=== PATIENT | female | born 1945 | race African-American/Black ===

== ENCOUNTER 2017-07-29 01:01 | Inpatient (IN) ==
[2017-07-29] MEDS ORDERED: SODIUM CHLORIDE 0.9% 1,000 ML IV STA (01:35)
--- NOTE | 2017-07-29 01:46 | Emergency Department Note ---
Carlos Valdez Brooke, am scribing for, and in the presence of, Erika Roach MD 01: 24. Doc Valdez Leanne, MD, personally performed the services described in this documentation, ascribed by Alma Gonzalez in my presence, and it is both accurate and complete . Arrival - Arrival Chief Complaint: Non-Specific ED Nursing Triage Note: C/O Trouble swallowing. Onset yesterday. Pt reports that everytime she eats or drinks something it feels like it gets stuck in her throat. Pt is able to swallow saliva at time of triage- no drooling or respiratory distress noted. Mode of Arrival: Stretcher Limitations: No Limitations Source: Patient, EMS, RN Notes Reviewed Time Seen by Provider: 07/29/17 01:17 - History of Present Illness HPI Narrative: Patient is a 71 year old female brought into the ED, from [facility], with c /o trouble swallowing. Patient says when she swallows it feels like something is "choking me." She says she is able to swallow but it not like she normally can. She states "it takes me a while" when swallowing. Patient says she has not eaten in three days but has been drinking broth. Patient has had her esophagus dilated in the past. She also complains of epigastric pain that radiates through to her back. She has no other complaints. Patient has PMHx of HTN, pneumonia, kidney stones, GI bleed, diverticulitis, chronic renal insufficiency , pancreatitis, GI ulces, mild esophagitis, jejunal AVMs, and back/neck problems. Date of Last Menstrual Period: PM Allergies/Adverse Reactions: Allergies Allergy/AdvReac Type Severity Reaction Status Date / Time Latex, Natural Rubber Allergy Intermediate RASH Verified 07/29/17 01:10 Zolpidem [From Ambien] Allergy Intermediate RASH Verified 07/29/17 01:10 acetaminophen Allergy ANAPHYLAXIS Verified 04/23/15 20:08 [From Darvocet-N] nalbuphine [From Nubain] Allergy ANAPHYLAXIS Verified 04/23/15 20:08 propoxyphene Allergy ANAPHYLAXIS Verified 04/23/15 20:08 [From Darvocet-N] Home Medications: Home Medications Medication Instructions Recorded Confirmed Type Amlodipine Besylate 10 mg DAILY 04/23/15 11/13/16 History Citalopram Hydrobromide 20 mg PO DAILY 04/23/15 11/13/16 History [Citalopram HBr] Donepezil [Aricept] 5 mg PO BEDTIME 04/23/15 11/13/16 History Esomeprazole Magnesium [Nexium] 40 mg DAILY 04/23/15 11/13/16 History Gabapentin 100 mg PO TID 04/23/15 11/13/16 History clonazePAM [Clonazepam] 0.5 mg PO BEDTIME 04/23/15 11/13/16 History HYDROcodone/ACETAMIN 10-325 [[place] 1 tablet PO Q4-6H PRN #20 tablet 04/25/15 Rx 10-325] Review of System - Review of System 12 point system: reviewed and no additional remarkable complaints except as stated - Review of System Constitutional: Absent: fever Head/Ears/Nose/Throat: Present: other (trouble swallowing) Respiratory: Absent: respiratory distress Gastrointestinal: Present: abdominal pain (epigastric) Musculoskeletal: Present: back pain (through from epigastric abd pain) Skin: Absent: rash Medical,Surgical,& Family Hx - Medical History Cardio: History of: Hypertension Neurology: No history of: Seizures Respiratory: History of: Pneumonia Renal: History of: Renal Problems (A chronic renal insufficiency) Genitourinary: History of: Kidney Stones Gastrointestinal: History of: Diverticulitis/ Diverticulosis, Gastrointestinal Bleed, Pancreatitis (calcific changes status post ERCP on 12/16/09 with sphincterotomy ), GI Problems (ulcers, mild esophagitis, jejunal AVMs.) Musculoskeletal: History of: Back/Neck Problems - Surgical History Cardiac Surgeries: Sugical HX of: Cardiac Catheterization (2012) Thoracic Surgeries: Surgical HX of;: Lithotripsy (2012) HEENT Surgeries: Surgical HX of: Tonsilectomy & 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) Abdominal Surgeries: Surgical HX of: Colonoscopy (2011), EGD (2011) Reproductive Surgeries: Surgical HX of;: Hysterectomy - Family History Family History: Reports;: Family Cancer (lymphoma), Family Heart Disease (mother ) Denies;: Family Anesthesia Reaction, Family Diabetes, Family Hypertension, Family Psychiatric Problems, Family Stroke - Social History Smoking Status: Never smoker Frequency of Alcohol Use: None Type of Drug Use: None Exam Vital Signs: Vital Signs Temperature 98.3 F 07/29/17 01:01 Pulse Rate 55 L 07/29/17 01:01 Respiratory Rate 18 07/29/17 01:24 Blood Pressure 187/79 07/29/17 01:01 O2 Sat by Pulse Oximetry 98 07/29/17 01:01 - General General appearance: alert, in no apparent distress - Head Head exam: Present: atraumatic, normocephalic - Eye Eye exam: Present: normal appearance, PERRL, EOMI - ENT ENT exam: Present: normal exam - Neck Neck exam: Present: normal inspection - Chest Chest inspection: Present: normal inspection, symmetric chest wall rise - Respiratory Respiratory exam: Present: normal lung sounds bilaterally - Cardiovascular Cardiovascular exam: Present: regular rate, normal rhythm, normal heart sounds - Abdominal Exam Abdominal exam: Present: soft, normal bowel sounds. Absent: distention, tenderness - Extremities Exam Extremities exam: Present: normal inspection - Back Exam Back exam: Present: normal inspection - Neurological Exam Neurological exam: Present: alert, oriented X3 - Psychiatric Psychiatric exam: Present: normal affect, normal mood - Skin Skin exam: Present: warm, dry, intact, normal color Disposition Clinical Impression: Esophageal stricture Case discussed with: patient Additional Instructions: admit to hospitalist
--- NOTE | 2017-07-29 02:22 | Hospitalist Progress Note ---
Hospitalist: Subjective Interval history: Patient has been seen interviewed and examined while still in the emergency room. The story is that this is 71-year-old female started having abdominal pain 2 days prior. Patient presented to an outlying health facility ([facility]) with his symptoms. Pain was reported there was diffuse and in the last 2 days she has been unable to eat because solids faced could just be regurgitated but later was vomiting even liquids. 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 Nonsteroidal anti-inflammatory drug overuse could be an issue here. He claims there was needed to dilate her lower esophagus at one point. Gives a history of a having lost over 100 pounds in the course of the last 2 years. Whether this is a lower esophageal strictures or achalasia is not clear to me at this point. She had mentioned to the emergency room doctor prior to my interview that swallowing all was the major problem though to me she emphasized abdominal pain. Patient will be consulted to gastroenterology. In her past there is also history of cholelithiasis and also history of chronic pancreatitis making complaints of abdominal pain worrisome. She has chronic anemia with high MCV suggesting either B12 deficiency or toxins including alcohol. Platelet count and hemoglobin are normal ruling out possibility of myelodysplasia. Exam - Constitutional Vitals: Period Temp Pulse Resp BP Sys/Argueta Pulse Ox Last 24 Hr 98.3 F-98.3 F 55-74 16-18 149-187/79-79 98-100
--- NOTE | 2017-07-29 02:26 | Hospitalist History & Physical ---
Assessment and Plan (1) Abnormal weight loss Status: Acute Current Visit: Yes (2) Pancreatitis, chronic Status: Acute Assessment and plan: Repeat lipase obtain a CMP today. Also obtain ultrasound of the abdomen Current Visit: Yes (3) Postprandial vomiting Status: Acute Assessment and plan: Get a GI consultation for evaluation. Patient does have history of esophageal strictures. She may be in need of repeat bougienage Current Visit: Yes (4) Abdominal pain Status: Acute Assessment and plan: Place patient on Protonix IV 40 mg every 12 hours Current Visit: No History of Present Illness Chief complaint: Abdominal pain/vomiting with food intake History of present illness: Patient has been seen interviewed and examined while still in the emergency room. The story is that this is 71-year-old female started having abdominal pain 2 days prior. [facility] his symptoms. Pain was reported there was diffuse and in the last 2 days she has been unable to eat because solids faced could just be regurgitated but later was vomiting even liquids. 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 Nonsteroidal anti-inflammatory drug overuse could be an issue here. He claims there was needed to dilate her lower esophagus at one point. Gives a history of a having lost over 100 pounds in the course of the last 2 years. Whether this is a lower esophageal strictures or achalasia is not clear to me at this point. She had mentioned to the emergency room doctor prior to my interview that swallowing all was the major problem though to me she emphasized abdominal pain. Patient will be consulted to gastroenterology. In her past there is also history of cholelithiasis and also history of chronic pancreatitis making complaints of abdominal pain worrisome. She has chronic anemia with high MCV suggesting either B12 deficiency or toxins including alcohol. Platelet count and hemoglobin are normal ruling out possibility of myelodysplasia. Home Medications Medication Instructions Recorded Confirmed Type Amlodipine Besylate 10 mg DAILY 04/23/15 11/13/16 History Citalopram Hydrobromide 20 mg PO DAILY 04/23/15 11/13/16 History [Citalopram HBr] Donepezil [Aricept] 5 mg PO BEDTIME 04/23/15 11/13/16 History Esomeprazole Magnesium [Nexium] 40 mg DAILY 04/23/15 11/13/16 History Gabapentin 100 mg PO TID 04/23/15 11/13/16 History clonazePAM [Clonazepam] 0.5 mg PO BEDTIME 04/23/15 11/13/16 History HYDROcodone/ACETAMIN 10-325 [[place] 1 tablet PO Q4-6H PRN #20 tablet 04/25/15 Rx 10-325] Allergies Allergy/AdvReac Type Severity Reaction Status Date / Time Latex, Natural Rubber Allergy Intermediate RASH Verified 07/29/17 01:10 Zolpidem [From Ambien] Allergy Intermediate RASH Verified 07/29/17 01:10 acetaminophen Allergy ANAPHYLAXIS Verified 04/23/15 20:08 [From Darvocet-N] nalbuphine [From Nubain] Allergy ANAPHYLAXIS Verified 04/23/15 20:08 propoxyphene Allergy ANAPHYLAXIS Verified 04/23/15 20:08 [From Darvocet-N] Medical,Surgical,& Family Hx - Medical History Cardio: History of: Hypertension Neurology: No history of: Seizures Respiratory: History of: Pneumonia Renal: History of: Renal Problems (A chronic renal insufficiency) Genitourinary: History of: Kidney Stones Gastrointestinal: History of: Diverticulitis/ Diverticulosis, Gastrointestinal Bleed, Pancreatitis (calcific changes status post ERCP on 12/16/09 with sphincterotomy ), GI Problems (ulcers, mild esophagitis, jejunal AVMs.) Musculoskeletal: History of: Back/Neck Problems - Surgical History Cardiac Surgeries: Sugical HX of: Cardiac Catheterization (2012) Thoracic Surgeries: Surgical HX of;: Lithotripsy (2012) HEENT Surgeries: Surgical HX of: Tonsilectomy & 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 Patient is complaint of abdominal pain and nausea vomiting with food intake is what stands out. Apart from the chief complaint history of presenting illness and her past medical history the 12 point system is unremarkable Exam - Constitutional Vitals: Period Temp Pulse Resp BP Sys/Argueta Pulse Ox Last 24 Hr 98.3 F-98.3 F 55-74 16-18 149-187/79-79 98-100 General appearance: over weight - Head Head exam: Present: normocephalic, atraumatic - Eye Eye exam: Present: EOMI, other (Anicteric sclera no conjunctival petechia) Pupils: Present: YESIKA - ENT ENT exam: Present: normal oropharynx, other (He tends to roll hard time question tardive dyskinesia) - Neck Neck exam: Present: normal inspection - Respiratory Respiratory exam: Present: clear to auscultation bilaterally - Cardiovascular Cardiovascular exam: Present: regular rate and rhythm - GI/Abdominal GI/Abdominal exam: Present: tenderness (Diffuse tenderness in all 4 quadrants abdomen is however soft she holds her breath in inspiration when he palpates the right upper quadrant) - Extremities Exam Extremities exam: Present: full ROM - Neurological Exam Neurological exam: Present: alert, oriented X3, CN II-XII intact - Psychiatric Psychiatric exam: Present: normal affect, normal mood - Skin Skin exam: Present: normal color, warm, dry Results - Labs Lab Results: I have reviewed the past 24 hour labs (Lab test done in the [facility] to include normal chemistry sodium 143 potassium 3.8 chloride 107 bicarb of 25 BUN of 18 creatinine 1.2 and a glucose of 101 shows a white count of 7250 hemoglobin 12.6 hematocrit 39% platelet count of 338,000 however MCVs 104 urinalysis was clean there was no liver enzymes and no lipase done. These will be done here.)
[2017-07-29 02:45] LABS: Apearance,Urine CLEAR (Clear); Bilirubin,Urine Negative (Negative); Blood, Urine Negative (Negative); Glucose,Urine (UA) Negative (Negative); Ketones,Urine Negative (Negative); Nitrite,Urine Negative (Negative); Protein,Urine Negative; RBC,Urine 2 /HPF (0-4); Squamous Epithelial Cell,Urine Occasional /HPF (0-10); Urine Color Yellow (Yellow); Urine Specific Gravity 1.012 (1.001-1.035); Urine Urobilinogen < 2.0 EU/DL (0.2-1.0); WBC,Urine 11 /HPF (0-6)
[2017-07-29 02:53] LABS: Barbiturates Screen,Urine Negative (Negative); Benzodiazepines Screen,Urine Negative (Negative); Cannabinoid Screen,Urine Negative (Negative); Opiate Screen,Urine Positive (Negative); Phencyclidine Screen,Urine Negative (Negative)
[2017-07-29] MEDS ORDERED: HYDROmorphone 2 MG/1 ML VIAL ONE (03:04)
[2017-07-29] MEDS: HYDROmorphone 2 MG/1 ML VIAL IV PRN ×4 (03:04→18:15)
[2017-07-29] MEDS: DEXTROSE 5% NACL 0.9% 1,000 ML IV SCH ×2 (04:15→14:58)
[2017-07-29] MEDS: HEPARIN 5,000 UNIT/1 ML VIAL SUBCUT SCH ×2 (04:16→14:32)
[2017-07-29 07:23] LABS: Basophils % 0.4 % (0.0-0.8); Eosinophils # 0.2 10*3/uL (0.0-0.87); Eosinophils % 3.6 % (0.00-10.9); Hematocrit 32.7 VOL% (35.7-47.0); Immature Granulocytes % 0.2 %; Immature Granulocytes Absolute 0.01 #; Lymphocytes # 2.2 10*3/uL (1.4-4.0); Lymphocytes % 41.9 % (21.3-54.2); Mean Corpuscular HGB Conc 33.6 GM/DL (32-36); Mean Corpuscular Hemoglobin 34 PG (27-34); Mean Platelet Volume 10.4 FL (9.6-12.0); Monocytes # 0.4 10*3/uL (0.11-0.8); Monocytes % 7.6 % (1.7-12.7); Neutrophils # 2.4 10*3/uL (1.4-7.4); Neutrophils % 46.3 % (38.7-73.9); Platelet Count 287 T/CUMM (130-400); Red Blood Count 3.27 MC/CUMM (3.8-5.5); Red Cell Distribution Width 13.6 % (9.3-17.3); White Blood Count 5.3 T/CUMM (4-12)
[2017-07-29 07:57] LABS: Alanine Aminotransferase 16 U/L (13-56); Albumin 3.1 G/DL (3.4-5.0); Alkaline Phosphatase 139 U/L (45-117); Aspartate Amino Transferase 17 U/L (0-37); Bilirubin,Total < 0.39 MG/DL (0.2-1.0); Blood Urea Nitrogen 20 MG/DL (7-18); Calcium 9.2 MG/DL (8.5-10.1); Glucose 100 MG/DL (74-106); Sodium 143 MMOL/L (136-145); Total Protein 6.3 G/DL (6.4-8.3)
[2017-07-29 08:08] LABS: Folate 7.1 NG/ML (5.4-24.0)
[2017-07-29] MEDS: GABAPENTIN 300 MG CAPSULE PO SCH ×3 (08:37→21:25)
[2017-07-29] MEDS: PANTOPRAZOLE 40 MG VIAL IV SCH ×2 (08:37→22:50)
[2017-07-29] MEDS: amLODIPine 10 MG TABLET PO SCH (08:37)
[2017-07-29] MEDS: clonazePAM 0.5 MG TABLET PO SCH ×2 (08:38→21:24)
--- NOTE | 2017-07-29 10:13 | Ultrasound Report ---
Exam: Ultrasound abdomen Limited, right upper quadrant Clinical History: 71-year-old female with pain, abdominal, epigastric Technique: Real-time ultrasound right upper quadrant with image documentation Comparison: No relevant comparisons Findings: Liver: Unremarkable Gallbladder: Prior cholecystectomy. Common bile duct: Nondilated Pancreas: Unremarkable as visualized Right kidney: Simple cysts Impression: 1. No sonographic abnormalities to explain patient's symptoms. PROCEDURE INTERPRETED AT [facility] DEPARTMENT OF RADIOLOGY Final Report Signed by: Phong Powell
--- NOTE | 2017-07-29 11:59 | Gastrointestinal Consult Note ---
Assessment and Plan - Time spent with patient Time spent with patient: Greater than 30 minutes Time spent discussing smoking cessation with patient: more than 10 minutes (1) Dysphagia Status: Acute Current Visit: Yes (2) GERD (gastroesophageal reflux disease) Status: Chronic Current Visit: No (3) Epigastric pain Status: Acute Current Visit: No (4) Hiatal hernia Status: Acute Assessment and plan: PLEASE NOTE -- automatic citation of patient information is unavoidable in this electronic note. I have made a reasonable effort to review the information cited , but it is not a part of my evaluation, impression, or recommendation unless specifically discussed in the dictated text that follows. As well, voice recognition software was used in the creation of this clinical note. Reasonable effort was made to identify and correct gross errors. Despite proofreading, errors in well blower may be present, including nonsense verbiage at times. If you encounter such an error, please contact me at for discussion and correction. -- Dr. Little Chief complaint/Consult Question: Dysphagia, midepigastric abdominal pain Consult requested by: Nataly Outside records from [facility] were personally reviewed. History of present illness: This is a new patient, Marshall Croft, a 71-year- old woman with history of peptic ulcer disease, esophagitis, GE junction dilation for Schatzki ring in October 2016, transferred from [facility] complaining of epigastric abdominal pain, and trouble swallowing. Patient states she was starting to have some abdominal discomfort approximately 2 weeks ago, but for the last 3-5 days was having severe midepigastric pain radiating up the anterior chest, and around to the back, associated with shortness of breath, nausea, diaphoresis. This would occur with activity. She would sit down and rest and the shortness of breath, nausea, diaphoresis would resolve after about 5 minutes. The pain would ease off after about 10-15 minutes, but would worsen as soon as she would get up and move around again. This is associated with solid and liquid food dysphagia, sensation that the food is moving slowly, sticking along the esophagus, and some episodes of regurgitation of the food. She has not had solid food in 3 days, but able to drink broth and clear liquids. Patient states she has continued to avoid NSAIDs, using [place] only for pain, has been taking Pepcid twice daily regularly, and had a PPI daily added approximately 2 weeks ago when she called for pain. Pepcid and PPI have not helped significantly. Most recent GI note from October 2016 by BABAK Fletcher, noting similar presentation. History of recurring ulcers in the past with several EGDs done by Dr. Mann, prior to that most recent was April 2015 with prepyloric ulcers seen, thought to be due to Goody's powder. 11/14/16 EGD was done with bougie dilation of the esophagus. Dr. Rust noted mild obstructive ringlike structure at the GE junction consistent with reflux etiology. Small 2 cm hiatal hernia was present. Stomach and duodenum appeared normal without ulceration. 54 [place] bougie dilator was used with mild resistance and no blood on the dilator afterwards. GI review of systems included: heartburn, regurgitation, early satiety, dysphagia, odynophagia, abdominal pain, nausea, vomiting, hematemesis, weight loss, weight gain, fever, chills, fatigue, decreased appetite, diarrhea, constipation, hematochezia, melena, bloating, malodorous flatus, anal pain, or NSAID use, and was negative except as noted above. REVIEW OF SYSTEMS: Complete other review of systems negative except as noted in the HPI left hip pain, chronic back pain, pain related to knee and need for knee replacement. Outpatient medications: Personally reviewed Pepcid 20 mg p.o. twice daily -Possible PPI daily added 2 weeks ago, patient is not sure of the name Trazodone, clonazepam, Neurontin, amlodipine, hydrocodone acetaminophen 10/325, Aricept Inpatient medications: Personally reviewed Protonix 40 mg IV twice daily Amlodipine, clonazepam, Aricept, Neurontin, Heparin prophylaxis, Dilaudid IV as needed Past Medical History: Personally reviewed Social history: No prior or current tobacco. No prior or current alcohol Family history: Mother with lymphoma age 70, maternal uncle with throat cancer in his 60s PHYSICAL EXAMINATION: CONSTITUTIONAL: Vital signs reviewed as documented above. In no acute distress. Nontoxic-appearing. EYES: Anicteric conjunctiva. Extra-ocular movements are intact and symmetric. EARS: Able to hear speech at conversational volume level, no external trauma/ masses. MOUTH: No oral/mouth lesions or ulcers. No appearance of Janet. Upper dentures. NECK: No masses or crepitus. Thyroid is of normal size and symmetric. HEART: Regular rate, regular rhythm LUNGS:. No increased work of breathing or accessory muscle use. GI/ABDOMEN: Obese abdomen, soft, tenderness to palpation in the midepigastrium, no rebound tenderness, nondistended, no rigidity. No palpable mass. No appreciable hepatosplenomegaly. SKIN: No rash on face, arms, or hands. No palpable lesions MUSCULOSKELETAL: Laying in bed and moving easily. Muscle tone appears normal without any abnormal movements. PSYCH: Normal affect. Alert and oriented to person, place, and time. Laboratory: Personally reviewed CBC: WBC 5.3, hemoglobin 11, MCV 100, platelet 287 Chemistrysodium 143, potassium 4, chloride 109, bicarb 33, BUN 20, creatinine 1 , anion gap of 5 Liver associated enzymesAST 17, ALT 16, alk phos 139, total bilirubin less than 0.39, total protein 6.3, albumin 3.1 B12 747, folate 7.1 Lipase 140 U toxpositive for opioids, which patient is prescribed at home, otherwise negative Radiology: Personally reviewed reports Right upper quadrant ultrasound done 07/29/17unremarkable liver, prior cholecystectomy, nondilated CBD, unremarkable pancreas, right kidney with simple cysts. No acute abnormalities. Assessments: #Midepigastric pain with radiation to the chestassociated with shortness of breath, nausea, diaphoresis, worse with activity, relieved with rest. This is concerning for potential cardiac etiology of symptoms. Patient's history is obvious 6 significant for prior peptic ulcer disease related to NSAIDs, without ulcers on most recent EGD October 2016, but evidence of acid reflux with distal Schatzki ring status post dilation. Other differential diagnosis includes recurrent peptic ulcer disease, GE junction stricture with pill esophagitis versus resolved food impaction, esophagitis. #Dysphagia, esophageal, to solids and liquids, recurrent, acute on chronic with significant severity of symptoms over the last 3 days. This is suggestive of possible transient food impaction, patient not tolerating liquids, but still requiring to drink slowly. Now also with liquid dysphagia. EGD done October 2016 without evidence of mass or malignancy, but Schatzki ring with appearance consistent of acid reflux induced. Has been taking Pepcid regularly twice daily and continuing to avoid NSAIDs. Reports that after her recent dilation her symptoms have been completely resolved until the last few days, which makes underlying motility disorder less likely. No lesions in the mouth to suggest candidal esophagitis at this time. #Other specified counseling -- The patient was seen for greater than 30 minutes. The patient was counseled for greater than 50% of this time regarding differential diagnosis, likely diagnosis, diagnostic and therapeutic alternatives, risks/benefits/alternatives of medications and procedures, and plan of care generally. The patient expressed understanding and wishes to proceed. Recommendations: -Defer to primary team for cardiac evaluation -Agree with IV twice daily PPI -We will add Carafate 4 times daily, this can be used scheduled or as needed, but will wash off with eating or drinking. For maximal effect should avoid eating or drinking 30 minutes after, but is sometimes needed prior to meals to cd storage and materials make up helper in swallowing by improving dysphagia symptoms. -Continue to avoid NSAIDs for life -If no acute cardiac syndrome, will likely plan for EGD tomorrow with possible dilation by Dr. Rust -Patient reports last colonoscopy approximately 45 years ago, with polyps. May need repeat outpatient colonoscopy, will defer to Dr. Rust. Perla Little MD, MPH STAFF DU[employer] TRUCK OPERATOR Current Visit: No History of Present Illness History of present illness: Ms. Croft is a 71 year old female Home Medications Medication Instructions Recorded Confirmed Type Amlodipine Besylate 10 mg DAILY 04/23/15 07/29/17 History Donepezil [Aricept] 5 mg PO BEDTIME 04/23/15 07/29/17 History clonazePAM [Clonazepam] 1 mg PO BID 04/23/15 07/29/17 History HYDROcodone/ACETAMIN 10-325 [[place] 1 tablet PO Q4-6H PRN #20 tablet 04/25/1503/11 Rx 10-325] Famotidine Tab [Pepcid Tab] 20 mg PO BID 07/29/17 07/29/17 History Gabapentin Cap/Tab [Neurontin 300 mg PO TID 07/29/17 07/29/17 History Cap/Tab] traZODone [Desyrel] 50 mg PO DAILY 07/29/17 07/29/17 History Allergies Allergy/AdvReac Type Severity Reaction Status Date / Time Latex, Natural Rubber Allergy Intermediate RASH Verified 07/29/17 01:10 Zolpidem [From Ambien] Allergy Intermediate RASH Verified 07/29/17 01:10 acetaminophen Allergy ANAPHYLAXIS Verified 04/23/15 20:08 [From Darvocet-N] nalbuphine [From Nubain] Allergy ANAPHYLAXIS Verified 04/23/15 20:08 propoxyphene Allergy ANAPHYLAXIS Verified 04/23/15 20:08 [From Darvocet-N] Medical,Surgical,& Family Hx - Medical History Cardio: History of: Hypertension Neurology: History of: Dementia No history of: Seizures Respiratory: History of: Pneumonia Renal: History of: Renal Problems (A chronic renal insufficiency) Genitourinary: History of: Kidney Stones Gastrointestinal: History of: Diverticulitis/ Diverticulosis, GERD, Gastrointestinal Bleed, Pancreatitis (calcific changes status post ERCP on with sphincterotomy ), GI Problems (ulcers, mild esophagitis, jejunal AVMs.) Musculoskeletal: History of: Back/Neck Problems - Surgical History Cardiac Surgeries: Sugical HX of: Cardiac Catheterization (2012) Thoracic Surgeries: Surgical HX of;: Lithotripsy (2012) HEENT Surgeries: Surgical HX of: Tonsilectomy & 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) Abdominal Surgeries: Surgical HX of: Cholecystectomy, Colonoscopy (2011), EGD ( 2011) Reproductive Surgeries: Surgical HX of;: Hysterectomy - Family History Family History: Reports;: Family Cancer (lymphoma), Family Heart Disease (mother ) Denies;: Family Anesthesia Reaction, Family Diabetes, Family Hypertension, Family Psychiatric Problems, Family Stroke - Social History Smoking Status: Never smoker Frequency of Alcohol Use: None Type of Drug Use: None Exam - Constitutional Vitals: Period Temp Pulse Resp BP Sys/Argueta Pulse Ox Last 24 Hr 97.4 F-98.3 F 50-74 16-20 122-187/68-79 94-100 Results - Labs CBC & BMP: 07/29/17 07:07 07/29/17 07:07
--- NOTE | 2017-07-29 13:59 | EKG Report ---
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
--- NOTE | 2017-07-29 15:17 | Cardiology Consult Note ---
<Candida Najera Raina - Last Filed: 07/29/17 15:14> Assessment and Plan - Time spent with patient Time spent with patient: Greater than 30 minutes (due to assessment, plan, and documentation) (1) Epigastric pain Status: Acute Assessment and plan: See plan of care listed below. Current Visit: No (2) Hypertension Status: Chronic Assessment and plan: See plan of care listed below. Current Visit: Yes (3) GERD (gastroesophageal reflux disease) Status: Chronic Assessment and plan: See plan of care listed below. Current Visit: No (4) History of gastric ulcer Status: Chronic Assessment and plan: See plan of care listed below. Current Visit: Yes (5) Dysphagia Status: Acute Assessment and plan: See plan of care listed below. Current Visit: Yes History of Present Illness - Data of Consult Patient: new to practice Consult date: 07/29/17 Requesting Physician: Nia Medeiros - Consult Narrative Reason for consult: epigastric pain History of present illness: Assisted Living Executive Director: seen in the remote past by Dr. Galloway Ms. Croft is a 71 year old female with a history of GERD, gastric ulcers, hypertension, chronic back pain. She is and lives at home with her grandson. She sometimes requires the use of a cane for ambulation. Risk factors are significant for: age, obesity, sedentary lifestyle , hypertension, family history of CAD. Her mother had several MIs in the past, mostly in her 70s. She has a long history of epigastric pain, many times related to NSAID use. She has undergone left heart catheterization in the past by Dr. Galloway on 11/09/14 and was found to have no significant obstructive disease and an EF of 65% with normal anterior, inferior, and apical wall motion. She was noted to have mild MR but no significant aortic stenosis. Ms. Croft was transferred to our facility from [facility] for further evaluation of abdominal pain and vomiting with food intake. Ms. Croft reports for the past 2 weeks she has had an umbilical-epigastric pain occur off and on. She describes it as being sharp in nature and lasting 15-20 minutes at a time. He has no association with rest or exertion and sometimes occurs during the day and sometimes occurs during the night. It will sometimes go away she takes antacids and sometimes go away if she sits down to rest. She reports at night she gets "hot sweats" with the pain. She reports she has been easily fatigued during the past couple weeks and has noted some dyspnea on exertion. She reports this seems to start just above her umbilicus and goes up towards her chest. She says that it feels like heartburn except worse. She reports that she has had pain similar to this in the past and Dr. Mann has kept her in the hospital for over a week with similar pain before. She was just previously in the hospital October 2016 with NSAID induced gastritis. She reports allergies to Tylenol, Nubain, and Darvocet. It is listed in the computer that her reaction is anaphylaxis but she states that this has never occurred. She reports that these only make her sick to her stomach and have abdominal pain. Upon arrival to our facility, she was noted to have an H&H of 11 and 32.7. Her potassium is 4.0, creatinine 1.0, magnesium 1.9. Abdominal ultrasound was obtained and reveals no sonographic abnormalities to explain the patient's symptoms. She has been seen in consultation by gastroenterology and is planned for EGD in the morning if she rules out for SD. ASSESSMENT/PLAN: 1. EPIGASTRIC PAIN - Patient reports symptoms atypical for cardiac etiology. We will continue to cycle cardiac biomarkers and EKGs and follow trend. If she rules out for SD, agree with proceeding with GI evaluation. In the future, she would likely benefit from risk stratification with nuclear stress testing due to her dyspnea on exertion. It's possible this could be done as an outpatient. Will further discuss with Dr. Meneses and await additional recommendations. 2. HYPERTENSION - Currently well controlled. Continue current plan of care. Will monitor and adjust accordingly. 3. HISTORY OF GERD - She has been placed on PPI IV BID. GI is following. She is for EGD in the morning if she rules out for SD. 4. HISTORY OF GASTRIC ULCERS - She has been placed on PPI IV BID. GI is following. She is for EGD in the morning if she rules out for SD. 5. DYSPHAGIA - She is for EGD with possible dilatation in the morning. She has a history of esophageal stricture. CC: Nia Medeiros MD - Home Medications and Allergies Home Medications: Home Medications Medication Instructions Recorded Confirmed Type Amlodipine Besylate 10 mg DAILY 04/23/15 07/29/17 History Donepezil [Aricept] 5 mg PO BEDTIME 04/23/15 07/29/17 History clonazePAM [Clonazepam] 1 mg PO BID 04/23/15 07/29/17 History HYDROcodone/ACETAMIN 10-325 [Pruden 1 tablet PO Q4-6H PRN #20 tablet 04/25/1503/11 Rx 10-325] Famotidine Tab [Pepcid Tab] 20 mg PO BID 07/29/17 07/29/17 History Gabapentin Cap/Tab [Neurontin 300 mg PO TID 07/29/17 07/29/17 History Cap/Tab] traZODone [Desyrel] 50 mg PO DAILY 07/29/17 07/29/17 History Allergies/Adverse Reactions: Allergies Allergy/AdvReac Type Severity Reaction Status Date / Time Latex, Natural Rubber Allergy Intermediate RASH Verified 07/29/17 01:10 Zolpidem [From Ambien] Allergy Intermediate RASH Verified 07/29/17 01:10 acetaminophen Allergy ANAPHYLAXIS Verified 04/23/15 20:08 [From Darvocet-N] nalbuphine [From Nubain] Allergy ANAPHYLAXIS Verified 04/23/15 20:08 propoxyphene Allergy ANAPHYLAXIS Verified 04/23/15 20:08 [From Darvocet-N] Review of systems: - Constitutional: Present: fatigue, As per HPI. Absent: anorexia, chills, daytime sleepiness, excessive sweating, fever(s), frequent falls, headache(s), increased appetite, lethargy, malaise, night sweats, stops breathing during sleep, weakness, weight gain, weight loss. - EENT Eyes: Present: As per HPI. Absent: blurry vision, diplopia, loss of vision Ears: Present: As per HPI. Absent: decreased hearing, ear discharge, ear pain Nose, mouth and throat: Present: dysphagia, As per HPI. Absent: epistaxis, headache(s), hoarseness, lip swelling, nasal congestion, neck mass, neck pain, sinus pressure, sore throat, throat swelling, tongue swelling, vertigo - Cardiovascular: Present: dyspnea, dyspnea on exertion, as per HPI. Absent: chest pain at rest, chest pain with activity, edema, claudication, diaphoresis, radiating jaw, neck or arm pain, lightheadedness, orthopnea, palpitations, PND - Respiratory: Present: dyspnea, dyspnea on exertion, as per HPI. Absent: cough , hemoptysis, wheezing, snoring, pain on inspiration - Gastrointestinal: Present: abdominal/epigastric pain, heartburn, nausea, vomiting, As per HPI. Absent: bloating, change in bowel habits, constipation, diarrhea, hematemesis, hematochezia, loose stools, melena, - Genitourinary: Present: As per HPI. Absent: difficulty urinating, dysuria, flank pain, hematuria, nocturia, urinary frequency, urinary incontinence - Musculoskeletal: Present: back pain, As per HPI. Absent: arthralgias, joint swelling, limited range of motion, muscle cramps, muscle weakness, myalgias - Neurological: Present: As per HPI. Absent: abnormal gait, abnormal speech, behavioral changes, confusion, convulsions, disequilibrium, dizziness, focal weakness, frequent falls, headache(s), memory loss, numbness, paresthesias, radicular pain, syncope, tremor(s) - Psychiatric: Present: As per HPI. Absent: anxiety, confusion, depression, panic attacks - Endocrine: Present: fatigue, As per HPI. Absent: cold intolerance, heat intolerance, polydipsia, polyphagia - Hematologic/Lymphatic: Present: As per HPI. Absent: easy bleeding, easy bruising, lymphadenopathy Medical,Surgical,& Family Hx - Medical History Cardio: History of: Hypertension No history of: CAD Neurology: History of: Dementia No history of: Seizures Respiratory: History of: Pneumonia Renal: History of: Renal Problems (A chronic renal insufficiency) Genitourinary: History of: Kidney Stones Gastrointestinal: History of: Diverticulitis/ Diverticulosis, GERD, Gastrointestinal Bleed, Pancreatitis (calcific changes status post ERCP on with sphincterotomy ), GI Problems (ulcers, mild esophagitis, jejunal AVMs.) Musculoskeletal: History of: Back/Neck Problems - Surgical History Cardiac Surgeries: Sugical HX of: Cardiac Catheterization (2012) Thoracic Surgeries: Surgical HX of;: Lithotripsy (2012) HEENT Surgeries: Surgical HX of: Tonsilectomy & 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) Abdominal Surgeries: Surgical HX of: Cholecystectomy, Colonoscopy (2011), EGD ( 2011) Reproductive Surgeries: Surgical HX of;: Hysterectomy - Family History Family History: Reports;: Family Cancer (lymphoma), Family Heart Disease (mother ) Denies;: Family Anesthesia Reaction, Family Diabetes, Family Hypertension, Family Psychiatric Problems, Family Stroke - Social History Smoking Status: Never smoker Frequency of Alcohol Use: None Type of Drug Use: None Marital Status: Lives With:: grandson Functional capacity: independent ambulation (occasionally uses cane) Physical Examination Vital Signs Temp Pulse Resp BP Pulse Ox 98.3 F 55 L 16 187/79 98 07/29/17 01:01 07/29/17 01:01 07/29/17 01:01 07/29/17 01:01 07/29/17 01:01 Exam: General appearance: Appears well. Pleasant and cooperative. Overweight, no acute distress. Head exam: Present: normal inspection, normocephalic, atraumatic. Absent: hematoma, laceration Eye exam: Present: EOMI. Absent: conjunctival injection, nystagmus, periorbital swelling, scleral icterus, laceration to eyelids, jaundice Pupils: Present: PERRL. Absent: constricted, dilated, fixed, irregular, unequal ENT exam: Present: normal exam, normal external ear exam, mucous membranes moist. Neck exam: Present: normal inspection, midline trachea. Absent: masses, lymphadenopathy, tenderness, thyromegaly, carotid bruit Respiratory exam: Present: clear to auscultation bilaterally. Absent: accessory muscle use, chest wall tenderness, rales, rhonchi, wheezing. Cardiovascular exam: Present: regular rate and rhythm. Absent: gallop, JVD, rubs, murmur GI/Abdominal exam: Present: normal bowel sounds, soft, tenderness upon palpation of RUQ and LUQ. Absent: distended, firm, hernia, mass. Extremities exam: Present: Normal Gait, No Clubbing, No Cyanosis, Upper Extr. Pulses 2+, Lower Extr. Pulses 2+, No edema. Capillary refill less than 3 seconds. Musculoskeletal: Present: No Fluid Collection, No Pain, Normal Range of Motion Back exam: Present: normal inspection. Absent: muscle spasm, vertebral tenderness Neurological exam: Present: awake, alert, oriented X3, Moves all extremities well without hemiparesis or paralysis. Grossly intact without resting or essential tremor Psychiatric exam: Present: normal affect, normal mood Skin exam: Present: normal color, warm, dry, intact. Absent: cyanosis, diaphoretic, rash, urticaria Result/EKG - Labs CBC & BMP: 07/29/17 07:07 07/29/17 07:07 Lab Results: I have reviewed the past 24 hour labs Labs: Laboratory Results - last 24 hr 07/29/17 07/29/17 07/29/17 02:34 02:34 07:07 WBC 5.3 RBC 3.27 L Hgb 11.0 L Hct 32.7 L MCV 100.0 MCH 34 MCHC 33.6 RDW 13.6 Plt Count 287 MPV 10.4 Neut % (Auto) 46.3 Lymph % (Auto) 41.9 [place] % (Auto) 7.6 Eos % (Auto) 3.6 Baso % (Auto) 0.4 Neut # (Auto) 2.4 Lymph # (Auto) 2.2 [place] # (Auto) 0.4 Eos # (Auto) 0.2 Baso # (Auto) 0.0 Immature Gran % 0.2 Nucleated RBC % 0.0 Immature Gran # 0.01 Nucleated RBCs # 0.00 Immature Plt Fraction 0.0 Sodium Potassium Chloride Carbon Dioxide Anion Gap BUN Creatinine GFR Calculation BUN/Creatinine Ratio Glucose Calculated Osmolality Calcium Magnesium Total Bilirubin AST ALT Alkaline Phosphatase Total Protein Albumin Globulin Albumin/Globulin Ratio Lipase Vitamin B12 Folate Urine Color Yellow Urine Appearance Clear Urine pH 6.0 Ur Specific [place] 1.012 Urine Protein Negative Urine Glucose (UA) Negative Urine Ketones Negative Urine Blood Negative Urine Nitrate Negative Urine Bilirubin Negative Urine Urobilinogen < 2.0 H Urine Leukocytes Trace Urine RBC 2 Urine WBC 11 Ur Squamous Epith Cells Occasional Ur Culture Indicated? Results to follow Urine Opiates Screen Positive H Ur Barbiturates Screen Negative Ur Phencyclidine Scrn Negative U Amphetamine/Methamph Negative U Benzodiazepines Scrn Negative U Cocaine Metab Screen Negative U Cannabinoids Screen Negative 07/29/17 07/29/17 07/29/17 07:07 07:07 07:07 WBC RBC Hgb Hct MCV MCH MCHC RDW Plt Count MPV Neut % (Auto) Lymph % (Auto) [place] % (Auto) Eos % (Auto) Baso % (Auto) Neut # (Auto) Lymph # (Auto) [place] # (Auto) Eos # (Auto) Baso # (Auto) Immature Gran % Nucleated RBC % Immature Gran # Nucleated RBCs # Immature Plt Fraction Sodium 143 Potassium 4.0 Chloride 109 H Carbon Dioxide 33 H Anion Gap 5.0 BUN 20 H Creatinine 1.00 GFR Calculation 63 BUN/Creatinine Ratio 20.00 Glucose 100 Calculated Osmolality 287.0 Calcium 9.2 Magnesium Total Bilirubin < 0.39 AST 17 ALT 16 Alkaline Phosphatase 139 H Total Protein 6.3 L Albumin 3.1 L Globulin 3.2 Albumin/Globulin Ratio 0.9 L Lipase 140.0 Vitamin B12 747 Folate 7.1 Urine Color Urine Appearance Urine pH Ur Specific [place] Urine Protein Urine Glucose (UA) Urine Ketones Urine Blood Urine Nitrate Urine Bilirubin Urine Urobilinogen Urine Leukocytes Urine RBC Urine WBC Ur Squamous Epith Cells Ur Culture Indicated? Urine Opiates Screen Ur Barbiturates Screen Ur Phencyclidine Scrn U Amphetamine/Methamph U Benzodiazepines Scrn U Cocaine Metab Screen U Cannabinoids Screen 07/29/17 07:07 WBC RBC Hgb Hct MCV MCH MCHC RDW Plt Count MPV Neut % (Auto) Lymph % (Auto) [place] % (Auto) Eos % (Auto) Baso % (Auto) Neut # (Auto) Lymph # (Auto) [place] # (Auto) Eos # (Auto) Baso # (Auto) Immature Gran % Nucleated RBC % Immature Gran # Nucleated RBCs # Immature Plt Fraction Sodium Potassium Chloride Carbon Dioxide Anion Gap BUN Creatinine GFR Calculation BUN/Creatinine Ratio Glucose Calculated Osmolality Calcium Magnesium 1.9 Total Bilirubin AST ALT Alkaline Phosphatase Total Protein Albumin Globulin Albumin/Globulin Ratio Lipase Vitamin B12 Folate Urine Color Urine Appearance Urine pH Ur Specific [place] Urine Protein Urine Glucose (UA) Urine Ketones Urine Blood Urine Nitrate Urine Bilirubin Urine Urobilinogen Urine Leukocytes Urine RBC Urine WBC Ur Squamous Epith Cells Ur Culture Indicated? Urine Opiates Screen Ur Barbiturates Screen Ur Phencyclidine Scrn U Amphetamine/Methamph U Benzodiazepines Scrn U Cocaine Metab Screen U Cannabinoids Screen - EKG EKG results: interpreted by me, sinus rhythm <Jet Meneses - Last Filed: 07/29/17 16:00> History of Present Illness - Consult Narrative History of present illness: Cardiology addendum Patient examined chart reviewed discussed with nurse Candida Najera NP. Mid epigastric pain and some trouble swallowing. EGD done November 10, 2014 showed prepyloric ulcers felt to be due to NSAID use and hiatal hernia by Dr. Mann. EGD done April 25, 2015 showed healed prepyloric gastric ulcer and hiatal hernia last EGD November 14, [address] Thaggard showed hiatal hernia and a distal esophageal stricture which was dilated. Patient now using Pruden for pain and avoiding NSAIDs. Chronic GE reflux. She has dinner at 4 PM and tries to avoid all bedtime snacks. She takes Pepcid 40 mg twice daily and Mylanta as needed. Lifetime non-smoker and nondrinker. She had normal coronaries and ejection fraction 65% by cardiac cath October by Dr. Galloway. The patient is and lives with her grandson in [place]. She has 3 living children. EKG shows normal sinus rhythm with preserved airways and ST-T wave changes. Chest x-ray shows a normal heart size with no infiltrate or effusion. No history of exertional angina or heart failure. Troponin negative 2. Normal cardiac exam. No carotid bruit. Clear lungs. Impression Recurrent GE reflux /stricture Noncardiac chest pain. Widely patent coronaries ejection fraction 65% by cath November 09, 2014 Plan EGD in a.m. CC: Nia Medeiros MD Physical Examination Vital Signs Temp Pulse Resp BP Pulse Ox 98.3 F 55 L 16 187/79 98 07/29/17 01:01 07/29/17 01:01 07/29/17 01:01 07/29/17 01:01 07/29/17 01:01 Result/EKG - Labs CBC & BMP: 07/29/17 07:07 07/29/17 07:07 Labs: Laboratory Results - last 24 hr 07/29/17 07/29/17 07/29/17 02:34 02:34 07:07 WBC 5.3 RBC 3.27 L Hgb 11.0 L Hct 32.7 L MCV 100.0 MCH 34 MCHC 33.6 RDW 13.6 Plt Count 287 MPV 10.4 Neut % (Auto) 46.3 Lymph % (Auto) 41.9 [place] % (Auto) 7.6 Eos % (Auto) 3.6 Baso % (Auto) 0.4 Neut # (Auto) 2.4 Lymph # (Auto) 2.2 [place] # (Auto) 0.4 Eos # (Auto) 0.2 Baso # (Auto) 0.0 Immature Gran % 0.2 Nucleated RBC % 0.0 Immature Gran # 0.01 Nucleated RBCs # 0.00 Immature Plt Fraction 0.0 Sodium Potassium Chloride Carbon Dioxide Anion Gap BUN Creatinine GFR Calculation BUN/Creatinine Ratio Glucose Calculated Osmolality Calcium Magnesium Total Bilirubin AST ALT Alkaline Phosphatase Total Creatine Kinase CK-MB (CK-2) Troponin I Total Protein Albumin Globulin Albumin/Globulin Ratio Lipase Vitamin B12 Folate Urine Color Yellow Urine Appearance Clear Urine pH 6.0 Ur Specific [place] 1.012 Urine Protein Negative Urine Glucose (UA) Negative Urine Ketones Negative Urine Blood Negative Urine Nitrate Negative Urine Bilirubin Negative Urine Urobilinogen < 2.0 H Urine Leukocytes Trace Urine RBC 2 Urine WBC 11 Ur Squamous Epith Cells Occasional Ur Culture Indicated? Results to follow Urine Opiates Screen Positive H Ur Barbiturates Screen Negative Ur Phencyclidine Scrn Negative U Amphetamine/Methamph Negative U Benzodiazepines Scrn Negative U Cocaine Metab Screen Negative U Cannabinoids Screen Negative 07/29/17 07/29/17 07/29/17 07:07 07:07 07:07 WBC RBC Hgb Hct MCV MCH MCHC RDW Plt Count MPV Neut % (Auto) Lymph % (Auto) [place] % (Auto) Eos % (Auto) Baso % (Auto) Neut # (Auto) Lymph # (Auto) [place] # (Auto) Eos # (Auto) Baso # (Auto) Immature Gran % Nucleated RBC % Immature Gran # Nucleated RBCs # Immature Plt Fraction Sodium 143 Potassium 4.0 Chloride 109 H Carbon Dioxide 33 H Anion Gap 5.0 BUN 20 H Creatinine 1.00 GFR Calculation 63 BUN/Creatinine Ratio 20.00 Glucose 100 Calculated Osmolality 287.0 Calcium 9.2 Magnesium Total Bilirubin < 0.39 AST 17 ALT 16 Alkaline Phosphatase 139 H Total Creatine Kinase CK-MB (CK-2) Troponin I Total Protein 6.3 L Albumin 3.1 L Globulin 3.2 Albumin/Globulin Ratio 0.9 L Lipase 140.0 Vitamin B12 747 Folate 7.1 Urine Color Urine Appearance Urine pH Ur Specific [place] Urine Protein Urine Glucose (UA) Urine Ketones Urine Blood Urine Nitrate Urine Bilirubin Urine Urobilinogen Urine Leukocytes Urine RBC Urine WBC Ur Squamous Epith Cells Ur Culture Indicated? Urine Opiates Screen Ur Barbiturates Screen Ur Phencyclidine Scrn U Amphetamine/Methamph U Benzodiazepines Scrn U Cocaine Metab Screen U Cannabinoids Screen 07/29/17 07/29/17 07:07 14:43 WBC RBC Hgb Hct MCV MCH MCHC RDW Plt Count MPV Neut % (Auto) Lymph % (Auto) [place] % (Auto) Eos % (Auto) Baso % (Auto) Neut # (Auto) Lymph # (Auto) [place] # (Auto) Eos # (Auto) Baso # (Auto) Immature Gran % Nucleated RBC % Immature Gran # Nucleated RBCs # Immature Plt Fraction Sodium Potassium Chloride Carbon Dioxide Anion Gap BUN Creatinine GFR Calculation BUN/Creatinine Ratio Glucose Calculated Osmolality Calcium Magnesium 1.9 Total Bilirubin AST ALT Alkaline Phosphatase Total Creatine Kinase 52 CK-MB (CK-2) < 1.0 Troponin I 0.046 H Total Protein Albumin Globulin Albumin/Globulin Ratio Lipase Vitamin B12 Folate Urine Color Urine Appearance Urine pH Ur Specific [place] Urine Protein Urine Glucose (UA) Urine Ketones Urine Blood Urine Nitrate Urine Bilirubin Urine Urobilinogen Urine Leukocytes Urine RBC Urine WBC Ur Squamous Epith Cells Ur Culture Indicated? Urine Opiates Screen Ur Barbiturates Screen Ur Phencyclidine Scrn U Amphetamine/Methamph U Benzodiazepines Scrn U Cocaine Metab Screen U Cannabinoids Screen
[2017-07-29 15:46] LABS: Troponin I Only 0.046 NG/ML (0.00-0.045)
--- NOTE | 2017-07-29 15:58 | ECHO Report ---
Marshall Croft Exam Date: 07/29/2017 13:59 Referring Physician: Technologist: Caitlin Espinosa Age: 71 Ht (in): 60 Wt (lb): 154 Gender: F Exam Location: [facility] Echo Indications: abd. pain, vomiting, dysphia, GERD, epigastric pain, hiatal hernia, Hx. HTN BP: 109 / 69 HR: 47 Rhythm: Bradycardia Technical Quality: IMPRESSIONS Left ventricular ejection fraction is estimated at 50-55%. Mild concentric left ventricular hypertrophy with mild diastolic dysfunction. The left atrium is mildly enlarged. Mildly thickened mitral valve with mild mitral regurgitation. Mild aortic valve sclerosis with trace to mild aortic valve regurgitation. Mild tricuspid valve regurgitation. MEASUREMENTS (Male / Female) Normal Values 2D ECHO LV Diastolic Diameter PLAX 4.5 cm 4.2 - 5.9 / 3.9 - 5.3 cm LV Systolic Diameter PLAX 2.3 cm LV Fractional Shortening PLAX 49.3 % IVS Diastolic Thickness 1.3 cm 0.6 - 1.0 / 0.6 - 0.9 cm LVPW Diastolic Thickness 1.3 cm 0.6 - 1.0 / 0.6 - 0.9 cm Aortic Root Diameter 2.7 cm LA Systolic Diameter LX 4.1 cm 3.0 - 4.0 / 2.7 - 3.8 cm DOPPLER TR Peak Velocity 257.0 cm/s TR Peak Gradient 26.4 mmHg FINDINGS Left Ventricle Normal left ventricular cavity size. Mild concentric left ventricular hypertrophy with mild diastolic dysfunction. Left ventricular ejection fraction is estimated at 50-55%. Right Ventricle Normal right ventricular size. Right Atrium Normal right atrial size. Left Atrium The left atrium is mildly enlarged. Mitral Valve Mildly thickened mitral valve with mild mitral regurgitation. Aortic Valve Mild aortic valve sclerosis with trace to mild aortic valve regurgitation. Tricuspid Valve Morphologically normal tricuspid valve. Mild tricuspid valve regurgitation. Tricuspid regurgitation velocities suggest a PAP of 26.4 mmHg + RAP. Pulmonic Valve Morphologically normal pulmonic valve. Trace pulmonary valve regurgitation. Pericardium No pericardial effusion. Aorta Normal size aortic root and proximal ascending aorta. Monty Tovar (Electronically Signed) Final Date: 29 July 2017 15:57
[2017-07-29] MEDS: oxyCODONE IR 5 MG TABLET PO PRN ×2 (16:06→22:55)
[2017-07-29 18:35] LABS: Troponin I Only 0.043 NG/ML (0.00-0.045)
[2017-07-29] MEDS: DONEPEZIL 5 MG TABLET PO SCH (21:24)
[2017-07-29 21:56] LABS: Troponin I Only 0.038 NG/ML (0.00-0.045)
[2017-07-30] MEDS: HEPARIN 5,000 UNIT/1 ML VIAL SUBCUT SCH ×2 (02:25→16:09)
[2017-07-30] MEDS: HYDROmorphone 2 MG/1 ML VIAL IV PRN ×4 (03:24→23:40)
[2017-07-30] MEDS: ONDANSETRON 4 MG/2 ML VIAL IV PRN (03:25)
--- NOTE | 2017-07-30 06:31 | EKG Report ---
Stationary ECG Study [facility] Test Date: 07/29/2017 9:41:03 PM Pat Name: SANJEEV EAGLE Department: Room: 520 Gender: F Optometry Assistant: RT : 1945 Requested by: Lobo Najera Order Number: [id number] Reading MD: MARKOS PARRY Intervals [place] Rate: 46 P: 52 [place]: 143 QRS: 20 QRSD: 105 T: 68 QT: 381 QTc: 342 Interpretive Statements SINUS BRADYCARDIA NONSPECIFIC T-WAVE ABNORMALITY Electronically Signed On 07-30-17 16:16:40 CDT by MARKOS PARRY [email or web address]
[2017-07-30] MEDS: DEXTROSE 5% NACL 0.9% 1,000 ML IV SCH ×3 (08:05→21:01)
[2017-07-30] MEDS: PANTOPRAZOLE 40 MG VIAL IV SCH ×2 (08:43→21:02)
--- NOTE | 2017-07-30 12:41 | Gastrointestinal Progress Note ---
Assessment and Plan (1) Dysphagia Status: Acute Assessment and plan: 07/30-continued complaints of dysphagia with schedule EGD today, at this time being postponed tomorrow due to no IV access. Following IV access, may begin full liquid diet continue to monitor. Plan an addendum to follow Dr. Rust. Current Visit: Yes Gastroenterology - PN: Subj Interval history: CC: Dysphagia Patient is seen, awake and alert with family at bedside. She is scheduled for an EGD today however at this time she is not have IV access and difficulty with nursing staff obtaining this on the floor. She is scheduled for central line placement with IR however this is currently pending therefore at this time it appears the EGD watch for postponed to tomorrow. Patient and daughter are aware of this. At this time, we will plan to proceed with EGD on tomorrow due to no IV access. Following IV access, may start full liquid diet. Patient states she is having continued dysphagia at this time. Abdomen soft, nontender. ROS: Denies shortness breath or chest pain Exam (Progress Note) - Constitutional Vitals: Period Temp Pulse Resp BP Sys/Argueta Pulse Ox Last 24 Hr 97.3 F-98.6 F 46-156 16-20 98-123/53-64 92-95 General appearance: normal weight, no acute distress - Head Head exam: Present: normal inspection, normocephalic - Eye Eye exam: Present: other (Lids and conjunctivae are). Absent: scleral icterus - ENT ENT exam: Present: normal exam, normal oropharynx - Neck Neck exam: Present: normal inspection - Respiratory Respiratory exam: Present: clear to auscultation bilaterally. Absent: rales, rhonchi, wheezes - Cardiovascular Cardiovascular exam: Present: regular rate and rhythm. Absent: diastolic murmur , JVD, systolic murmur - GI/Abdominal GI/Abdominal exam: Present: normal bowel sounds, soft. Absent: ascites, distended, mass, organomegaly, tenderness - Extremities Exam Extremities exam: Present: normal inspection, full ROM - Back Exam Back exam: Present: normal inspection - Neurological Exam Neurological exam: Present: alert, oriented X3 - Psychiatric Psychiatric exam: Present: normal affect, normal mood - Skin Skin exam: Present: normal color, warm, dry Results - Labs CBC & BMP: 07/29/17 07:07 07/29/17 07:07 Lab Results: I have reviewed the past 24 hour labs
--- NOTE | 2017-07-30 13:39 | Event Note ---
I stopped by to see Ms. Crotf today; however, she was not in her room. There was a family member present who informed me that she was just taken to have a central line placed and was then going for her EGD. We will follow up with Ms. Croft tomorrow. She has ruled out for OR with unremarkable cardiac biomarkers and EKGs. Echocardiogram revealed EF 50-55%, mild LVH with mild diastolic dysfuntion, mildly enlarged LA, mild MR, trace to mild AI, and mild TR.
[2017-07-30] MEDS: clonazePAM 0.5 MG TABLET PO SCH ×2 (13:44→21:03)
[2017-07-30] MEDS: GABAPENTIN 300 MG CAPSULE PO SCH ×3 (13:45→21:02)
[2017-07-30] MEDS: oxyCODONE IR 5 MG TABLET PO PRN ×2 (13:45→21:02)
[2017-07-30] MEDS: amLODIPine 10 MG TABLET PO SCH (13:45)
--- NOTE | 2017-07-30 14:54 | Post Interventional Procedure ---
Pre-op diagnosis: IV access needed for medication. Abdominal pain Post-op diagnosis: same Procedure: Ultrasound-guided placement of right IJ central line Radiologist: Bryanna Rust Anesthesia: local Specimens: none sent Estimated blood loss: none Complications: none Condition: stable Description/Findings: Informed consent was obtained. A formal timeout was performed. Sonographic evaluation of the right upper extremity demonstrates patent and compressible right internal jugular vein. The right side of neck was prepped and draped in sterile fashion. Maximum sterile barrier technique was utilized. 3 cc 1% lidocaine was administered subcutaneously. Under sonographic guidance, an angiocatheter needle was advanced into the vein. A captured sonographic image documents the position of the needle. A guidewire was advanced into the superior vena cava, with subsequent removal of the angiocatheter. A 7 Luxembourgish by 20 cm arrow triple lumen central venous line was advanced over the wire until the tip was at the RA-SVC junction. The position of the catheter was confirmed with fluoroscopic guidance and an image stored in PACS. The wire and sheath were removed. All ports of the PICC were aspirated and flushed with heparinized saline. The device was secured with a StatLock. Fluoroscopy: 0.4 minutes. Fluoroscopic images stored: 1 Impression: Right IJ central line line ready for immediate use. Routine catheter care. Assessment and Plan - Time spent with patient Time spent with patient: Less than 30 minutes
--- NOTE | 2017-07-30 14:57 | Interventional Radiology Rpt ---
History: IV access needed for medication. Abdominal pain Date: 07/30/2017 Study: Ultrasound-guided placement of right IJ central line Comparison exam: Not applicable Description: Informed consent was obtained. A formal timeout was performed. Sonographic evaluation of the right upper extremity demonstrates patent and compressible right internal jugular vein. The right side of neck was prepped and draped in sterile fashion. Maximum sterile barrier technique was utilized. 3 cc 1% lidocaine was administered subcutaneously. Under sonographic guidance, an angiocatheter needle was advanced into the vein. A captured sonographic image documents the position of the needle. A guidewire was advanced into the superior vena cava, with subsequent removal of the angiocatheter. A 7 Luxembourger by 20 cm arrow triple lumen central venous line was advanced over the wire until the tip was at the RA-SVC junction. The position of the catheter was confirmed with fluoroscopic guidance and an image stored in PACS. The wire and sheath were removed. All ports of the PICC were aspirated and flushed with heparinized saline. The device was secured with a StatLock. Fluoroscopy: 0.4 minutes. Fluoroscopic images stored: 1 Impression: Right IJ central line line ready for immediate use. Routine catheter care. PROCEDURE INTERPRETED AT [facility] DEPARTMENT OF RADIOLOGY Final Report Signed by: Dr. Braynna Rust
--- NOTE | 2017-07-30 16:41 | Hospitalist Progress Note ---
Hospitalist: Subjective Interval history: 71-year-old female admitted with dysphagia and abdominal pain. She still has no symptoms. She was scheduled for an EGD today but then lost her IV, and nursing staff was unable to put another one, so cardiology was consulted and although she has a right IJ line. She is on liquid diet. Exam - Constitutional Vitals: Period Temp Pulse Resp BP Sys/Argueta Pulse Ox Last 24 Hr 97.3 F-98.5 F 48-156 16-20 98-127/53-63 92-97 Exam: General: [No Acute Distress] HEENT: [Normocephalic, atraumatic, Extra ocular movements intact] Neck: [Supple, No JVD] Chest: [Clear to auscultation B/L] CV: [S1 + S2 audible without murmur, gallop or rub] Abd: [soft, mid epigastric tenderness, Non-distended, BS +] Ext: [No edema] Skin: [No purpura, bruising or rash] Rheumatologic: [No Joint deformities] Neurologic: [Strength 5/5 all extremities, no gross sensory deficits] Results - Labs CBC & BMP: 07/29/17 07:07 07/29/17 07:07 - Impressions Assessment and Plan: Esophageal dysphagia Status: Acute Current Visit: Yes Patient has history of GERD, esophageal strictures and peptic ulcer disease, she is scheduled for an EGD. Continue IV Protonix and Carafate. Patient has been evaluated by cardiology who feel like patient mostly have GI symptoms Pancreatitis, chronic Status: Acute Assessment and plan: She still has abdominal pain, continue as needed pain meds Current Visit: Yes Essential hypertension Status: Chronic Assessment and plan: Controlled Current Visit: Yes
[2017-07-30] MEDS: DONEPEZIL 5 MG TABLET PO SCH (21:02)
[2017-07-31] MEDS: oxyCODONE IR 5 MG TABLET PO PRN ×2 (00:51→23:07)
[2017-07-31] MEDS: HEPARIN 5,000 UNIT/1 ML VIAL SUBCUT SCH ×2 (03:58→14:48)
[2017-07-31] MEDS: HYDROmorphone 2 MG/1 ML VIAL IV PRN ×3 (06:56→20:01)
[2017-07-31] MEDS: DEXTROSE 5% NACL 0.9% 1,000 ML IV SCH ×2 (07:01→20:05)
--- NOTE | 2017-07-31 07:23 | EKG Report ---
Stationary ECG Study [facility] Test Date: 07/31/2017 7:22:05 AM Pat Name: SANJEEV EAGLE Department: Room: 520 Gender: F Press Catcher: ESE : [id number] Requested by: Lobo Najera Order Number: [id number] Reading MD: MARKOS PARRY Intervals [place] Rate: 53 P: 51 MN: 113 QRS: 48 QRSD: 92 T: -14 QT: 367 QTc: 351 Interpretive Statements SINUS BRADYCARDIA WITH SHORT MN INTERVAL NONSPECIFIC T-WAVE ABNORMALITY Electronically Signed On 07-31-17 14:05:22 CDT by MARKOS PARRY [email or web address]
[2017-07-31] MEDS: clonazePAM 0.5 MG TABLET PO SCH ×2 (09:23→20:07)
[2017-07-31] MEDS: GABAPENTIN 300 MG CAPSULE PO SCH ×3 (09:23→20:07)
[2017-07-31] MEDS: amLODIPine 10 MG TABLET PO SCH (09:24)
--- NOTE | 2017-07-31 09:42 | Cardiology Progress Note ---
<Candida Najera E - Last Filed: 07/31/17 11:15> Assessment and Plan - Time spent with patient Time spent with patient: Less than 30 minutes (1) Epigastric pain Status: Acute Assessment and plan: See plan of care listed below. Current Visit: No (2) Hypertension Status: Chronic Assessment and plan: See plan of care listed below. Current Visit: Yes (3) GERD (gastroesophageal reflux disease) Status: Chronic Assessment and plan: See plan of care listed below. Current Visit: No (4) History of gastric ulcer Status: Chronic Assessment and plan: See plan of care listed below. Current Visit: Yes (5) Dysphagia Status: Acute Assessment and plan: See plan of care listed below. Current Visit: Yes Cardiology - PN: Subj Interval history: [employer] Supervisor: seen in the remote past by Dr. Galloway SUMMARY: Ms. Croft is a 71 y/o BF who was transferred to our facility from [facility] for further evaluation of the abdominal pain, dysphagia, and vomiting. She has a history of GERD, gastric ulcers, hypertension, chronic back pain. We are consulted to see her due to chest pain/epigastric pain. She ruled out for VT with unremarkable cardiac biomarkers and EKGs. Echocardiogram revealed EF 50-55%, mild LVH with mild diastolic dysfuntion, mildly enlarged LA , mild MR, trace to mild AI, and mild TR. She is planned for EGD. Her pain that she has described sounds noncardiac in nature but she does mention easy fatigability and dyspnea on exertion of the past couple weeks. 2016: She was planned for EGD yesterday but did not have IV access until late yesterday afternoon. She had a right IJ central line placed by IR yesterday afternoon. She continues to have complaints of abdominal pain and nausea and reports she did not rest very well last night. Her vital signs have been stable. Dr. Galloway to follow with further plan and addendum. ASSESSMENT/PLAN: 1. EPIGASTRIC PAIN - Patient's pain is noncardiac in nature. She ruled out for VT and is planned for EGD. In the future, she would likely benefit from risk stratification with nuclear stress testing due to her dyspnea on exertion. It's possible this could be done as an outpatient. Will further discuss with Dr. Galloway and await additional recommendations. 2. HYPERTENSION - Currently well controlled. Continue current plan of care. Will monitor and adjust accordingly. 3. HISTORY OF GERD - She has been placed on PPI IV BID. GI is following. 4. HISTORY OF GASTRIC ULCERS - She has been placed on PPI IV BID. GI is following. 5. DYSPHAGIA - She is for EGD with possible dilatation. She has a history of esophageal stricture. Exam (Progress Note) - Constitutional Vitals: Period Temp Pulse Resp BP Sys/Argueta Pulse Ox Last 24 Hr 97.6 F-98.9 F 48-89 16-19 104-140/50-74 92-99 Exam: General appearance: Appears well. Pleasant and cooperative. Overweight, no acute distress. Head exam: Present: normal inspection, normocephalic, atraumatic. Absent: hematoma, laceration Eye exam: Present: EOMI. Absent: conjunctival injection, nystagmus, periorbital swelling, scleral icterus, laceration to eyelids, jaundice Pupils: Present: PERRL. Absent: constricted, dilated, fixed, irregular, unequal ENT exam: Present: normal exam, normal external ear exam, mucous membranes moist. Neck exam: Present: normal inspection, midline trachea. Absent: masses, lymphadenopathy, tenderness, thyromegaly, carotid bruit Respiratory exam: Present: clear to auscultation bilaterally. Absent: accessory muscle use, chest wall tenderness, rales, rhonchi, wheezing. Cardiovascular exam: Present: regular rate and rhythm. Absent: gallop, JVD, rubs, murmur GI/Abdominal exam: Present: normal bowel sounds, soft, tenderness upon palpation of RUQ and LUQ. Absent: distended, firm, hernia, mass. Extremities exam: Present: Normal Gait, No Clubbing, No Cyanosis, Upper Extr. Pulses 2+, Lower Extr. Pulses 2+, No edema. Capillary refill less than 3 seconds. Musculoskeletal: Present: No Fluid Collection, No Pain, Normal Range of Motion Back exam: Present: normal inspection. Absent: muscle spasm, vertebral tenderness Neurological exam: Present: awake, alert, oriented X3, Moves all extremities well without hemiparesis or paralysis. Grossly intact without resting or essential tremor Psychiatric exam: Present: normal affect, normal mood Skin exam: Present: normal color, warm, dry, intact. Absent: cyanosis, diaphoretic, rash, urticaria Result/EKG - Labs CBC & BMP: 07/29/17 07:07 07/29/17 07:07 Lab Results: I have reviewed the past 24 hour labs - EKG EKG results: interpreted by me, sinus rhythm <NileshPippa - Last Filed: 07/31/17 18:33> Cardiology - PN: Subj Interval history: I have personally interviewed and evaluated the patient, reviewed the chart and discussed medical decision-making with practitioner Reinaldo. I have read this note and agree with her documentation here in. Clinically she seems to have GI associated chest discomfort. She also complains to me of right flank pain, and she does have some CVA tenderness upon percussion. She does have a history of nephrolithiasis. I will order a KUB and renal ultrasound. Exam (Progress Note) - Constitutional Vitals: Period Temp Pulse Resp BP Sys/Argueta Pulse Ox Last 24 Hr 97.2 F-98.5 F 53-89 14-20 104-140/50-99 92-100 Result/EKG - Labs CBC & BMP: 07/29/17 07:07 07/29/17 07:07
[2017-07-31] MEDS: PANTOPRAZOLE 40 MG VIAL IV SCH ×2 (10:42→20:08)
[2017-07-31] MEDS ORDERED: PROPOFOL 200 MG/20 ML VIAL IV ONE (13:17)
[2017-07-31] MEDS ORDERED: LIDOCAINE 1% 5 ML VIAL ONE (13:17)
--- NOTE | 2017-07-31 13:19 | History and Physical Update ---
History and Physical Update - History and Physical H&P was reviewed, the patient examined and there: are no changes in the patients condition since last H&P was completed. - Physical Exam Mental Status: alert and oriented Heart: regular rate and rhythm Lung: clear to auscultation Abdomen: within normal limits Vitals: within normal limits
--- NOTE | 2017-07-31 13:34 | Anesthesia Post-Op ---
Anesthesia Post OP - Post Ansesthetic Evaluation Patient seen in post op: Yes Resp: within normal limits CV: within normal limits Mental: within normal limits Temp: within normal limits [id number]: within normal limits Nausea and Vomiting: within normal limits Pain: within normal limits
--- NOTE | 2017-07-31 16:39 | Hospitalist Progress Note ---
Hospitalist: Subjective Interval history: 71-year-old female admitted with dysphagia and abdominal pain. She went for an EGD today Exam - Constitutional Vitals: Period Temp Pulse Resp BP Sys/Argueta Pulse Ox Last 24 Hr 97.2 F-98.5 F 53-89 14-20 104-140/50-99 92-100 Exam: General: [No Acute Distress] HEENT: [Normocephalic, atraumatic, Extra ocular movements intact] Neck: [Supple, No JVD] Chest: [Clear to auscultation B/L] CV: [S1 + S2 audible without murmur, gallop or rub] Abd: [soft, mid epigastric tenderness, Non-distended, BS +] Ext: [No edema] Skin: [No purpura, bruising or rash] Rheumatologic: [No Joint deformities] Neurologic: [Strength 5/5 all extremities, no gross sensory deficits] Results - Labs CBC & BMP: 07/29/17 07:07 07/29/17 07:07 - Impressions Assessment and Plan: Esophageal dysphagia Status: Acute Current Visit: Yes Patient has history of GERD, esophageal strictures and peptic ulcer disease, she is scheduled for an EGD. Continue IV Protonix and Carafate. Patient is being followed by cardiology who feel like patient mostly have GI symptoms Pancreatitis, chronic Status: Acute Assessment and plan: She still has abdominal pain, continue as needed pain meds Current Visit: Yes Essential hypertension Status: Chronic Assessment and plan: Controlled Current Visit: Yes
--- NOTE | 2017-07-31 17:57 | Operative Note ---
Date of procedure: 07/31/17 Pre-op diagnosis: Esophageal dysphagia Procedure: Procedure: Esophagogastroduodenoscopy with bougie dilation esophagus Brief clinical abstract: 71-year-old female has had increasing dysphagia to solids. Indication for procedure: Esophageal dysphagia Endoscopic findings:[After informed consent was obtained, the patient was placed in the left lateral decubitus position. The gastroscope was inserted in the upper esophagus under direct vision with no resistance encountered. Esophageal mucosa appeared normal down to the squamocolumnar junction. There was a mildly obstructive fibrous appearing stricture at that level consistent with reflux etiology. No erosions or ulcerations were seen. Small hiatal hernia was present just distal to this. The endoscope was advanced in the stomach which was carefully examined including retroflexed view of the cardia and fundus with no other abnormalities noted. The pyloric channel, duodenal bulb, second and third portion of the duodenum appeared normal. The endoscope was removed and Whitt dilator size 54 Romansh inserted in the upper esophagus and advanced beyond the level of the GE junction with mild resistance encountered. No blood was noted on the dilator afterwards and she no chest pain. She appeared to tolerate the procedure well. Impression: #1 distal esophageal stricture secondary to GERD-status post bougie dilation #2 small hiatal hernia Recommendations: Follow symptomatically after above. Anesthesia: MAC Surgeon / Physician: Leroy Rust Estimated blood loss: none Specimens: none sent Condition: stable Disposition: post procedure unit Results - Labs CBC & BMP: 07/29/17 07:07 07/29/17 07:07 Discharge Plan - Discharge Medications No Action clonazePAM [Clonazepam] 1 mg PO BID Donepezil [Aricept] 5 mg PO BEDTIME Amlodipine Besylate 10 mg DAILY HYDROcodone/ACETAMIN 10-325 [[place] 10-325] 1 tablet PO Q4-6H PRN #20 tablet PRN Reason: Pain Severe (8-10) Famotidine Tab [Pepcid Tab] 20 mg PO BID Gabapentin Cap/Tab [Neurontin Cap/Tab] 300 mg PO TID traZODone [Desyrel] 50 mg PO DAILY - Follow Up or Referral - Forms/Instructions
[2017-07-31] MEDS: DONEPEZIL 5 MG TABLET PO SCH (20:07)
--- NOTE | 2017-07-31 20:38 | Ultrasound Report ---
US renal Bilateral Indication: Right costovertebral pain and tenderness, history of stones. Comparison: Prior ultrasound dated 07/29/2017 CT abdomen and pelvis 11/12/2016. Technique: Multiple longitudinal and transverse real-time sonographic images of the kidneys were obtained. Findings: The right kidney measures 10 x 5 x 5.2 cm, and the left kidney measures 10.7 x 5.6 x 4.5 cm cm. No solid lesions are visualized. There are multiple bilateral hypoechoic/anechoic lesions seen, which are most compatible simple appearing cysts. These measure up to 2.6 cm at the lower pole on the right and 2.2 cm at the upper pole the right. Within the left kidney, a similar lesion is visualized and measures up to 3.6 cm at the upper pole. There is no evidence of nephrolithiasis or abnormal perinephric fluid collections. Renal cortical echogenicity and thickness are within normal limits. There is no hydronephrosis. There is no evidence of surrounding ascites. Ultrasound images were captured and stored. IMPRESSION: No hydronephrosis or renal stones are visualized. Simple appearing bilateral renal cysts. PROCEDURE INTERPRETED AT [facility] DEPARTMENT OF RADIOLOGY Final Report Signed by: Berry Craven
--- NOTE | 2017-07-31 20:49 | XRay Report ---
XR KUB Clinical Information: Abdominal Pain CVA tenderness, pain, history of multiple renal stones Comparison: Renal ultrasound dated 07/31/2017 and prior abdomen radiograph 11/14/[address] abdomen pelvis 11/12/2016 Findings: Bowel gas pattern is nonspecific and within normal limits. No abnormally dilated small bowel loops are identified to suggest obstruction. There is no free air identified. Scattered fecal material is noted throughout colon, which is otherwise nondilated. No abnormal focal soft tissue masses or calcific densities are identified in the abdomen or pelvis. Lung bases appear predominantly clear. There is no acute osseous abnormality. No suspicious osseous lesions are identified. Mild leftward scoliotic deformity of the lumbar spine and multilevel degenerative changes are noted. Degenerative changes are moderate to advanced at L4-L5. Impression: No acute radiographic abnormality in the abdomen. A mild degree of fecal stasis/constipation is suspected. PROCEDURE INTERPRETED AT [facility] DEPARTMENT OF RADIOLOGY Final Report Signed by: Berry Craven
[2017-08-01] MEDS: HYDROmorphone 2 MG/1 ML VIAL IV PRN ×4 (01:16→21:22)
[2017-08-01] MEDS: HEPARIN 5,000 UNIT/1 ML VIAL SUBCUT SCH ×2 (03:27→15:29)
[2017-08-01] MEDS: oxyCODONE IR 5 MG TABLET PO PRN ×3 (05:23→19:12)
[2017-08-01] MEDS: DEXTROSE 5% NACL 0.9% 1,000 ML IV SCH ×2 (05:50→18:48)
[2017-08-01] MEDS: amLODIPine 10 MG TABLET PO SCH (08:01)
[2017-08-01] MEDS: GABAPENTIN 300 MG CAPSULE PO SCH ×3 (08:01→20:43)
[2017-08-01] MEDS: clonazePAM 0.5 MG TABLET PO SCH ×2 (08:01→20:43)
[2017-08-01] MEDS: PANTOPRAZOLE 40 MG VIAL IV SCH ×2 (08:02→20:44)
--- NOTE | 2017-08-01 08:49 | Gastrointestinal Progress Note ---
Assessment and Plan (1) Dysphagia Status: Acute Assessment and plan: 08/01-post EGD with dilation for esophageal stricture. Some improvements in swallowing. Plan an addendum to followed by Dr. Rust. 07/30-continued complaints of dysphagia with schedule EGD today, at this time being postponed tomorrow due to no IV access. Following IV access, may begin full liquid diet continue to monitor. Plan an addendum to follow Dr. Rust. Current Visit: Yes Gastroenterology - PN: Subj Interval history: CC: Dysphagia Patient is seen, awake alert sitting up in bed. States she had an uneventful night. States she is not feeling well today however cannot be specific regarding these complaints other than just generally not feeling well. She is post EGD on yesterday with finding of distal esophageal stricture with dilation and states that she is having some improvements in her swallowing at this time. Denies any abdominal pain, nausea or vomiting. Abdomen is soft, nontender. ROS: Denies shortness of breath or chest Exam (Progress Note) - Constitutional Vitals: Period Temp Pulse Resp BP Sys/Argueta Pulse Ox Last 24 Hr 97.2 F-98.8 F 53-66 14-22 106-137/49-99 95-100 General appearance: normal weight, no acute distress - Head Head exam: Present: normal inspection, normocephalic - Eye Eye exam: Present: other (Lids and conjunctivae are unremarkable). Absent: scleral icterus - ENT ENT exam: Present: normal exam, normal oropharynx - Neck Neck exam: Present: normal inspection - Respiratory Respiratory exam: Present: clear to auscultation bilaterally. Absent: rales, rhonchi, wheezes - Cardiovascular Cardiovascular exam: Present: regular rate and rhythm. Absent: diastolic murmur , JVD, systolic murmur - GI/Abdominal GI/Abdominal exam: Present: normal bowel sounds, soft. Absent: ascites, distended, mass, organomegaly, tenderness - Extremities Exam Extremities exam: Present: normal inspection, full ROM - Back Exam Back exam: Present: normal inspection - Neurological Exam Neurological exam: Present: alert, oriented X3 - Psychiatric Psychiatric exam: Present: normal affect, normal mood - Skin Skin exam: Present: normal color, warm, dry Results - Labs CBC & BMP: 07/29/17 07:07 07/29/17 07:07 Lab Results: I have reviewed the past 24 hour labs
[2017-08-01] MEDS ORDERED: BISACODYL 5 MG TABLET PO PRN (09:47)
[2017-08-01] MEDS: POLYETHYLENE GLYCOL POWDER 17 GM PACK PO SCH (10:28)
--- NOTE | 2017-08-01 12:58 | Cardiology Progress Note ---
Assessment and Plan - Time spent with patient Time spent with patient: Less than 30 minutes (1) Epigastric pain Status: Acute Assessment and plan: See plan of care listed below. Current Visit: No (2) Hypertension Status: Chronic Assessment and plan: See plan of care listed below. Current Visit: Yes (3) GERD (gastroesophageal reflux disease) Status: Chronic Assessment and plan: See plan of care listed below. Current Visit: No (4) History of gastric ulcer Status: Chronic Assessment and plan: See plan of care listed below. Current Visit: Yes (5) Dysphagia Status: Acute Assessment and plan: See plan of care listed below. Current Visit: Yes Cardiology - PN: Subj Interval history: Ingot Stripper: seen in the remote past by Dr. Galloway SUMMARY: Ms. Croft is a 71 y/o BF who was transferred to our facility from [facility] for further evaluation of the abdominal pain, dysphagia, and vomiting. She has a history of GERD, gastric ulcers, hypertension, chronic back pain. We are consulted to see her due to chest pain/epigastric pain. She ruled out for ND with unremarkable cardiac biomarkers and EKGs. Echocardiogram revealed EF 50-55%, mild LVH with mild diastolic dysfuntion, mildly enlarged LA , mild MR, trace to mild AI, and mild TR. Her pain that she has described sounds noncardiac in nature but she does mention easy fatigability and dyspnea on exertion of the past couple weeks. During the hospital stay, she lost IV access and required placement of a right IJ central line by IR. 2016: EGD was performed 07/31/17 which revealed distal esophageal stricture secondary to GERD, now s/p bougie dilation. She was also noted to have a small hiatal hernia. She continues to have complaints of abdominal pain but reports her nausea is improved. Her vital signs have been stable. At this time, she is stable from a cardiac standpoint and we have nothing further to add. We will sign off. Please call us if new cardiac issues arise or if we can be of further assistance. We will have her follow up in 3-[address] Galloway. ASSESSMENT/PLAN: 1. EPIGASTRIC PAIN - Patient's pain is noncardiac in nature. She ruled out for ND and is planned for EGD. In the future, she would likely benefit from risk stratification with nuclear stress testing due to her dyspnea on exertion. It's possible this could be done as an outpatient. Will further discuss with Dr. Galloway and await additional recommendations. 2. HYPERTENSION - Currently well controlled. Continue current plan of care. Will monitor and adjust accordingly. 3. HISTORY OF GERD - She has been placed on PPI IV BID. GI is following. 4. HISTORY OF GASTRIC ULCERS - She has been placed on PPI IV BID. GI is following. 5. DYSPHAGIA - Slowly improving. S/P EGD with dilation. Exam (Progress Note) - Constitutional Vitals: Period Temp Pulse Resp BP Sys/Argueta Pulse Ox Last 24 Hr 97.2 F-98.8 F 53-64 16-22 106-137/49-81 95-100 Exam: General appearance: Appears well. Pleasant and cooperative. Overweight, no acute distress. Head exam: Present: normal inspection, normocephalic, atraumatic. Absent: hematoma, laceration Eye exam: Present: EOMI. Absent: conjunctival injection, nystagmus, periorbital swelling, scleral icterus, laceration to eyelids, jaundice Pupils: Present: PERRL. Absent: constricted, dilated, fixed, irregular, unequal ENT exam: Present: normal exam, normal external ear exam, mucous membranes moist. Neck exam: Present: normal inspection, midline trachea. Absent: masses, lymphadenopathy, tenderness, thyromegaly, carotid bruit Respiratory exam: Present: clear to auscultation bilaterally. Absent: accessory muscle use, chest wall tenderness, rales, rhonchi, wheezing. Cardiovascular exam: Present: regular rate and rhythm. Absent: gallop, JVD, rubs, murmur GI/Abdominal exam: Present: normal bowel sounds, soft, tenderness upon palpation of RUQ and LUQ. Absent: distended, firm, hernia, mass. Extremities exam: Present: Normal Gait, No Clubbing, No Cyanosis, Upper Extr. Pulses 2+, Lower Extr. Pulses 2+, No edema. Capillary refill less than 3 seconds. Musculoskeletal: Present: No Fluid Collection, No Pain, Normal Range of Motion Back exam: Present: normal inspection. Absent: muscle spasm, vertebral tenderness Neurological exam: Present: awake, alert, oriented X3, Moves all extremities well without hemiparesis or paralysis. Grossly intact without resting or essential tremor Psychiatric exam: Present: normal affect, normal mood Skin exam: Present: normal color, warm, dry, intact. Absent: cyanosis, diaphoretic, rash, urticaria Result/EKG - Labs CBC & BMP: 07/29/17 07:07 07/29/17 07:07
--- NOTE | 2017-08-01 16:08 | Hospitalist Progress Note ---
Hospitalist: Subjective Interval history: 71-year-old female admitted with dysphagia and abdominal pain. He reports dysphagia is better but she still has abdominal pain generally feeling not well , though she is unable to provide any specifics. Exam - Constitutional Vitals: Period Temp Pulse Resp BP Sys/Argueta Pulse Ox Last 24 Hr 97.2 F-98.8 F 54-64 18-22 106-135/49-81 95-98 Exam: General: [No Acute Distress] HEENT: [Normocephalic, atraumatic, Extra ocular movements intact] Neck: [Supple, No JVD] Chest: [Clear to auscultation B/L] CV: [S1 + S2 audible without murmur, gallop or rub] Abd: [soft, mid epigastric tenderness, Non-distended, BS +] Ext: [No edema] Skin: [No purpura, bruising or rash] Rheumatologic: [No Joint deformities] Neurologic: [Strength 5/5 all extremities, no gross sensory deficits] Results - Labs CBC & BMP: 07/29/17 07:07 07/29/17 07:07 - Impressions Assessment and Plan: Esophageal dysphagia due to distal esophageal stricture Status: Acute Current Visit: Yes Patient status post EGD 07/31 with dilation. Diet advance to solids 08/01. Due to persistent abdominal pain will order a CT scan of the abdomen and pelvis Pancreatitis, chronic Status: Acute Assessment and plan: She still has abdominal pain, continue as needed pain meds Current Visit: Yes Essential hypertension Status: Chronic Assessment and plan: Controlled Current Visit: Yes
--- NOTE | 2017-08-01 17:29 | CT Report ---
CT abdomen pelvis w con Indication: Persistent right abdominal pain Comparison: Prior CT abdomen pelvis 11/13/2016. Technique: CT of the abdomen and pelvis was performed following administration of intravenous contrast. Coronal and sagittal reformatted images were additionally created and submitted for review. The total DLP is 999 mGy*cm. Dose reduction: This CT exam was performed using one or more of the following dose reduction techniques: Automated exposure control, automated adjustment of the mA and/or KV according to patient size, or use of iterative reconstruction technique. Findings: Very minimal posterior basilar dependent atelectatic changes are noted bilaterally. Lung bases are otherwise clear. There is no pleural or pericardial effusion. ABDOMEN: Liver/Gallbladder: No abnormal enhancing lesions. Portal vein is patent. No biliary ductal dilatation or gallstones are visualized. Spleen: No acute findings. Pancreas: No acute findings. Adrenals: Within normal limits in appearance. Kidneys: Both kidneys demonstrate cysts, which are simple in appearance with no enhancement or septations. These appear similar in size as compared to the 2016 CT images. There is no hydronephrosis. Delayed images demonstrate excretion of contrast from both kidneys, as expected. Bowel/mesentery: Small bowel is nondilated. No free fluid/air within the abdomen. Appendix is not definitely identified. There are no secondary signs of acute appendicitis. There is no mesenteric adenopathy. Multifocal diverticular lesions are noted throughout the descending and sigmoid colon. There is no CT evidence of acute diverticulitis. Retroperitoneum: No evidence of aortic aneurysm or significant retroperitoneal adenopathy. PELVIS: No free fluid in the pelvis. Bladder is mildly distended but otherwise grossly unremarkable. There has been a prior hysterectomy . There is no adenopathy. BONES: No acute or suspicious osseous abnormalities are identified. Multilevel degenerative changes noted within the lower lumbar spine. Degenerative changes are moderate to advanced at L4-5 with disc space loss and facet arthropathy. In the bilateral flank/gluteal soft tissues, there are partially imaged soft tissue changes which are nonspecific but may be related to prior surgery/trauma. IMPRESSION: 1. No acute abnormality within the abdomen or pelvis to explain patient's symptoms. 2. Multiple bilateral simple appearing renal cysts. 3. Diverticulosis with no CT evidence of acute diverticulitis. 4. Gluteal region soft tissue changes which are partially imaged but may represent sequela of prior surgery or trauma. Correlate with history and focal tenderness. 08/01/2017 5:14 PM PROCEDURE INTERPRETED AT [facility] DEPARTMENT OF RADIOLOGY Final Report Signed by: Berry Craven
[2017-08-01] MEDS: DONEPEZIL 5 MG TABLET PO SCH (20:43)
[2017-08-01] MEDS: DOCUSATE SODIUM 100 MG CAPSULE PO SCH (20:43)
[2017-08-02] MEDS: oxyCODONE IR 5 MG TABLET PO PRN ×4 (00:28→20:41)
[2017-08-02] MEDS: DEXTROSE 5% NACL 0.9% 1,000 ML IV SCH ×2 (01:34→11:15)
[2017-08-02] MEDS: HYDROmorphone 2 MG/1 ML VIAL IV PRN ×2 (02:53→09:03)
[2017-08-02] MEDS: HEPARIN 5,000 UNIT/1 ML VIAL SUBCUT SCH ×2 (02:56→14:14)
[2017-08-02 06:47] LABS: Basophils % 0.4 % (0.0-0.8); Eosinophils # 0.5 10*3/uL (0.0-0.87); Hematocrit 29.1 VOL% (35.7-47.0); Hemoglobin 9.7 GM/DL (12.0-16.0); Immature Granulocytes % 0.2 %; Immature Granulocytes Absolute 0.01 #; Lymphocytes # 1.9 10*3/uL (1.4-4.0); Lymphocytes % 35.5 % (21.3-54.2); Mean Corpuscular HGB Conc 33.3 GM/DL (32-36); Mean Corpuscular Hemoglobin 34 PG (27-34); Mean Corpuscular Volume 102.5 FL (87-102); Mean Platelet Volume 11.6 FL (9.6-12.0); Monocytes # 0.6 10*3/uL (0.11-0.8); Monocytes % 10.5 % (1.7-12.7); Neutrophils # 2.4 10*3/uL (1.4-7.4); Neutrophils % 44.4 % (38.7-73.9); Platelet Count 253 T/CUMM (130-400); Red Blood Count 2.84 MC/CUMM (3.8-5.5); Red Cell Distribution Width 13.8 % (9.3-17.3); White Blood Count 5.3 T/CUMM (4-12)
[2017-08-02 07:21] LABS: Calcium 8.7 MG/DL (8.5-10.1); Osmolality,Calculated 282.1 MOS/KG (273-304); Potassium 3.8 MMOL/L (3.5-5.1)
[2017-08-02] MEDS: PANTOPRAZOLE 40 MG VIAL IV SCH ×2 (09:02→20:43)
[2017-08-02] MEDS: DOCUSATE SODIUM 100 MG CAPSULE PO SCH ×2 (09:02→20:40)
[2017-08-02] MEDS: clonazePAM 0.5 MG TABLET PO SCH ×2 (09:03→20:40)
[2017-08-02] MEDS: POLYETHYLENE GLYCOL POWDER 17 GM PACK PO SCH (09:03)
[2017-08-02] MEDS: GABAPENTIN 300 MG CAPSULE PO SCH ×3 (09:03→20:39)
[2017-08-02] MEDS: amLODIPine 10 MG TABLET PO SCH (09:03)
[2017-08-02] MEDS: ONDANSETRON 4 MG/2 ML VIAL IV PRN ×2 (10:05→14:15)
[2017-08-02] MEDS ORDERED: DEXTROSE 5% NACL 0.9% 1,000 ML IV SCH (16:00)
--- NOTE | 2017-08-02 16:10 | Hospitalist Progress Note ---
Hospitalist: Subjective Interval history: 71-year-old female admitted with dysphagia and abdominal pain. He reports dysphagia is better but she still has abdominal pain generally feeling not well , though she is unable to provide any specifics. Exam - Constitutional Vitals: Period Temp Pulse Resp BP Sys/Argueta Pulse Ox Last 24 Hr 98.8 F-99.4 F 52-66 16-20 99-145/53-63 93-100 Exam: General: [No Acute Distress] HEENT: [Normocephalic, atraumatic, Extra ocular movements intact] Neck: [Supple, No JVD] Chest: [Clear to auscultation B/L] CV: [S1 + S2 audible without murmur, gallop or rub] Abd: [soft, mid epigastric tenderness, Non-distended, BS +] Ext: [No edema] Skin: [No purpura, bruising or rash] Rheumatologic: [No Joint deformities] Neurologic: [Strength 5/5 all extremities, no gross sensory deficits] Results - Labs CBC & BMP: 08/02/17 05:42 08/02/17 05:42 - Impressions Assessment and Plan: Esophageal dysphagia due to distal esophageal stricture Status: Acute Current Visit: Yes Patient status post EGD 07/31 with dilation. Diet advance to solids 08/01. CT scan of the abdomen pelvis was grossly unremarkable. Abdominal pain is better but she still has nausea, will put her on low-dose scheduled Phenergan p.o. Pancreatitis, chronic Status: Acute Assessment and plan: She still has abdominal pain, continue as needed pain meds Current Visit: Yes Essential hypertension Status: Chronic Assessment and plan: Controlled Current Visit:
[2017-08-02] MEDS: PROMETHAZINE 25 MG TABLET PO SCH ×2 (16:34→23:15)
--- NOTE | 2017-08-02 18:23 | Discharge Summary ---
Hospital Course - Hospital Course Hospital Course: 71-year-old female admitted by the hospitalist service on 07/29/2017 with chronic pancreatitis and postprandial vomiting. GI was consulted and Dr. Rust took her for EGD on 07/31/2017 where he performed a distal esophageal stricture dilation. Patient is now tolerating a diet without any nausea or vomiting. Cardiology was consulted as well and they rolled her noncardiac chest pain and signed off. Patient still has some minor abdominal pain so CT of the abdomen and pelvis was done on 08/01/2017 that showed no acute process and renal ultrasound was negative. Patient is reached maximal hospital benefit and is ready for discharge. She still has some intermittent nausea so she will be discharged home with some Protonix and p.o. Phenergan. Complete discharge instructions were given. Care coordination, chart review, and completed discharge paperwork took approximately 32 minutes. - Time spent with patient Time with patient DS: Greater than 30 minutes Diagnosis - Discharge Diagnosis (1) GERD (gastroesophageal reflux disease) Status: Chronic (2) Odynophagia Status: Resolved (3) Abdominal pain Status: Resolved (4) Esophageal stricture Status: Resolved Specialty Discharge - Follow Up or Referrals Follow up with: your, PCP [Other] - 1 Week Discharge Plan - Discharge Data Disposition: Disch To Home/Self Care Condition at Discharge: Stable Discharge Diet: advance to your usual diet Activity: resume usual activities as tolerated Contact your physician if you experience:: Nausea/Vomiting - Discharge Medications New Pantoprazole Tab [Protonix Tab] 40 mg PO BID #60 tablet Promethazine Tab [Phenergan Tab] 12.5 mg PO Q6H #30 tablet Continue clonazePAM [Clonazepam] 1 mg PO BID Donepezil [Aricept] 5 mg PO BEDTIME Amlodipine Besylate 10 mg DAILY HYDROcodone/ACETAMIN 10-325 [[place] 10-325] 1 tablet PO Q4-6H PRN #20 tablet PRN Reason: Pain Severe (8-10) Gabapentin Cap/Tab [Neurontin Cap/Tab] 300 mg PO TID traZODone [Desyrel] 50 mg PO DAILY Discontinued Famotidine Tab [Pepcid Tab] 20 mg PO BID - Follow Up or Referral Follow Up: your, PCP [Other] - 1 Week - Forms/Instructions Exam - Constitutional Vitals: Period Temp Pulse Resp BP Sys/Argueta Pulse Ox Last 24 Hr 98.4 F-99.4 F 52-66 16-20 99-145/49-63 93-100 Discharge Results Labs on day of discharge: Labs from last 24 hours 08/02/17 08/02/17 05:42 05:42 WBC 5.3 RBC 2.84 L Hgb 9.7 L Hct 29.1 L MCV 102.5 H MCH 34 MCHC 33.3 RDW 13.8 Plt Count 253 MPV 11.6 Neut % (Auto) 44.4 Lymph % (Auto) 35.5 [place] % (Auto) 10.5 Eos % (Auto) 9.0 Baso % (Auto) 0.4 Neut # (Auto) 2.4 Lymph # (Auto) 1.9 [place] # (Auto) 0.6 Eos # (Auto) 0.5 Baso # (Auto) 0.0 Immature Gran % 0.2 Nucleated RBC % 0.0 Immature Gran # 0.01 Nucleated RBCs # 0.00 Immature Plt Fraction 0.0 Sodium 142 Potassium 3.8 Chloride 106 Carbon Dioxide 29 Anion Gap 10.8 BUN 6 L Creatinine 0.90 GFR Calculation 72 BUN/Creatinine Ratio 6.00 Glucose 129 H Calculated Osmolality 282.1 Calcium 8.7 DS: Provider Date of admission: 07/29/17 02:39 Primary care physician: Gustavo Lancaster Attending physician on admission: Jamel Ingram MD Consults: 07/29/17 02:39 Consult to Physician [CONS] Routine Comment: epigastric pain Consulting Provider: Leroy Rust Person Notified: Dr. Little Date Notified: 07/29/17 Time Notified: 10:00 07/29/17 04:10 Consult to Dietitian [CONS] Routine Reason for Dietitian: Other Consult Comment: recent weight loss over past year without trying Consult to Pastoral Services [CONS] Routine Comment: Pastoral Screen: Request Associate Professor Of Psychology Visit Pastoral Screen Source of Request: Patient 07/29/17 13:22 Consult to Physician [CONS] Routine Comment: Evaluation for chest pain Consulting Provider: Jet Meneses Person Notified: Dr. Meneses Date Notified: 07/29/17 Time Notified: 14:14 Discharging clinician: CRISTINE Dwyer Expected date of discharge: 08/02/17
[2017-08-02] MEDS: DONEPEZIL 5 MG TABLET PO SCH (20:40)
[2017-08-03] MEDS: oxyCODONE IR 5 MG TABLET PO PRN ×2 (01:28→07:16)
[2017-08-03] MEDS: HEPARIN 5,000 UNIT/1 ML VIAL SUBCUT SCH (04:04)
[2017-08-03] MEDS: PROMETHAZINE 25 MG TABLET PO SCH ×2 (04:07→09:52)
[2017-08-03] MEDS: PANTOPRAZOLE 40 MG VIAL IV SCH (08:53)
[2017-08-03] MEDS: DOCUSATE SODIUM 100 MG CAPSULE PO SCH (09:51)
[2017-08-03] MEDS: clonazePAM 0.5 MG TABLET PO SCH (09:51)
[2017-08-03] MEDS: amLODIPine 10 MG TABLET PO SCH (09:52)
[2017-08-03] MEDS: GABAPENTIN 300 MG CAPSULE PO SCH (09:52)
[2017-08-03] MEDS: POLYETHYLENE GLYCOL POWDER 17 GM PACK PO SCH (09:52)
[2017-08-03 10:47] VITALS: BP 124/50
== END 2017-08-03 13:54 | disposition home or self-care (01) | DRG 392 ==
LOC: EDBD → EDUNIT# → N.ED 01:01 → SUATTDRO 02:39 → N.EDINP 02:39 → N.5E 03:06
PROVIDERS: ADMIT Internal Medicine Infectious Disease; ATTEND Hospitalist

== ENCOUNTER 2017-08-19 23:34 | Inpatient (IN) ==
[2017-08-20] MEDS ORDERED: ONDANSETRON 4 MG/2 ML VIAL IV STA (00:09)
[2017-08-20] MEDS ORDERED: ALUM/MAG/SIMETH/LIDO VISC 1:1 30 ML BOTTLE PO STA (00:09)
[2017-08-20] MEDS ORDERED: PANTOPRAZOLE 40 MG VIAL IV STA (00:09)
[2017-08-20] MEDS ORDERED: SODIUM CHLORIDE 0.9% 500 ML IV STA (00:09)
--- NOTE | 2017-08-20 00:32 | Emergency Department Note ---
Harris Valdez Gwan, am scribing for, and in the presence of, Gómez Escobedo MD 00 :22. Gregg Valdez Charles R, MD, personally performed the services described in this documentation, ascribed by Rebecca Iglesias in my presence, and it is both accurate and complete . Arrival - Arrival ED Nursing Triage Note: pt brought in via ems with c/o abd pain. burning up into throat. pt states that pain has been going on for approx 3 weeks. pt had scope, esophagus stretched 3 weeks ago. pt was seen at [facility] last night and was told to come to [facility]. pt has hx anxiety, gerd, htn Mode of Arrival: Stretcher Limitations: No Limitations Source: Patient, Old Records Reviewed, RN Notes Reviewed - History of Present Illness Onset (ago): week(s) Consistency: constant Severity: moderate Date of Last Menstrual Period: hysterectomy <Gómez Escobedo - Last Filed: 08/20/17 01:44> <Dandre Hamlin - Last Filed: 08/20/17 02:38> - Arrival Chief Complaint: Abdominal / Flank Pain Time Seen by Provider: 08/20/17 00:03 - History of Present Illness HPI Narrative: Patient is a 71 y/o female, with a hx of anxiety and GERD, who presents to the ED with a c/o lower abd pain with an onset 3 weeks ago. Patient was last seen in ED 07/29/2017 for similar reason. She was then seen 08/01/2017 by GI physician and was hospitalized. At that time pt had scope and esophageal stretch performed with negative results. During exam, pt stated that her abd pain radiates to her back and for the past 3 days her sxs have worsened to include the inability to keep food down and the burning sensation s/p vomiting. Patient denies any constipation but confirmed that she has a PMHx of acid reflux. Nurses noted that pt was seen at [facility] ED last night and was prompted to report to [place] ED if problems persist. While in ED, pt did not appear to be in any distress but express discomfort with direct palpation to lower abd. No other problems/complaints reported in ED. (Rebecca Iglesias) Patient is a 71 y/o female, with a hx of anxiety and GERD, who presents to the ED with a c/o lower abd pain with an onset 3 weeks ago. Patient was last seen in ED 07/29/2017 for similar reason. She was then seen 08/01/2017 by GI physician and was hospitalized. At that time pt had scope and esophageal stretch performed with negative results. During exam, pt stated that her abd pain radiates to her back and for the past 3 days her sxs have worsened to include the inability to keep food down and the burning sensation s/p vomiting. Patient denies any constipation but confirmed that she has a PMHx of acid reflux. Nurses noted that pt was seen at [place] ED last night and was prompted to report to [place] ED if problems persist. While in ED, pt did not appear to be in any distress but express discomfort with direct palpation to lower abd. No other problems/complaints reported in ED. (Gómez Escobedo) Allergies/Adverse Reactions: Allergies Allergy/AdvReac Type Severity Reaction Status Date / Time Latex, Natural Rubber Allergy Intermediate RASH Verified 07/29/17 01:10 Zolpidem [From Ambien] Allergy Intermediate RASH Verified 07/29/17 01:10 acetaminophen Allergy ANAPHYLAXIS Verified 04/23/15 20:08 [From Darvocet-N] nalbuphine [From Nubain] Allergy ANAPHYLAXIS Verified 04/23/15 20:08 propoxyphene Allergy ANAPHYLAXIS Verified 04/23/15 20:08 [From Darvocet-N] Home Medications: Home Medications Medication Instructions Recorded Confirmed Type Amlodipine Besylate 10 mg DAILY 04/23/15 07/29/17 History Donepezil [Aricept] 5 mg PO BEDTIME 04/23/15 07/29/17 History clonazePAM [Clonazepam] 1 mg PO BID 04/23/15 07/29/17 History HYDROcodone/ACETAMIN 10-325 [[place] 1 tablet PO Q4-6H PRN #20 tablet 04/25/1503/11 Rx 10-325] Gabapentin Cap/Tab [Neurontin 300 mg PO TID 07/29/17 07/29/17 History Cap/Tab] traZODone [Desyrel] 50 mg PO DAILY 07/29/17 07/29/17 History Pantoprazole Tab [Protonix Tab] 40 mg PO BID #60 tablet 08/02/17 Rx Promethazine Tab [Phenergan Tab] 12.5 mg PO Q6H #30 tablet 08/02/17 Rx Review of System - Review of System 12 point system: reviewed and no additional remarkable complaints except as stated - Review of System Gastrointestinal: Present: as per HPI, abdominal pain (lower abd ), vomiting Musculoskeletal: Present: as per HPI, back pain (abd pain radiates to back ) <Gómez Escobedo R - Last Filed: 08/20/17 01:44> Medical,Surgical,& Family Hx - Medical History Cardio: No history of: CAD Neurology: History of: Dementia No history of: Seizures Respiratory: History of: Pneumonia Renal: History of: Renal Problems (A chronic renal insufficiency) Genitourinary: History of: Kidney Stones Gastrointestinal: History of: Diverticulitis/ Diverticulosis, GERD, Gastrointestinal Bleed, Pancreatitis (calcific changes status post ERCP on with sphincterotomy ), GI Problems (ulcers, mild esophagitis, jejunal AVMs.) Musculoskeletal: History of: Back/Neck Problems - Surgical History Cardiac Surgeries: Sugical HX of: Cardiac Catheterization (2012) Thoracic Surgeries: Surgical HX of;: Lithotripsy (2012) HEENT Surgeries: Surgical HX of: Tonsilectomy & 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) Abdominal Surgeries: Surgical HX of: Cholecystectomy, Colonoscopy (2011), EGD ( 2011) Reproductive Surgeries: Surgical HX of;: Hysterectomy - Family History Family History: Reports;: Family Cancer (lymphoma), Family Heart Disease (mother ) Denies;: Family Anesthesia Reaction, Family Diabetes, Family Hypertension, Family Psychiatric Problems, Family Stroke - Social History Smoking Status: Never smoker Frequency of Alcohol Use: None Type of Drug Use: None <Gómez Escobedo R - Last Filed: 08/20/17 01:44> Exam - General General appearance: alert, in no apparent distress, other (Patient has a fecal smell to breathe.) - Head Head exam: Present: atraumatic, normocephalic - Eye Eye exam: Present: normal appearance, PERRL, EOMI - ENT ENT exam: Present: normal oropharynx, mucous membranes moist, TM's normal bilaterally, normal external ear exam - Neck Neck exam: Present: full ROM, trachea midline. Absent: tenderness - Chest Chest inspection: Present: symmetric chest wall rise. Absent: tenderness - Respiratory Respiratory exam: Present: normal lung sounds bilaterally. Absent: respiratory distress - Cardiovascular Cardiovascular exam: Present: regular rate, normal rhythm, normal heart sounds. Absent: murmur - Abdominal Exam Abdominal exam: Present: soft, tenderness (Epigastric tenderness), other ( decreased bowel sounds ). Absent: distention - Extremities Exam Extremities exam: Present: full ROM. Absent: tenderness - Back Exam Back exam: Present: full ROM. Absent: tenderness - Neurological Exam Neurological exam: Present: alert, oriented X3, CN II-XII intact. Absent: motor sensory deficit - Psychiatric Psychiatric exam: Present: normal affect, normal mood - Skin Skin exam: Present: warm, dry, intact, normal color <Gómez Escobedo - Last Filed: 08/20/17 01:44> Vital Signs: Vital Signs Temperature 98 F 08/19/17 23:34 Pulse Rate 68 08/19/17 23:34 Respiratory Rate 18 08/19/17 23:34 Blood Pressure 127/82 08/19/17 23:34 O2 Sat by Pulse Oximetry 100 08/19/17 23:34 Course - Consultations Time: 01:21 Time: 01:44 <Gómez Escobedo - Last Filed: 08/20/17 01:44> <Dandre Hamlin - Last Filed: 08/20/17 02:38> - Consultations Consultation #1: Signed out to Dr. Hamlin ER doctor assuming care of this patient labs are pending (Gómez Escobedo) Consultation #2: Patient has epigastric pain abdominal pain. She also has a slightly elevated troponin 0.075 looking her past troponins never been elevated before. Spoke to hospitalist who will be admit this patient for further workup. Dr. Hamlin has assumed care of this patient he will place a central line. (Gómez Escobedo) Procedures - Central Line Placement Right IJ Consent Obtained: verbal consent Time Out Performed: Yes Patient Placed on Monitor/Pulse Ox: Yes MD Prep: mask, gown, gloves Central Line Prep: Chlorhexidine scrub Local Anesthetic: lidocaine 1% Amount of anesthesia used (mL): 10 Ultrasound Used for Placement: Yes Central Line Lumen Inserted: triple Post Procedure: sutured in place, good blood return, all ports aspirated, flushed, capped, sterile dressing applied Post Procedure X-Ray: other (Pending) Patient Tolerated Procedure: well Complications: none <Dandre Hamlin - Last Filed: 08/20/17 02:38> Results - Labs CBC & BMP: 08/20/17 00:52 08/20/17 01:00 <Gómez Escobedo - Last Filed: 08/20/17 01:44> - Labs CBC & BMP: 08/20/17 00:52 08/20/17 01:00 <Dandre Hamlin - Last Filed: 08/20/17 02:38> Disposition Case discussed with: patient Time of Disposition: 01:45 <Gómez Escobedo - Last Filed: 08/20/17 01:44> <Dandre Hamlin - Last Filed: 08/20/17 02:38> Clinical Impression: GERD (gastroesophageal reflux disease), Epigastric pain, Gastritis, Elevated troponin, Atypical chest pain, NSAID induced gastritis, Postprandial vomiting Disposition: Still a Patient
--- NOTE | 2017-08-20 00:45 | EKG Report ---
Stationary ECG Study [facility] ER Test Date: 08/20/2017 12:44:15 AM Pat Name: SANJEEV EAGLE Department: Room: Gender: F [employer]: : 1945 Requested by: Gómez Husain Order Number: [id number] Reading MD: LIZETTE TARANGO Intervals [place] Rate: 61 P: 68 PA: 149 QRS: 52 QRSD: 90 T: -50 QT: 312 QTc: 315 Interpretive Statements SINUS RHYTHM MODERATE T-WAVE ABNORMALITY Electronically Signed On 08-23-17 06:54:03 CDT by LIZETTE TARANGO [email or web address]
[2017-08-20] MEDS ORDERED: ALUM/MAG/SIMETH/LIDO VISC 1:1 30 ML BOTTLE PO ONE (01:04)
[2017-08-20 01:29] LABS: Albumin 3.8 G/DL (3.4-5.0); Bilirubin,Total 0.7 MG/DL (0.2-1.0); Magnesium 1.8 MG/DL (1.8-2.4); Osmolality,Calculated 281.1 MOS/KG (273-304); Potassium 4.2 MMOL/L (3.5-5.1); Total Protein 7.6 G/DL (6.4-8.3)
[2017-08-20 01:31] LABS: Troponin I Only 0.075 NG/ML (0.00-0.045)
[2017-08-20 01:32] LABS: Basophils % 0.3 % (0.0-0.8); Eosinophils # 0.1 10*3/uL (0.0-0.87); Eosinophils % 1.2 % (0.00-10.9); Hematocrit 35.3 VOL% (35.7-47.0); Hemoglobin 12.3 GM/DL (12.0-16.0); Immature Granulocytes % 0.3 %; Immature Granulocytes Absolute 0.02 #; Lymphocytes # 2.5 10*3/uL (1.4-4.0); Lymphocytes % 37.5 % (21.3-54.2); Mean Corpuscular HGB Conc 34.8 GM/DL (32-36); Mean Corpuscular Hemoglobin 34 PG (27-34); Mean Corpuscular Volume 97.2 FL (87-102); Mean Platelet Volume 10.3 FL (9.6-12.0); Monocytes # 0.5 10*3/uL (0.11-0.8); Monocytes % 7.6 % (1.7-12.7); Neutrophils # 3.5 10*3/uL (1.4-7.4); Neutrophils % 53.1 % (38.7-73.9); Platelet Count 355 T/CUMM (130-400); Red Blood Count 3.63 MC/CUMM (3.8-5.5); Red Cell Distribution Width 13.7 % (9.3-17.3); White Blood Count 6.6 T/CUMM (4-12)
[2017-08-20 01:35] LABS: Apearance,Urine Slightly Hazy (Clear); Bilirubin,Urine Negative (Negative); Blood, Urine Negative (Negative); Calcium Oxalate Crystals,Urine Occasional /HPF (Few); Glucose,Urine (UA) Negative (Negative); Hyaline Casts,Urine 3 /LPF (0-3); Ketones,Urine Negative (Negative); Mucus,Urine Moderate /LPF (Occasional); Nitrite,Urine Negative (Negative); Protein,Urine Negative; RBC,Urine 3 /HPF (0-4); Squamous Epithelial Cell,Urine Occasional /HPF (0-10); Urine Color Yellow (Yellow); Urine Specific Gravity 1.016 (1.001-1.035); Urine Urobilinogen < 2.0 EU/DL (0.2-1.0); WBC,Urine 10 /HPF (0-6)
[2017-08-20] MEDS ORDERED: ENOXAPARIN 100 MG/ML SYRINGE SUBCUT STA (01:45)
[2017-08-20 01:49] LABS: Lactic Acid 0.9 MMOL/L (0.4-2.0)
--- NOTE | 2017-08-20 02:06 | EKG Report ---
Stationary ECG Study [facility] ER Test Date: 08/20/2017 1:48:14 AM Pat Name: SANJEEV EAGLE Department: Room: Gender: F It Consulting Director: : 1945 Requested by: Dandre Hamlin Order Number: [id number] Reading MD: LIZETTE TARANGO Intervals [place] Rate: 61 P: 69 VT: 143 QRS: 36 QRSD: 97 T: 34 QT: 372 QTc: 374 Interpretive Statements SINUS RHYTHM INFERIOR ST-T ABNORMALITY Electronically Signed On 08-23-17 06:56:39 CDT by LIZETTE TARANGO [email or web address]
[2017-08-20] MEDS ORDERED: ONDANSETRON 4 MG/2 ML VIAL ONE (02:44)
[2017-08-20] MEDS ORDERED: PANTOPRAZOLE 40 MG VIAL IV ONE (02:44)
[2017-08-20] MEDS ORDERED: ENOXAPARIN 80 MG/0.8 ML SYRINGE SUBCUT ONE (02:44)
--- NOTE | 2017-08-20 02:45 | Hospitalist History & Physical ---
Assessment and Plan - Time spent with patient Time spent with patient: Less than 30 minutes (1) Epigastric pain Status: Acute Assessment and plan: We will keep n.p.o. for now Pending H pylori We will recheck lipase and bilirubin in the morning Consult GI We will continue PPIs Current Visit: Yes (2) Elevated troponin Status: Acute Assessment and plan: We will trend Current Visit: Yes (3) Urinary tract infection Status: Acute Assessment and plan: We will start Macrobid Current Visit: Yes History of Present Illness Chief complaint: epigastric pain History of present illness: Called to the ER for Ms. Croft who is a 71 year old female that presented to the ER tonight complaining of epigastric pain that started earlier this month. She was admitted here and was found to have esophageal strictures. She was dilated and discharged home. She states she felt good for three days and then the pain returned and has continued to get worse. She went to [facility] last night and they told her that it was her GERD but if it returned to come back to [facility]. She received a GI cocktail, Protonix, and Zofran in the ER but her symptoms did not improve. Blood work was negative except for troponin 0.075. She was slightly elevated on her admission earlier this month, but trended down. She states she has had vomiting right after she eats for the last three days and has not been able to keep anything down. She has a history of dementia, diverticulitis, GERD, pancreatitis, gastric ulcers, mild esophagitis, jejunal AVMs, kidney stones, neuropathy, anxiety, cholecystectomy, lithotripsy, tonsillectomy, left knee replacement, HTN, appendectomy, and gallstones. Home Medications Medication Instructions Recorded Confirmed Type Amlodipine Besylate 10 mg DAILY 04/23/15 07/29/17 History Donepezil [Aricept] 5 mg PO BEDTIME 04/23/15 07/29/17 History clonazePAM [Clonazepam] 1 mg PO BID 04/23/15 07/29/17 History HYDROcodone/ACETAMIN 10-325 [[place] 1 tablet PO Q4-6H PRN #20 tablet 04/25/1503/11 Rx 10-325] Gabapentin Cap/Tab [Neurontin 300 mg PO TID 07/29/17 07/29/17 History Cap/Tab] traZODone [Desyrel] 50 mg PO DAILY 07/29/17 07/29/17 History Pantoprazole Tab [Protonix Tab] 40 mg PO BID #60 tablet 08/02/17 Rx Promethazine Tab [Phenergan Tab] 12.5 mg PO Q6H #30 tablet 08/02/17 Rx Allergies Allergy/AdvReac Type Severity Reaction Status Date / Time Latex, Natural Rubber Allergy Intermediate RASH Verified 07/29/17 01:10 Zolpidem [From Ambien] Allergy Intermediate RASH Verified 07/29/17 01:10 acetaminophen Allergy ANAPHYLAXIS Verified 04/23/15 20:08 [From Darvocet-N] nalbuphine [From Nubain] Allergy ANAPHYLAXIS Verified 04/23/15 20:08 propoxyphene Allergy ANAPHYLAXIS Verified 04/23/15 20:08 [From Darvocet-N] Medical,Surgical,& Family Hx - Medical History Cardio: History of: Hypertension No history of: CAD, [place], Pacemaker Neurology: History of: Dementia No history of: Cerebrovascular Accident, Seizures Endocrine: No history of: Diabetes Mellitus (IDDM), Diabetes Mellitus (NIDDM), Dyslipidemia, Thyroid Disorder Respiratory: History of: Pneumonia No history of: Asthma, COPD Renal: History of: Renal Problems (A chronic renal insufficiency) Genitourinary: History of: Kidney Stones Gastrointestinal: History of: Diverticulitis/ Diverticulosis, GERD, Gastrointestinal Bleed, Pancreatitis (calcific changes status post ERCP on with sphincterotomy ), GI Problems (ulcers, mild esophagitis, jejunal AVMs.) No history of: Hepatitis Musculoskeletal: History of: Back/Neck Problems Hematology: No history of: Anemia - Surgical History Cardiac Surgeries: Sugical HX of: Cardiac Catheterization (2012) Thoracic Surgeries: Surgical HX of;: Lithotripsy (2012) HEENT Surgeries: Surgical HX of: Tonsilectomy & 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) Abdominal Surgeries: Surgical HX of: Cholecystectomy, Colonoscopy (2011), EGD ( 2011) Reproductive Surgeries: Surgical HX of;: Hysterectomy - Family History Family History: Reports;: Family Cancer (lymphoma), Family Heart Disease (mother ) Denies;: Family Anesthesia Reaction, Family Diabetes, Family Hypertension, Family Psychiatric Problems, Family Stroke - Social History Smoking Status: Never smoker Have you smoked in the last 12 months: No Frequency of Alcohol Use: None Type of Drug Use: None Marital Status: Single Lives With:: Children Functional capacity: independent ambulation - Constitutional Constitutional: Present: fever(s). Absent: anorexia, chills, night sweats - EENT Nose, mouth and throat: Absent: dysphagia, throat swelling - Cardiovascular Cardiovascular: Absent: chest pain at rest, chest pain with activity, dyspnea, dyspnea on exertion, edema, orthopnea, palpitations - Respiratory Respiratory: Absent: cough - Gastrointestinal Gastrointestinal: Present: abdominal pain, diarrhea, dyspepsia, nausea, vomiting. Absent: change in bowel habits, constipation, dysphagia Exam - Constitutional Vitals: Period Temp Pulse Resp BP Sys/Argueta Pulse Ox Last 24 Hr 98 F-98 F 68-68 18-18 127-127/82-82 100 General appearance: normal weight, no acute distress - Head Head exam: Present: normal inspection, normocephalic - Eye Eye exam: Present: EOMI Pupils: Present: YESIKA - ENT ENT exam: Present: normal exam - Neck Neck exam: Present: normal inspection - Respiratory Respiratory exam: Present: clear to auscultation bilaterally. Absent: accessory muscle use (Respirations even and unlabored. Symmetrical rise and fall.) - Cardiovascular Cardiovascular exam: Present: regular rate and rhythm. Absent: diastolic murmur , systolic murmur - GI/Abdominal GI/Abdominal exam: Present: normal bowel sounds, guarding, tenderness (to all quadrants but very tender over epigastric area.), soft. Absent: firm - Extremities Exam Extremities exam: Present: normal inspection, normal capillary refill, full ROM - Back Exam Back exam: Present: normal inspection - Neurological Exam Neurological exam: Present: alert, oriented X3 (Makes good eye contact. Answers all questions appropriately.) - Psychiatric Psychiatric exam: Present: normal affect, normal mood - Skin Skin exam: Present: normal color, warm, dry, intact Results - Labs CBC & BMP: 08/20/17 00:52 08/20/17 01:00 Lab Results: I have reviewed the past 24 hour labs
[2017-08-20] MEDS ORDERED: ZALEPLON 5 MG CAPSULE PO PRN (03:47)
[2017-08-20] MEDS ORDERED: PROMETHAZINE 25 MG TABLET PO PRN (03:47)
[2017-08-20] MEDS ORDERED: ACETAMINOPHEN 325 MG TABLET PO PRN (03:47)
[2017-08-20] MEDS: NITROFURANTOIN MACRO/MONO 100 MG CAPSULE PO SCH ×2 (04:23→17:00)
--- NOTE | 2017-08-20 07:14 | XRay Report ---
History: Abdominal pain Date: 08/20/2017 Study: Flat and erect abdomen Comparison exam: July 31, 2017 There is no evidence of pneumoperitoneum. There are some nonspecific fluid levels in large and small bowel on the upright view. There is no dawna bowel obstruction or gross mass lesion. No gross radiopaque calculi are seen. There is moderate lumbar levoscoliosis. There is moderate to prominent degenerative disease throughout the lumbar spine. Impression: Nonspecific bowel gas pattern with occasional nonspecific air-fluid level. No dawna obstruction, gross mass lesion, or acute process otherwise compared to the previous study PROCEDURE INTERPRETED AT [facility] DEPARTMENT OF RADIOLOGY Final Report Signed by: Dr. Bryanna Rust
--- NOTE | 2017-08-20 07:17 | XRay Report ---
History: Abdominal pain Date: 08/20/2017 at 1:02 AM Study: Chest x-ray AP portable Comparison exam: November 14, 2016 There is stable cardiomegaly. The mediastinal contour is unchanged. The pulmonary vasculature is not engorged. There is no gross pleural effusion. There is some mild platelike subsegmental atelectasis or scar in the lung bases. There is no dawna pneumonia. The lungs are unchanged from the previous study. There is moderate thoracolumbar scoliosis and spondylosis. Impression: No acute process compared to the previous study. Stable cardiomegaly. Scarring in the lung bases PROCEDURE INTERPRETED AT [facility] DEPARTMENT OF RADIOLOGY Final Report Signed by: Dr. Bryanna Rust
--- NOTE | 2017-08-20 07:48 | XRay Report ---
History: Central line placement Date: 08/20/2017 at 2:39 AM Study: Chest x-ray AP portable Comparison exam: 08/20/2017 at 1:02 AM The right IJ central line is well-positioned with its tip over the atriocaval junction. There is no pneumothorax. There is stable cardiomegaly. The mediastinal contours are unchanged. The lungs remain generally clear. There is no pleural effusion. Osseous structures are similar. Impression: The central line is well-positioned. There is no pneumothorax. Otherwise unchanged PROCEDURE INTERPRETED AT [facility] DEPARTMENT OF RADIOLOGY Final Report Signed by: Dr. Bryanna Rust
[2017-08-20 07:50] LABS: Bilirubin,Total 0.6 MG/DL (0.2-1.0)
--- NOTE | 2017-08-20 08:56 | Gastrointestinal Consult Note ---
Assessment and Plan (1) Epigastric pain Status: Acute Assessment and plan: 08/20-admitted with history of dysphagia and esophageal stricture in the past with recent dilation 3 weeks ago now with continued dysphagia, inability to keep anything down with nausea vomiting. History of multiple dilations in the past. No coffee-ground or hematemesis reports. We will continue to monitor at this time and consider repeat EGD. Plan an addendum to followed by Dr. Rust. Current Visit: Yes History of Present Illness Chief complaint: Epigastric pain, dysphagia History of present illness: Ms. Croft is a 71 year old female who was admitted to the hospital last night with complaints of epigastric pain. Patient has a prior history of peptic ulcer disease, hypertension, dementia, GERD. Patient was discharged from our facility approximately 3 weeks ago after inpatient stay for complaints of dysphagia and epigastric abdominal pain. During that inpatient stay, she underwent EGD with findings of distal esophageal stricture with dilation as well as hiatal hernia. Patient has had multiple dilations in the past and she states has helped however she states approximately 1 week after discharge this time, epigastric pain and dysphagia returned. Patient states that when she eats , at times the food will not go down at other times she will have onset of pain in the epigastric region. She states that she has difficulty with her pills as well but denies trouble with liquids. Patient denies any pain with swallowing however does report early satiety. She also has an increasing GERD as well as dyspepsia recently. Patient denies any melena or hematochezia or changes in her bowel habit. She does state that she has at times episodes of nausea and vomiting after she eats as well as she has to regurgitate her food. She did state that prior to admission here she went to [facility] in which she was given a GI cocktail and sent home. She states that this did not help her pain. She was also noted to have a mildly elevated troponin level which is trending down at this time. She states at this point in time she is unable to keep anything down and has not eaten in several days due to this. She denies any fever, chills or recent weight loss associated with this. She denies any NSAID use. Home Medications Medication Instructions Recorded Confirmed Type Amlodipine Besylate 10 mg DAILY 04/23/15 07/29/17 History Donepezil [Aricept] 5 mg PO BEDTIME 04/23/15 07/29/17 History clonazePAM [Clonazepam] 1 mg PO BID 04/23/15 07/29/17 History HYDROcodone/ACETAMIN 10-325 [[place] 1 tablet PO Q4-6H PRN #20 tablet 04/25/1503/11 Rx 10-325] Gabapentin Cap/Tab [Neurontin 300 mg PO TID 07/29/17 07/29/17 History Cap/Tab] traZODone [Desyrel] 50 mg PO DAILY 07/29/17 07/29/17 History Pantoprazole Tab [Protonix Tab] 40 mg PO BID #60 tablet 08/02/17 Rx Promethazine Tab [Phenergan Tab] 12.5 mg PO Q6H #30 tablet 08/02/17 Rx Allergies Allergy/AdvReac Type Severity Reaction Status Date / Time Latex, Natural Rubber Allergy Intermediate RASH Verified 07/29/17 01:10 Zolpidem [From Ambien] Allergy Intermediate RASH Verified 07/29/17 01:10 acetaminophen Allergy ANAPHYLAXIS Verified 04/23/15 20:08 [From Darvocet-N] nalbuphine [From Nubain] Allergy ANAPHYLAXIS Verified 04/23/15 20:08 propoxyphene Allergy ANAPHYLAXIS Verified 04/23/15 20:08 [From Darvocet-N] Medical,Surgical,& Family Hx - Medical History Cardio: History of: Hypertension No history of: CAD, [place], Pacemaker Neurology: History of: Dementia No history of: Cerebrovascular Accident, Seizures Endocrine: No history of: Diabetes Mellitus (IDDM), Diabetes Mellitus (NIDDM), Dyslipidemia, Thyroid Disorder Respiratory: History of: Pneumonia No history of: Asthma, COPD Renal: History of: Renal Problems (A chronic renal insufficiency) Genitourinary: History of: Kidney Stones Gastrointestinal: History of: Diverticulitis/ Diverticulosis, GERD, Gastrointestinal Bleed, Pancreatitis (calcific changes status post ERCP on with sphincterotomy ), GI Problems (ulcers, mild esophagitis, jejunal AVMs.) No history of: Hepatitis Musculoskeletal: History of: Back/Neck Problems Hematology: No history of: Anemia - Surgical History Cardiac Surgeries: Sugical HX of: Cardiac Catheterization (2012) Thoracic Surgeries: Surgical HX of;: Lithotripsy (2012) HEENT Surgeries: Surgical HX of: Tonsilectomy & 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) Abdominal Surgeries: Surgical HX of: Cholecystectomy, Colonoscopy (2012), EGD ( 2012) Reproductive Surgeries: Surgical HX of;: Hysterectomy - Family History Family History: Reports;: Family Cancer (lymphoma), Family Heart Disease (mother ) Denies;: Family Anesthesia Reaction, Family Diabetes, Family Hypertension, Family Psychiatric Problems, Family Stroke - Social History Smoking Status: Never smoker Frequency of Alcohol Use: None Type of Drug Use: None 12 point system: reviewed and no additional remarkable complaints except as stated - Constitutional Constitutional: Present: as per HPI - EENT Eyes: Present: as per HPI Ears: Present: as per HPI Nose, mouth and throat: Present: as per HPI, dysphagia - Cardiovascular Cardiovascular: Present: as per HPI - Respiratory Respiratory: Present: as per HPI - Gastrointestinal Gastrointestinal: Present: as per HPI, abdominal pain, dyspepsia, dysphagia, early satiety, heartburn, nausea, vomiting - Genitourinary Genitourinary: Present: as per HPI - Musculoskeletal Musculoskeletal: Present: as per HPI - Neurological Neurological: Present: as per HPI - Psychiatric Psychiatric: Present: as per HPI - Endocrine Endocrine: Present: as per HPI - Hematologic/Lymphatic Hematologic/Lymphatic: Present: as per HPI Exam - Constitutional Vitals: Period Temp Pulse Resp BP Sys/Argueta Pulse Ox Last 24 Hr 97.9 F-98.3 F 55-68 18-20 119-161/59-90 93-100 General appearance: normal weight, no acute distress - Head Head exam: Present: normal inspection, normocephalic - Eye Eye exam: Present: other (Lids and conjunctival are unremarkable). Absent: scleral icterus - ENT ENT exam: Present: normal exam, normal oropharynx - Neck Neck exam: Present: normal inspection - Respiratory Respiratory exam: Present: clear to auscultation bilaterally. Absent: rales, rhonchi, wheezes - Cardiovascular Cardiovascular exam: Present: regular rate and rhythm. Absent: diastolic murmur , JVD, systolic murmur - GI/Abdominal GI/Abdominal exam: Present: normal bowel sounds, soft. Absent: ascites, distended, mass, organomegaly, tenderness - Extremities Exam Extremities exam: Present: normal inspection, full ROM - Back Exam Back exam: Present: normal inspection - Neurological Exam Neurological exam: Present: alert, oriented X3 - Psychiatric Psychiatric exam: Present: normal affect, normal mood - Skin Skin exam: Present: normal color, warm, dry Results - Labs CBC & BMP: 08/20/17 00:52 08/20/17 01:00 Lab Results: I have reviewed the past 24 hour labs
[2017-08-20] MEDS: ENOXAPARIN 40 MG/0.4 ML SYRINGE SUBCUT SCH (08:57)
[2017-08-20] MEDS: MORPHINE 2 MG/1 ML SYRINGE IV PRN ×3 (08:57→22:37)
[2017-08-20] MEDS: PANTOPRAZOLE 40 MG TABLET PO SCH (10:36)
[2017-08-20] MEDS: ONDANSETRON 4 MG/2 ML VIAL IV PRN (13:08)
[2017-08-21] MEDS: MORPHINE 2 MG/1 ML SYRINGE IV PRN ×5 (02:45→22:19)
[2017-08-21] MEDS: NITROFURANTOIN MACRO/MONO 100 MG CAPSULE PO SCH ×3 (02:45→16:38)
[2017-08-21] MEDS: ONDANSETRON 4 MG/2 ML VIAL IV PRN ×2 (08:50→18:31)
[2017-08-21] MEDS: ENOXAPARIN 40 MG/0.4 ML SYRINGE SUBCUT SCH (08:50)
--- NOTE | 2017-08-21 09:03 | Gastrointestinal Progress Note ---
Assessment and Plan (1) Epigastric pain Status: Acute Assessment and plan: 08/21-no changes in pain at this time. Awaiting barium swallow this morning. Plan an addendum to followed by Dr. Rust. 08/20-admitted with history of dysphagia and esophageal stricture in the past with recent dilation 3 weeks ago now with continued dysphagia, inability to keep anything down with nausea vomiting. History of multiple dilations in the past. No coffee-ground or hematemesis reports. We will continue to monitor at this time and consider repeat EGD. Plan an addendum to followed by Dr. Rust. Current Visit: Yes Gastroenterology - PN: Subj Interval history: CC: Epigastric pain Patient seen awake and alert lying in bed. States she did not rest well last night due to episodes of epigastric pain. She denies any nausea or vomiting associated with this at this time. She is currently n.p.o. for a barium swallow test this morning. Nursing staff discussed with me this morning concerned over her troponin levels remain mildly elevated. Patient was seen approximately 3 weeks ago and had cardiac evaluation at that time due to this same pain and was felt to be noncardiac origin. She is denying any other associated symptoms with her chest pain at this time. Discussed case with Dr. Coleman this morning. ROS: Denies shortness of breath or chest Exam (Progress Note) - Constitutional Vitals: Period Temp Pulse Resp BP Sys/Argueta Pulse Ox Last 24 Hr 97.2 F-98.5 F 54-60 16-20 109-143/58-77 93-95 - Other Additional findings: General appearance: normal weight, no acute distress - Head Head exam: Present: normal inspection, normocephalic - Eye Eye exam: Present: other (Lids and conjunctival are unremarkable). Absent: scleral icterus - ENT ENT exam: Present: normal exam, normal oropharynx - Neck Neck exam: Present: normal inspection - Respiratory Respiratory exam: Present: clear to auscultation bilaterally. Absent: rales, rhonchi, wheezes - Cardiovascular Cardiovascular exam: Present: regular rate and rhythm. Absent: diastolic murmur , JVD, systolic murmur - GI/Abdominal GI/Abdominal exam: Present: normal bowel sounds, soft. Absent: ascites, distended, mass, organomegaly, tenderness - Extremities Exam Extremities exam: Present: normal inspection, full ROM - Back Exam Back exam: Present: normal inspection - Neurological Exam Neurological exam: Present: alert, oriented X3 - Psychiatric Psychiatric exam: Present: normal affect, normal mood - Skin Skin exam: Present: normal color, warm, dry Results - Labs CBC & BMP: 08/20/17 00:52 08/20/17 01:00 Lab Results: I have reviewed the past 24 hour labs
[2017-08-21] MEDS: PANTOPRAZOLE 40 MG TABLET PO SCH ×2 (09:26→20:43)
--- NOTE | 2017-08-21 11:48 | Hospitalist Progress Note ---
Assessment and Plan (1) Epigastric pain Status: Acute Assessment and plan: 1)epigastric pain- she has had recent EGD and dilation of stricture- barium swallow this morning as symptoms have persisted since EGD. coordinated care with Coretta Orr NP. 2)chest pain/epigastric pain- cardiology evaluation 3 weeks ago for same symptoms was that this is noncardiac pain. Her troponins are always a little above negative as they are this time- all about 0.07. BP controlled. No chest pain this morning. 3)pyuria- culture pending. She denies symptoms. 4)dispo- reconcile meds when available. home when workup complete. Current Visit: Yes (2) GERD (gastroesophageal reflux disease) Status: Chronic Current Visit: No Hospitalist: Subjective Interval history: Mrs Croft has no complaints this morning. She is going to have barium swallow this morning to eval for motility issues. She is hungry. Exam - Constitutional Vitals: Period Temp Pulse Resp BP Sys/Argueta Pulse Ox Last 24 Hr 97.2 F-98.5 F 54-60 14-20 109-143/58-78 93-95 General appearance: normal weight, no acute distress - Eye Eye exam: Present: EOMI. Absent: scleral icterus - Respiratory Respiratory exam: Present: clear to auscultation bilaterally - Cardiovascular Cardiovascular exam: Present: regular rate and rhythm - GI/Abdominal GI/Abdominal exam: Present: normal bowel sounds, soft. Absent: tenderness - Extremities Exam Extremities exam: Absent: edema Results - Labs CBC & BMP: 08/20/17 00:52 08/20/17 01:00 Lab Results: I have reviewed the past 24 hour labs
[2017-08-21 14:51] LABS: Troponin I Only 0.081 NG/ML (0.00-0.045)
--- NOTE | 2017-08-21 16:13 | Cardiology Consult Note ---
Nito Valdez April RN, am scribing for, and in the presence of, Monty Tovar MD 16:12. Assessment and Plan - Time spent with patient Time spent with patient: Greater than 30 minutes (Due to assessment, planning, documentation, medication review) (1) Elevated troponin Status: Acute Assessment and plan: The patient has a trivial abnormality in cardiac troponin. Her symptoms really do not sound cardiac at all. However, I would like to recheck an echocardiogram to make sure there is been no change in her left ventricular function. We will see what her gastrointestinal evaluation shows and continue to monitor her cardiac status. Current Visit: Yes (2) Epigastric pain Status: Acute Assessment and plan: The patient has been having ongoing problems with abdominal and epigastric pain , dysphagia, nausea, and vomiting. Gastroenterology is evaluating her. 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 Croft is a 71 year old female with a history of GERD, gastric ulcers, hypertension, chronic back pain. Risk factors are significant for: age, obesity, sedentary lifestyle, hypertension, family history of CAD. Her mother had several MIs in the past, mostly in her 70s. She has a long history of epigastric pain, many times related to NSAID use. She has undergone left heart catheterization in the past by Dr. Galloway on 11/09/14 and was found to have no significant obstructive disease. Echocardiogram done in July of this year with EF 50-55%. Ms. Croft presented to the emergency department on August 20 with complaints of epigastric pain for about 1 month. She was admitted found to have esophageal strictures, was dilated, and discharged home. Said the pain returned after about 3 days and has continued to get worse. The pain seems to radiate into her back. This pain is not affected by activity. She also reports nausea and vomiting anytime she eats. She has been short of breath for the last 2 weeks. She denies any chest pain, palpitations, or dizziness. Initial troponin was trivially elevated at 0.075, these have remained flat as subsequent troponins were 0.067 and 0.077. EKG showed sinus rhythm with heart rate of 61 and was otherwise unremarkable. Chest x-ray was without evidence of any acute process. She had a barium swallow done this morning. CC: Katelin Monae MD - Home Medications and Allergies Home Medications: Home Medications Medication Instructions Recorded Confirmed Type Amlodipine Besylate 10 mg DAILY 04/23/15 08/21/17 History Donepezil [Aricept] 5 mg PO BEDTIME 04/23/15 08/21/17 History clonazePAM [Clonazepam] 1 mg PO BID 04/23/15 08/21/17 History HYDROcodone/ACETAMIN 10-325 [Goff 1 tablet PO Q4-6H PRN #20 tablet 04/25/15 Rx 10-325] Gabapentin Cap/Tab [Neurontin 300 mg PO TID 07/29/17 08/21/17 History Cap/Tab] traZODone [Desyrel] 50 mg PO DAILY 07/29/17 08/21/17 History Pantoprazole Tab [Protonix Tab] 40 mg PO BID #60 tablet 08/02/17 08/21/17 Rx Promethazine Tab [Phenergan Tab] 12.5 mg PO Q6H #30 tablet 08/02/17 08/21/17 Rx Allergies/Adverse Reactions: Allergies Allergy/AdvReac Type Severity Reaction Status Date / Time Latex, Natural Rubber Allergy Intermediate RASH Verified 07/29/17 01:10 Zolpidem [From Ambien] Allergy Intermediate RASH Verified 07/29/17 01:10 acetaminophen Allergy ANAPHYLAXIS Verified 04/23/15 20:08 [From Darvocet-N] nalbuphine [From Nubain] Allergy ANAPHYLAXIS Verified 04/23/15 20:08 propoxyphene Allergy ANAPHYLAXIS Verified 04/23/15 20:08 [From Darvocet-N] - Constitutional Constitutional: Present: as per HPI - EENT Nose, mouth and throat: Absent: epistaxis, headache(s), neck pain - Cardiovascular Cardiovascular: Present: dyspnea, dyspnea on exertion. Absent: chest pain at rest, chest pain with activity, diaphoresis, edema, radiating jaw, neck or arm pain, lightheadedness, orthopnea, palpitations - Respiratory Respiratory: Present: cough, dyspnea, dyspnea on exertion. Absent: hemoptysis, wheezing - Gastrointestinal Gastrointestinal: Present: abdominal pain, nausea, vomiting. Absent: constipation, diarrhea, hematemesis, hematochezia - Genitourinary Genitourinary: Absent: dysuria, hematuria - Musculoskeletal Musculoskeletal: Present: limited range of motion, muscle weakness - Neurological Neurological: Absent: confusion, dizziness - Psychiatric Psychiatric: Absent: anxiety, depression Medical,Surgical,& Family Hx - Medical History Cardio: History of: Hypertension Neurology: History of: Dementia Respiratory: History of: Pneumonia Renal: History of: Renal Problems (A chronic renal insufficiency) Genitourinary: History of: Kidney Stones Gastrointestinal: History of: Diverticulitis/ Diverticulosis, GERD, Gastrointestinal Bleed, Pancreatitis (calcific changes status post ERCP on with sphincterotomy ), GI Problems (ulcers, mild esophagitis, jejunal AVMs.) Musculoskeletal: History of: Back/Neck Problems - Surgical History Cardiac Surgeries: Sugical HX of: Cardiac Catheterization (2012) Thoracic Surgeries: Surgical HX of;: Lithotripsy (2012) HEENT Surgeries: Surgical HX of: Tonsilectomy & 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) Abdominal Surgeries: Surgical HX of: Cholecystectomy, Colonoscopy (2011), EGD ( 2011) Reproductive Surgeries: Surgical HX of;: Hysterectomy Orthopedic Surgeries: Surgical HX of;: Total Knee Replacement (Left) - Family History Family History: Reports;: Family Cancer (lymphoma), Family Heart Disease (mother ) Denies;: Family Stroke - Social History Smoking Status: Never smoker Frequency of Alcohol Use: None Type of Drug Use: None Physical Examination Vital Signs Temp Pulse Resp BP Pulse Ox 98 F 68 18 127/82 100 08/19/17 23:34 08/19/17 23:34 08/19/17 23:34 08/19/17 23:34 08/19/17 23:34 General: Present: Appears Well, No Apparent Distress HEENT: Present: PERRL, Mucus Membranes Moist Neck: Present: Supple Neck, Midline Trachea, No Bruit Cardiac: Present: Reg Rate and Rhythm, No Murmur Lungs: Present: Normal Breath Sounds, No Wheeze, Rales, Rhonchi Neuro: Absent: Resting Tremor, Essential Tremor Abdomen: Present: Soft, Active Bowel Sounds, Tender Skin: Absent: Rash, Suspicious Lesions Extremities: Present: No Edema, Normal Upper Extr. Pulses, Normal Lower Extr. Pulses Result/EKG - Labs CBC & BMP: 08/20/17 00:52 08/20/17 01:00 Lab Results: I have reviewed the past 24 hour labs Labs: Laboratory Results - last 24 hr 08/20/17 14:52 Troponin I 0.077 H - Diagnostic Findings Procedure: Chest x-ray: report reviewed by me - EKG EKG results: interpreted by me EKG shows: sinus rhythm I, Monty Tovar MD, personally performed the services described in this documentation, ascribed by Lou Beauchamp RN in my presence, and it is both accurate and complete 613 .
[2017-08-21] MEDS: amLODIPine 10 MG TABLET PO SCH (16:39)
--- NOTE | 2017-08-21 16:42 | Order Completion Report ---
See report scanned to EMR
[2017-08-21] MEDS: clonazePAM 0.5 MG TABLET PO SCH (20:42)
[2017-08-21] MEDS: traZODone 50 MG TABLET PO SCH (20:43)
[2017-08-21] MEDS: DONEPEZIL 5 MG TABLET PO SCH (20:43)
[2017-08-21] MEDS: GABAPENTIN 300 MG CAPSULE PO SCH (20:43)
[2017-08-22] MEDS: NITROFURANTOIN MACRO/MONO 100 MG CAPSULE PO SCH ×3 (02:49→14:53)
[2017-08-22] MEDS: MORPHINE 2 MG/1 ML SYRINGE IV PRN ×2 (02:49→06:41)
[2017-08-22 07:14] LABS: Troponin I Only 0.072 NG/ML (0.00-0.045)
--- NOTE | 2017-08-22 08:28 | Gastrointestinal Progress Note ---
Assessment and Plan (1) Epigastric pain Status: Acute Assessment and plan: 08/22-no changes at this time. Awaiting reschedule barium swallow for today. Cardiology consult noted. Will order heating pad for neck pain/stiffness. Plan an addendum to follow Dr. Rust. 08/21-no changes in pain at this time. Awaiting barium swallow this morning. Plan an addendum to followed by Dr. Rust. 08/20-admitted with history of dysphagia and esophageal stricture in the past with recent dilation 3 weeks ago now with continued dysphagia, inability to keep anything down with nausea vomiting. History of multiple dilations in the past. No coffee-ground or hematemesis reports. We will continue to monitor at this time and consider repeat EGD. Plan an addendum to followed by Dr. Rust. Current Visit: Yes Gastroenterology - PN: Subj Interval history: CC: Dysphagia, epigastric pain Pt is seen, awake and alert. States she rested fairly well last night. She is complaining of some neck soreness and stiffness since placement of her central line. She states that she is worried it is going to be pulled out and feels like she has been protecting it by not moving her head very much. She has some trigger point tenderness to her neck and trapezius muscles but no signs of infection at central line site. She states she is having continued epigastric pain and is relieved by Morphine. Her troponin levels remain mildly elevated however cardiology has been consulted again. She is awaiting her barium swallow today. Abdomen is soft, nontender. ROS: Denies SOB or chest pain Exam (Progress Note) - Constitutional Vitals: Period Temp Pulse Resp BP Sys/Argueta Pulse Ox Last 24 Hr 97.6 F-99.3 F 59-66 14-20 112-142/58-78 93-99 - Other Additional findings: General appearance: normal weight, no acute distress - Head Head exam: Present: normal inspection, normocephalic - Eye Eye exam: Present: other (Lids and conjunctival are unremarkable). Absent: scleral icterus - ENT ENT exam: Present: normal exam, normal oropharynx - Neck Neck exam: Present: normal inspection - Respiratory Respiratory exam: Present: clear to auscultation bilaterally. Absent: rales, rhonchi, wheezes - Cardiovascular Cardiovascular exam: Present: regular rate and rhythm. Absent: diastolic murmur , JVD, systolic murmur - GI/Abdominal GI/Abdominal exam: Present: normal bowel sounds, soft. Absent: ascites, distended, mass, organomegaly, tenderness - Extremities Exam Extremities exam: Present: normal inspection, full ROM - Back Exam Back exam: Present: normal inspection - Neurological Exam Neurological exam: Present: alert, oriented X3 - Psychiatric Psychiatric exam: Present: normal affect, normal mood - Skin Skin exam: Present: normal color, warm, dry Results - Labs CBC & BMP: 08/20/17 00:52 08/20/17 01:00 Lab Results: I have reviewed the past 24 hour labs
[2017-08-22] MEDS: ENOXAPARIN 40 MG/0.4 ML SYRINGE SUBCUT SCH (08:48)
[2017-08-22] MEDS ORDERED: BISACODYL 5 MG TABLET PO ONE (10:35)
[2017-08-22] MEDS: amLODIPine 10 MG TABLET PO SCH (10:43)
[2017-08-22] MEDS: GABAPENTIN 300 MG CAPSULE PO SCH ×3 (10:43→21:14)
[2017-08-22] MEDS: PANTOPRAZOLE 40 MG TABLET PO SCH ×2 (10:43→21:14)
[2017-08-22] MEDS: clonazePAM 0.5 MG TABLET PO SCH ×2 (10:43→21:14)
--- NOTE | 2017-08-22 11:09 | Hospitalist Progress Note ---
Assessment and Plan (1) Epigastric pain Status: Acute Assessment and plan: 1)epigastric pain- she has had recent EGD and dilation of stricture- barium swallow this morning as symptoms have persisted since EGD. She has had GI compalints for 20 years per the nurses that know her well. To me she seems resigned to her problems. 2)chest pain/epigastric pain- cardiology evaluation 3 weeks ago for same symptoms was that this is noncardiac pain. Her troponins are always a little above negative as they are this time- all about 0.07. BP controlled. No chest pain this morning. Appreciate Dr Tovar's eval- echo showed normal systolic function and mild diastolic dysfunction which is chronic. 3)pyuria- grew e coli 10,000, and strep 100,000 but no symptoms- will not give antibiotics for asymptomatic bacteruria. No LE or nitrate on UA. 4)dispo- home meds reconciled yesterday. home when workup complete. Current Visit: Yes (2) GERD (gastroesophageal reflux disease) Status: Chronic Current Visit: No Hospitalist: Subjective Interval history: Her nausea persists. She was not able to eat clears last night. She is not very worried about her situation. She reports no pain this morning. She is scheduled for barium swallow this morning. UCx grew 2 bacteria, but this is asymptomatic bacteruria and we will not treat. Exam - Constitutional Vitals: Period Temp Pulse Resp BP Sys/Argueta Pulse Ox Last 24 Hr 97.6 F-99.3 F 59-66 14-20 112-142/58-78 93-99 General appearance: normal weight, no acute distress - Eye Eye exam: Present: EOMI. Absent: scleral icterus - Respiratory Respiratory exam: Present: clear to auscultation bilaterally - Cardiovascular Cardiovascular exam: Present: regular rate and rhythm - GI/Abdominal GI/Abdominal exam: Present: normal bowel sounds, soft - Extremities Exam Extremities exam: Absent: edema - Neurological Exam Neurological exam: Present: alert, oriented X3 Results - Labs CBC & BMP: 08/20/17 00:52 08/20/17 01:00 Lab Results: I have reviewed the past 24 hour labs
--- NOTE | 2017-08-22 14:55 | Fluoroscopy Report ---
History: Dysphagia. History of benign esophageal stricture status post recent esophageal dilatation Date: 08/22/2017 Study: Barium swallow single contrast Comparison exam: No previous similar The patient ingested barium under intermittent fluoroscopic evaluation. The patient also swallowed an 11 mm barium tablet. 56 seconds total fluoroscopy time was utilized. 51 total images were captured and archived. Barium passes through the distensible esophagus without mass lesion or mucosal irregularity. There is some moderate tertiary esophageal contraction. No hiatal hernia is demonstrated. No esophageal mass or high-grade stricture is seen. No spontaneous gastroesophageal reflux occurred. An 11 mm barium tablet traverses the GE junction without difficulty. Impression: Moderate tertiary esophageal contractions. No anatomic obstruction of the esophagus visualized. There is no high-grade stricture. 11 mm barium tablet traverses the GE junction PROCEDURE INTERPRETED AT [facility] DEPARTMENT OF RADIOLOGY Final Report Signed by: Dr. Bryanna Rust
--- NOTE | 2017-08-22 16:18 | Cardiology Progress Note ---
Courtney, Lou Beauchamp RN, am scribing for, and in the presence of, Monty Tovar MD 16:11. Assessment and Plan (1) Elevated troponin Status: Acute Assessment and plan: The patient has a trivial abnormality in cardiac troponin, but there is not a rise and fall pattern and her CPK and MB are both normal as well. It appears that she just has a stagnant trivial elevation. Her symptoms do not sound cardiac at all. Echocardiogram done yesterday with ejection fraction of 55-60% . I do not think the patient has significant cardiac ischemia/disease at this time. I am going to drop off of her case at this time. If there is any clinical change or if I can be of additional assistance please call. Current Visit: Yes (2) Epigastric pain Status: Acute Assessment and plan: The patient has been having ongoing problems with abdominal and epigastric pain , dysphagia, nausea, and vomiting. Gastroenterology is evaluating her. 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 Croft is a 71 year old female with a history of GERD, gastric ulcers, hypertension, chronic back pain. Risk factors are significant for: age, obesity, sedentary lifestyle, hypertension, family history of CAD. Her mother had several MIs in the past, mostly in her 70s. She has a long history of epigastric pain, many times related to NSAID use. She has undergone left heart catheterization in the past by Dr. Galloway on and was found to have no significant obstructive disease. Echocardiogram done in July of this year with EF 50-55%. Ms. Croft presented to the emergency department on August 20 with complaints of epigastric pain for about 1 month. She was admitted found to have esophageal strictures, was dilated, and discharged home. She said the pain returned after about 3 days and has continued to get worse. The pain seems to radiate into her back. This pain is not affected by activity. She also reports nausea and vomiting anytime she eats. She has been short of breath for the last 2 weeks. She denies any chest pain, palpitations, or dizziness. Initial troponin was trivially elevated at 0.075, these have remained flat as subsequent troponins were 0.067 and 0.077. EKG showed sinus rhythm with heart rate of 61 and was otherwise unremarkable. Chest x-ray was without evidence of any acute process. August 22, 2017: Ms. Croft continues to complain of epigastric pain/ abdominal which seems worse after eating. She is also complaining of discomfort in her neck related to the IJ catether, she says she has been trying not to move her neck because of the central line. She continues to deny chest pain. Troponin this morning was 0.072 with negative CK and CK-MB. Echocardiogram done yesterday with ejection fraction 55-60%. Barium swallow was performed today. Exam (Progress Note) - Constitutional Vitals: Period Temp Pulse Resp BP Sys/Argueta Pulse Ox Last 24 Hr 97.6 F-99.3 F 59-66 14-20 112-142/58-78 93-99 General appearance: no acute distress, over weight - Head Head exam: Absent: abrasion, hematoma - Eye Eye exam: Present: EOMI Pupils: Present: YESIKA - Neck Neck exam: Present: tenderness, other (Central line to the right side of neck) - Respiratory Respiratory exam: Present: clear to auscultation bilaterally. Absent: accessory muscle use, chest wall tenderness - Cardiovascular Cardiovascular exam: Present: regular rate and rhythm. Absent: systolic murmur - GI/Abdominal GI/Abdominal exam: Present: normal bowel sounds, tenderness, soft. Absent: distended - Extremities Exam Extremities exam: Absent: calf tenderness, edema - Neurological Exam Neurological exam: Present: alert, oriented X3 - Psychiatric Psychiatric exam: Present: normal affect, normal mood - Skin Skin exam: Present: warm, dry Result/EKG - Labs CBC & BMP: 08/20/17 00:52 08/20/17 01:00 Lab Results: I have reviewed the past 24 hour labs Labs: Laboratory Results - last 24 hr 08/21/17 08/22/17 14:14 05:25 Total Creatine Kinase 40 35 CK-MB (CK-2) < 1.0 < 1.0 Troponin I 0.081 H 0.072 H - Diagnostic Findings Procedure: Chest x-ray: report reviewed by me Guy Valdez Michael, MD, personally performed the services described in this documentation, ascribed by Lou Beauchamp RN in my presence, and it is both accurate and complete .
[2017-08-22] MEDS: traZODone 50 MG TABLET PO SCH (21:14)
[2017-08-22] MEDS: DONEPEZIL 5 MG TABLET PO SCH (21:14)
[2017-08-23] MEDS ORDERED: MORPHINE 2 MG/1 ML SYRINGE IV ONE ×2 (02:00→13:49)
[2017-08-23] MEDS: NITROFURANTOIN MACRO/MONO 100 MG CAPSULE PO SCH ×2 (03:44→15:00)
--- NOTE | 2017-08-23 08:26 | Gastrointestinal Progress Note ---
Assessment and Plan (1) Epigastric pain Status: Acute Assessment and plan: 08/23-epigastric pain slightly improved. Parents follow results were noted. Gastric emptying scan underway. Continue to monitor. Plan an addendum to followed by Dr. Rust. 08/22-no changes at this time. Awaiting reschedule barium swallow for today. Cardiology consult noted. Will order heating pad for neck pain/stiffness. Plan an addendum to follow Dr. Rust. 08/21-no changes in pain at this time. Awaiting barium swallow this morning. Plan an addendum to followed by Dr. Rust. 08/20-admitted with history of dysphagia and esophageal stricture in the past with recent dilation 3 weeks ago now with continued dysphagia, inability to keep anything down with nausea vomiting. History of multiple dilations in the past. No coffee-ground or hematemesis reports. We will continue to monitor at this time and consider repeat EGD. Plan an addendum to followed by Dr. Rust. Current Visit: Yes Gastroenterology - PN: Subj Interval history: CC: Epigastric pain Patient is seen awake and alert. States she rested well last night. States her neck pain/stiffness and is improved since using the heating pad. She denies any abdominal pain, nausea or vomiting. She does state that her epigastric pain is a little bit better today. She has already been downstairs for the first part of her gastric emptying scan however she has to return in 1 hour. Overall patient states she is feeling somewhat better. ROS: Denies shortness of breath or chest pain Exam (Progress Note) - Constitutional Vitals: Period Temp Pulse Resp BP Sys/Argueta Pulse Ox Last 24 Hr 98.8 F-99.9 F 52-63 18-20 103-114/51-59 93-96 - Other Additional findings: General appearance: normal weight, no acute distress - Head Head exam: Present: normal inspection, normocephalic - Eye Eye exam: Present: other (Lids and conjunctival are unremarkable). Absent: scleral icterus - ENT ENT exam: Present: normal exam, normal oropharynx - Neck Neck exam: Present: normal inspection - Respiratory Respiratory exam: Present: clear to auscultation bilaterally. Absent: rales, rhonchi, wheezes - Cardiovascular Cardiovascular exam: Present: regular rate and rhythm. Absent: diastolic murmur , JVD, systolic murmur - GI/Abdominal GI/Abdominal exam: Present: normal bowel sounds, soft. Absent: ascites, distended, mass, organomegaly, tenderness - Extremities Exam Extremities exam: Present: normal inspection, full ROM - Back Exam Back exam: Present: normal inspection - Neurological Exam Neurological exam: Present: alert, oriented X3 - Psychiatric Psychiatric exam: Present: normal affect, normal mood - Skin Skin exam: Present: normal color, warm, dry Results - Labs CBC & BMP: 08/20/17 00:52 08/20/17 01:00 Lab Results: I have reviewed the past 24 hour labs
--- NOTE | 2017-08-23 09:56 | Hospitalist Progress Note ---
Hospitalist: Subjective Interval history: Patient states that abdominal pain is a little better. She describes the pain as crampy. Nausea continues. She states that she is able to tolerate clears a little better. She admits to having some depression. She gets sad when thinking about her mother and sister who about 5 years ago. 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 She also gets sad about the of her 21 year old son. She has problems sleeping and notes a fair appetite. Exam - Constitutional Vitals: Period Temp Pulse Resp BP Sys/Argueta Pulse Ox Last 24 Hr 97.6 F-99.9 F 52-64 18-20 97-114/51-59 92-96 General appearance: no acute distress - Head Head exam: Present: normal inspection, normocephalic - Eye Eye exam: Present: EOMI Pupils: Present: YESIKA - ENT ENT exam: Present: normal exam, normal oropharynx - Respiratory Respiratory exam: Present: clear to auscultation bilaterally. Absent: rales, rhonchi, wheezes - Cardiovascular Cardiovascular exam: Present: regular rate and rhythm - GI/Abdominal GI/Abdominal exam: Present: normal bowel sounds, tenderness, other (left upper quadrant and left lower quadrant tenderness without any rebound or guarding). Absent: distended, guarding, rebound - Extremities Exam Extremities exam: Present: normal inspection. Absent: edema - Neurological Exam Neurological exam: Present: alert, oriented X3 - Psychiatric Psychiatric exam: Present: normal affect, normal mood Results - Labs CBC & BMP: 08/20/17 00:52 08/20/17 01:00 - Impressions 1. Abdominal pain, slight improvement; being followed by GI; appreciate help; noted plan for gastric emptying study today 2. Nausea 3. Dysphagia: BS showed no esophageal obstruction; it showed teriatry esophageal contractions; so far, she is tolerating liquids 4. Suspected depression: will start remeron, which may help with nausea/appetite /sleep/mood 5. h/o stricture s/p dilatation 3 weeks ago 6. Non cardiac chest pain; cardiology signed off; echo with EF: 55-60% 7. HTN: blood pressure controlled; monitor Plan: as noted above; await results of gastric empyting study; trial of remeron ; continue anti emetic therapy
[2017-08-23] MEDS: DOCUSATE SODIUM 100 MG CAPSULE PO PRN (12:08)
[2017-08-23] MEDS: ENOXAPARIN 40 MG/0.4 ML SYRINGE SUBCUT SCH (12:08)
[2017-08-23] MEDS: clonazePAM 0.5 MG TABLET PO SCH ×2 (12:08→20:49)
[2017-08-23] MEDS: GABAPENTIN 300 MG CAPSULE PO SCH ×3 (12:08→20:50)
[2017-08-23] MEDS: amLODIPine 10 MG TABLET PO SCH (12:08)
[2017-08-23] MEDS: PANTOPRAZOLE 40 MG TABLET PO SCH ×2 (12:08→20:51)
--- NOTE | 2017-08-23 12:23 | Nuclear Medicine Report ---
Exam: NM gastric emptying study Date: 08/23/2017 4:00 AM Comparison: None Indication: Recurrent nausea with upper abdominal pain Technique:[Patient given 500 mCi technetium 99m sulfur colloid orally in scrambled eggs with toast. Gastric emptying scans were obtained.] Findings: T1/2 equals 251.97 minutes. At 59 minutes, there is 3% gastric empty. At 127 minutes, there is 18% gastric emptying. At 181 minutes, there is 29% gastric emptying. At 237 minutes, there is 50% gastric emptying. Impression: Significantly delayed gastric emptying with T1/2 equals 251.97. PROCEDURE INTERPRETED AT [facility] DEPARTMENT OF RADIOLOGY Final Report Signed by: Dr. Samina Ovalle
[2017-08-23] MEDS: ONDANSETRON 4 MG/2 ML VIAL IV PRN (13:02)
--- NOTE | 2017-08-23 15:03 | XRay Report ---
Exam: KUB Exam date: 08/23/2017 2:53 PM Indication: Abdominal pain, distention Comparison: No relevant comparison images Findings: Bowel gas pattern and visceral shadows are normal. Small amount of residual contrast throughout the colon with scattered colonic diverticula. No abnormal calcifications within the abdomen or pelvis. No acute osseous abnormalities. Rotary scoliosis of the lumbar spine with multilevel spondylosis. Visualized lung bases are unremarkable. Impression: Diverticulosis coli. Nonobstructive bowel gas pattern PROCEDURE INTERPRETED AT [facility] DEPARTMENT OF RADIOLOGY Final Report Signed by: Gissel Powell MD
[2017-08-23] MEDS: MIRTAZAPINE 15 MG TABLET PO SCH (20:49)
[2017-08-23] MEDS: DONEPEZIL 5 MG TABLET PO SCH (20:51)
[2017-08-24] MEDS: NITROFURANTOIN MACRO/MONO 100 MG CAPSULE PO SCH ×2 (04:16→16:30)
[2017-08-24 05:18] LABS: Basophils % 0.4 % (0.0-0.8); Eosinophils # 0.4 10*3/uL (0.0-0.87); Eosinophils % 6.2 % (0.00-10.9); Hematocrit 28.6 VOL% (35.7-47.0); Hemoglobin 9.5 GM/DL (12.0-16.0); Immature Granulocytes % 0.2 %; Immature Granulocytes Absolute 0.01 #; Lymphocytes # 1.9 10*3/uL (1.4-4.0); Lymphocytes % 33.5 % (21.3-54.2); Mean Corpuscular HGB Conc 33.2 GM/DL (32-36); Mean Corpuscular Hemoglobin 34 PG (27-34); Mean Corpuscular Volume 101.8 FL (87-102); Mean Platelet Volume 11.8 FL (9.6-12.0); Monocytes # 0.7 10*3/uL (0.11-0.8); Monocytes % 11.8 % (1.7-12.7); Neutrophils # 2.7 10*3/uL (1.4-7.4); Neutrophils % 47.9 % (38.7-73.9); Platelet Count 241 T/CUMM (130-400); Red Blood Count 2.81 MC/CUMM (3.8-5.5); Red Cell Distribution Width 13.8 % (9.3-17.3); White Blood Count 5.7 T/CUMM (4-12)
[2017-08-24 05:51] LABS: Calcium 8.4 MG/DL (8.5-10.1); Magnesium 1.7 MG/DL (1.8-2.4); Osmolality,Calculated 288.6 MOS/KG (273-304); Potassium 3.5 MMOL/L (3.5-5.1)
[2017-08-24] MEDS: PANTOPRAZOLE 40 MG TABLET PO SCH ×2 (08:07→20:57)
[2017-08-24] MEDS: ENOXAPARIN 40 MG/0.4 ML SYRINGE SUBCUT SCH (08:07)
[2017-08-24] MEDS: amLODIPine 10 MG TABLET PO SCH (08:08)
[2017-08-24] MEDS: GABAPENTIN 300 MG CAPSULE PO SCH ×3 (08:08→20:57)
[2017-08-24] MEDS: clonazePAM 0.5 MG TABLET PO SCH ×2 (08:08→20:57)
--- NOTE | 2017-08-24 13:12 | Hospitalist Progress Note ---
Hospitalist: Subjective Interval history: Patient underwent gastric emptying study on yesterday, and it was consistent with gastroparesis. She was given erythromycin. Low residue diet was recommended by GI upon discharge. Patient continues to have the LUQ crampy abdominal pain. Education provided. She notes some neck pain. She denies any fevers. Exam - Constitutional Vitals: Period Temp Pulse Resp BP Sys/Argueta Pulse Ox Last 24 Hr 96.9 F-99.1 F 54-86 16-20 104-126/50-59 91-94 General appearance: no acute distress, over weight - Head Head exam: Present: normal inspection, normocephalic - Eye Eye exam: Present: EOMI Pupils: Present: YESIKA - Neck Neck exam: Present: tenderness (RIJ intact without any tenderness/erythema/ discharge; neck: paraspinal and spinal tenderness, decresaed ROM), other. Absent: meningismus - Respiratory Respiratory exam: Present: clear to auscultation bilaterally. Absent: rales, rhonchi, wheezes - Cardiovascular Cardiovascular exam: Present: regular rate and rhythm - GI/Abdominal GI/Abdominal exam: Present: normal bowel sounds, tenderness (LUQ tenderness, no rebound), soft, other (LUQ tenderness). Absent: distended, guarding, rebound - Extremities Exam Extremities exam: Absent: edema - Neurological Exam Neurological exam: Present: oriented X3 - Psychiatric Psychiatric exam: Present: depressed, flat affect - Skin Skin exam: Present: normal color, warm Results - Labs CBC & BMP: 08/24/17 04:39 08/24/17 04:39 - Impressions 1. Abdominal pain: likely 2nd to gastroparesis; slight improvement; being followed by GI; appreciate help; on full liquid diet; consult nutrition for education on low residual diet/food choices 2. Gastroparesis: check tsh/b12/hba1c; avoid anti cholingeric medications as much as possible; avoid constipation 3. Nausea, controlled; continue anti emetics 3. Dysphagia: BS showed no esophageal obstruction; it showed teriatry esophageal contractions; so far, she is tolerating her diet 4. Suspected depression: on remeron, which may help with nausea/appetite/sleep/ mood 5. h/o stricture s/p dilatation 3 weeks ago 6. Non cardiac chest pain; cardiology signed off; echo with EF: 55-60% 7. HTN: blood pressure controlled; monitor 8. neck pain: musculoskeletal: continue gabapentin/prn flexeril; neck xray/PT Plan: as noted above; hopefully discharge in the next 1-2 days
--- NOTE | 2017-08-24 14:05 | XRay Report ---
Soft tissue neck Indication: Cervicalgia Findings: Vertebral bodies are normal in height. No fracture seen. Disc space heights are within normal limits. No abnormal soft tissue density identified. Impression: No evidence of abnormality seen. PROCEDURE INTERPRETED AT [facility] DEPARTMENT OF RADIOLOGY Final Report Signed by: Dr. Rogers Donovan
[2017-08-24] MEDS: DONEPEZIL 5 MG TABLET PO SCH (20:55)
[2017-08-24] MEDS: MIRTAZAPINE 15 MG TABLET PO SCH (20:56)
[2017-08-24] MEDS: CYCLOBENZAPRINE 10 MG TABLET PO SCH (20:57)
[2017-08-24] MEDS ORDERED: METOCLOPRAMIDE 10 MG/2 ML VIAL IV ONE (23:27)
[2017-08-24] MEDS ORDERED: ALUMINUM/MAGNES/SIMETH MAX STR 30 ML UDCUP PO PRN (23:28)
[2017-08-25 04:25] LABS: Free T4 (Free Thyroxine) 1.08 NG/DL (0.76-1.46); Thyroid Stimulating Hormone 2.57 uIU/ml (0.358-3.74)
[2017-08-25] MEDS: clonazePAM 0.5 MG TABLET PO SCH ×2 (10:20→21:01)
[2017-08-25] MEDS: amLODIPine 10 MG TABLET PO SCH (10:20)
[2017-08-25] MEDS: PANTOPRAZOLE 40 MG TABLET PO SCH ×2 (10:21→21:01)
[2017-08-25] MEDS: CYCLOBENZAPRINE 10 MG TABLET PO SCH ×2 (10:21→21:01)
[2017-08-25] MEDS: GABAPENTIN 300 MG CAPSULE PO SCH ×3 (10:21→21:01)
[2017-08-25] MEDS: ENOXAPARIN 40 MG/0.4 ML SYRINGE SUBCUT SCH (10:21)
[2017-08-25] MEDS: ERYTHROMYCIN BASE 250 MG TABLET PO SCH ×2 (12:05→19:03)
--- NOTE | 2017-08-25 13:53 | Hospitalist Progress Note ---
Assessment and Plan (1) Gastroparesis Status: Acute Assessment and plan: We will try patient on a short course of erythromycin 250 mg 3 times daily alongside food intake. Patient will be advanced to low residue diet today. Everything is okay sugar to be discharged in the coming 24 hours Current Visit: Yes (2) Hypernatremia Status: Acute Assessment and plan: Repeat chemistries tomorrow hopefully this will improve with the increase in free water intake as the patient is doing now. Current Visit: Yes (3) Abdominal pain Status: Resolved Assessment and plan: Continue mild analgesia. Patient is no longer vomiting at this time. Is able to eat. Current Visit: Yes Hospitalist: Subjective Interval history: Patient has been seen interviewed and examined and chart has been reviewed admitted to the hospital complaining of epigastric discomfort this patient was started on clear liquid yesterday and subsequently advanced to full liquids. She seemed to be tolerating them. She has significant gastroparesis without a strong history of diabetes in the past. She has used Phenergan in the past for nausea and vomiting for the short call she may need to be on erythromycin 250 mg 3 times daily with food Exam - Constitutional Vitals: Period Temp Pulse Resp BP Sys/Argueta Pulse Ox Last 24 Hr 98.3 F-99.6 F 59-69 16-20 103-134/54-63 93-97 General appearance: over weight - Head Head exam: Present: normocephalic, atraumatic - Eye Eye exam: Present: EOMI Pupils: Present: YESIKA - ENT ENT exam: Present: normal exam - Neck Neck exam: Present: normal inspection - Respiratory Respiratory exam: Present: clear to auscultation bilaterally - Cardiovascular Cardiovascular exam: Present: regular rate and rhythm - GI/Abdominal GI/Abdominal exam: Present: normal bowel sounds, soft, other (She does have significant epigastric discomfort to palpation) - Extremities Exam Extremities exam: Present: full ROM - Neurological Exam Neurological exam: Present: alert, oriented X3, CN II-XII intact - Psychiatric Psychiatric exam: Present: normal affect, normal mood - Skin Skin exam: Present: normal color, warm, dry Results - Labs CBC & BMP: 08/24/17 04:39 08/24/17 04:39 Lab Results: I have reviewed the past 24 hour labs (Noted mild hyponatremia 146 mmol/L)
[2017-08-25] MEDS: DONEPEZIL 5 MG TABLET PO SCH (21:00)
[2017-08-25] MEDS: MIRTAZAPINE 15 MG TABLET PO SCH (21:01)
[2017-08-26 07:55] LABS: Calcium 8.6 MG/DL (8.5-10.1); Magnesium 1.8 MG/DL (1.8-2.4); Osmolality,Calculated 287.8 MOS/KG (273-304); Potassium 3.7 MMOL/L (3.5-5.1)
[2017-08-26] MEDS: clonazePAM 0.5 MG TABLET PO SCH ×2 (08:13→20:57)
[2017-08-26] MEDS: ERYTHROMYCIN BASE 250 MG TABLET PO SCH ×3 (08:13→16:05)
[2017-08-26] MEDS: PANTOPRAZOLE 40 MG TABLET PO SCH ×2 (08:13→20:58)
[2017-08-26] MEDS: GABAPENTIN 300 MG CAPSULE PO SCH ×3 (08:13→20:58)
[2017-08-26] MEDS: CYCLOBENZAPRINE 10 MG TABLET PO SCH ×2 (08:13→20:58)
[2017-08-26] MEDS: amLODIPine 10 MG TABLET PO SCH (08:14)
[2017-08-26] MEDS: ENOXAPARIN 40 MG/0.4 ML SYRINGE SUBCUT SCH (08:14)
--- NOTE | 2017-08-26 08:38 | Gastrointestinal Progress Note ---
Assessment and Plan (1) Epigastric pain Status: Acute Assessment and plan: 08/26-Pain improved, nausea improved as well. Tolearting diet. Dulcolax prn. Plan and addendum to follow by Dr Rust. 08/23-epigastric pain slightly improved. Parents follow results were noted. Gastric emptying scan underway. Continue to monitor. Plan an addendum to followed by Dr. Rust. 08/22-no changes at this time. Awaiting reschedule barium swallow for today. Cardiology consult noted. Will order heating pad for neck pain/stiffness. Plan an addendum to follow Dr. Rust. 08/21-no changes in pain at this time. Awaiting barium swallow this morning. Plan an addendum to followed by Dr. Rust. 08/20-admitted with history of dysphagia and esophageal stricture in the past with recent dilation 3 weeks ago now with continued dysphagia, inability to keep anything down with nausea vomiting. History of multiple dilations in the past. No coffee-ground or hematemesis reports. We will continue to monitor at this time and consider repeat EGD. Plan an addendum to followed by Dr. Rust. Current Visit: Yes Gastroenterology - PN: Subj Interval history: CC: Epigastric pain Pt is seen, awake and alert, sitting up in bed. States she is feeling some better today. She states that she has had a decrease in her epigastric pain over the weekend and is tolerating her diet well at this time with decrease in her nausea. She states that she is having continued pain in her neck but it is some better. She has had OT consulted and working with her. She has a negative cervical xray. Abdomen is soft, nontender. She has not had a bowel movement in several days and is requesting Dulcolax for this works for her in the past. ROS: Denies SOB or chest pain Exam (Progress Note) - Constitutional Vitals: Period Temp Pulse Resp BP Sys/Argueta Pulse Ox Last 24 Hr 97.1 F-100 F 53-72 16-20 96-128/45-64 92-99 General appearance: normal weight, no acute distress - Head Head exam: Present: normal inspection, normocephalic - Eye Eye exam: Present: other (lids and conjunctiva unremarkable). Absent: scleral icterus - ENT ENT exam: Present: normal exam, normal oropharynx - Neck Neck exam: Present: normal inspection - Respiratory Respiratory exam: Present: clear to auscultation bilaterally. Absent: rales, rhonchi, wheezes - Cardiovascular Cardiovascular exam: Present: regular rate and rhythm. Absent: diastolic murmur , JVD, systolic murmur - GI/Abdominal GI/Abdominal exam: Present: normal bowel sounds, soft. Absent: ascites, distended, mass, organomegaly, tenderness - Extremities Exam Extremities exam: Present: normal inspection, full ROM - Back Exam Back exam: Present: normal inspection - Neurological Exam Neurological exam: Present: alert, oriented X3 - Psychiatric Psychiatric exam: Present: normal affect, normal mood - Skin Skin exam: Present: normal color, warm, dry Results - Labs CBC & BMP: 08/24/17 04:39 08/26/17 05:50 Lab Results: I have reviewed the past 24 hour labs
[2017-08-26] MEDS: ONDANSETRON 4 MG/2 ML VIAL IV PRN (09:08)
[2017-08-26] MEDS: BISACODYL 5 MG TABLET PO PRN (09:08)
[2017-08-26] MEDS: DEXTROSE 5% NACL 0.9% 1,000 ML IV SCH (11:00)
--- NOTE | 2017-08-26 11:19 | Hospitalist Progress Note ---
Assessment and Plan (1) Gastroparesis Status: Acute Assessment and plan: Unfortunately patient had another event of emesis this morning following intake of breakfast. Will try to continue the same diet and continue erythromycin. She does have Phenergan to use if he gets to be nauseated. She also has Zofran. Current Visit: Yes (2) Hypernatremia Status: Acute Assessment and plan: This is normalized on today's chemistry Current Visit: Yes (3) Abdominal pain Status: Resolved Assessment and plan: Continue mild analgesia. Patient is no longer vomiting at this time. Is able to eat. Current Visit: Yes Hospitalist: Subjective Interval history: Patient has been seen interviewed and examined and chart has been reviewed. Ms. Croft is in the hospital events of nausea and vomiting found to have significant gastroparesis and absence of diabetes. She was started on low residue diet yesterday. Differential she refused to eat supper she tried breakfast today and they threw it out. Started her on azithromycin yesterday which obviously has not had much positive effect. Exam - Constitutional Vitals: Period Temp Pulse Resp BP Sys/Argueta Pulse Ox Last 24 Hr 97.1 F-100 F 53-72 16-20 96-128/45-64 92-99 General appearance: no acute distress, over weight - Head Head exam: Present: normocephalic, atraumatic - Eye Eye exam: Present: EOMI Pupils: Present: YESIKA - ENT ENT exam: Present: normal exam - Respiratory Respiratory exam: Present: clear to auscultation bilaterally - Cardiovascular Cardiovascular exam: Present: regular rate and rhythm - GI/Abdominal GI/Abdominal exam: Present: normal bowel sounds, soft - Extremities Exam Extremities exam: Present: full ROM - Neurological Exam Neurological exam: Present: alert, oriented X3, CN II-XII intact - Psychiatric Psychiatric exam: Present: normal affect, normal mood - Skin Skin exam: Present: normal color, warm, dry Results - Labs CBC & BMP: 08/24/17 04:39 08/26/17 05:50 Lab Results: I have reviewed the past 24 hour labs
[2017-08-26] MEDS: MIRTAZAPINE 15 MG TABLET PO SCH (20:58)
[2017-08-26] MEDS: DONEPEZIL 5 MG TABLET PO SCH (20:58)
[2017-08-27] MEDS: DEXTROSE 5% NACL 0.9% 1,000 ML IV SCH ×2 (00:30→13:53)
--- NOTE | 2017-08-27 08:28 | Gastrointestinal Progress Note ---
Assessment and Plan (1) Epigastric pain Status: Acute Assessment and plan: 08/27-pain improved, tolerating diet. Continued mild nausea. Plan an addendum to followed by Dr. Rust. 08/26-Pain improved, nausea improved as well. Tolearting diet. Dulcolax prn. Plan and addendum to follow by Dr Rust. 08/23-epigastric pain slightly improved. Parents follow results were noted. Gastric emptying scan underway. Continue to monitor. Plan an addendum to followed by Dr. Rust. 08/22-no changes at this time. Awaiting reschedule barium swallow for today. Cardiology consult noted. Will order heating pad for neck pain/stiffness. Plan an addendum to follow Dr. Rust. 08/21-no changes in pain at this time. Awaiting barium swallow this morning. Plan an addendum to followed by Dr. Rust. 08/20-admitted with history of dysphagia and esophageal stricture in the past with recent dilation 3 weeks ago now with continued dysphagia, inability to keep anything down with nausea vomiting. History of multiple dilations in the past. No coffee-ground or hematemesis reports. We will continue to monitor at this time and consider repeat EGD. Plan an addendum to followed by Dr. Rust. Current Visit: Yes Gastroenterology - PN: Subj Interval history: CC: Epigastric pain/nausea Patient is seen, awake and alert lying in bed. States she is feeling much better and had an uneventful night. She is denying any epigastric pain. She was able to tolerate 2 out of 3 of her meals yesterday with only one small episode of vomiting. States she has had some off-and-on nausea but it is improved. She also states her neck pain is improved. She did not have a bowel movement yesterday however we will continue with the laxatives at this time. Abdomen is soft, nontender. ROS: Denies shortness of breath or chest pain Exam (Progress Note) - Constitutional Vitals: Period Temp Pulse Resp BP Sys/Argueta Pulse Ox Last 24 Hr 97.7 F-98.7 F 53-66 18-22 104-130/54-64 92-97 - Other Additional findings: General appearance: normal weight, no acute distress - Head Head exam: Present: normal inspection, normocephalic - Eye Eye exam: Present: other (lids and conjunctiva unremarkable). Absent: scleral icterus - ENT ENT exam: Present: normal exam, normal oropharynx - Neck Neck exam: Present: normal inspection - Respiratory Respiratory exam: Present: clear to auscultation bilaterally. Absent: rales, rhonchi, wheezes - Cardiovascular Cardiovascular exam: Present: regular rate and rhythm. Absent: diastolic murmur , JVD, systolic murmur - GI/Abdominal GI/Abdominal exam: Present: normal bowel sounds, soft. Absent: ascites, distended, mass, organomegaly, tenderness - Extremities Exam Extremities exam: Present: normal inspection, full ROM - Back Exam Back exam: Present: normal inspection - Neurological Exam Neurological exam: Present: alert, oriented X3 - Psychiatric Psychiatric exam: Present: normal affect, normal mood - Skin Skin exam: Present: normal color, warm, dry Results - Labs CBC & BMP: 08/24/17 04:39 08/26/17 05:50 Lab Results: I have reviewed the past 24 hour labs
[2017-08-27] MEDS: clonazePAM 0.5 MG TABLET PO SCH ×2 (08:47→21:08)
[2017-08-27] MEDS: ERYTHROMYCIN BASE 250 MG TABLET PO SCH ×3 (08:47→16:20)
[2017-08-27] MEDS: ENOXAPARIN 40 MG/0.4 ML SYRINGE SUBCUT SCH (08:47)
[2017-08-27] MEDS: GABAPENTIN 300 MG CAPSULE PO SCH ×3 (08:47→21:09)
[2017-08-27] MEDS: CYCLOBENZAPRINE 10 MG TABLET PO SCH ×2 (08:47→21:08)
[2017-08-27] MEDS: amLODIPine 10 MG TABLET PO SCH (08:47)
[2017-08-27] MEDS: PANTOPRAZOLE 40 MG TABLET PO SCH ×2 (08:47→21:07)
[2017-08-27] MEDS: ONDANSETRON 4 MG/2 ML VIAL IV PRN ×2 (09:14→21:01)
--- NOTE | 2017-08-27 09:32 | Hospitalist Progress Note ---
Assessment and Plan (1) Nausea & vomiting Status: Acute Assessment and plan: She continues to experience nausea. She has not experienced any vomiting today. She states that she has been able to tolerate her diet. Current Visit: Yes (2) Abdominal pain Status: Acute Assessment and plan: She denies any abdominal pain today. Current Visit: No (3) Gastroparesis Status: Acute Assessment and plan: She continues on erythromycin. She is being followed by gastroenterology. Current Visit: Yes Hospitalist: Subjective Interval history: She continues to experience nausea, but has not experienced any episodes of vomiting today. I discussed with her that we will continue her present diet and , if she tolerates it well today, she will be discharged tomorrow. Exam - Constitutional Vitals: Period Temp Pulse Resp BP Sys/Argueta Pulse Ox Last 24 Hr 97.7 F-98.7 F 53-66 18-22 104-130/54-64 92-97 General appearance: no acute distress - Head Head exam: Present: normal inspection - Neck Neck exam: Present: normal inspection - Respiratory Respiratory exam: Present: clear to auscultation bilaterally - Cardiovascular Cardiovascular exam: Present: regular rate and rhythm - GI/Abdominal GI/Abdominal exam: Present: normal bowel sounds, soft, other (Nontender with no palpable masses or hepatosplenomegaly.) - Extremities Exam Extremities exam: Present: normal inspection - Skin Skin exam: Present: normal color, warm, intact Results - Labs CBC & BMP: 08/24/17 04:39 08/26/17 05:50
[2017-08-27] MEDS: BISACODYL 5 MG TABLET PO PRN (11:04)
[2017-08-27] MEDS: DOCUSATE SODIUM 100 MG CAPSULE PO PRN (11:05)
[2017-08-27] MEDS: DONEPEZIL 5 MG TABLET PO SCH (21:07)
[2017-08-27] MEDS: MIRTAZAPINE 15 MG TABLET PO SCH (21:09)
[2017-08-28] MEDS: DEXTROSE 5% NACL 0.9% 1,000 ML IV SCH (03:15)
--- NOTE | 2017-08-28 08:39 | Discharge Summary ---
Hospital Course - Hospital Course Hospital Course: Called to the ER for Ms. Croft who is a 71 year old female that presented to the ER tonight complaining of epigastric pain that started earlier this month. She was admitted here and was found to have esophageal strictures. She was dilated and discharged home. She states she felt good for three days and then the pain returned and has continued to get worse. She went to [facility] last night and they told her that it was her GERD but if it returned to come back to [facility]. She received a GI cocktail, Protonix, and Zofran in the ER but her symptoms did not improve. Blood work was negative except for troponin 0.075. She was slightly elevated on her admission earlier this month, but trended down. She states she has had vomiting right after she eats for the last three days and has not been able to keep anything down. She has a history of dementia, diverticulitis, GERD, pancreatitis, gastric ulcers, mild esophagitis, jejunal AVMs, kidney stones, neuropathy, anxiety, cholecystectomy, lithotripsy, tonsillectomy, left knee replacement, HTN, appendectomy, and gallstones. Ms. Croft is a 71 year old female who was admitted to the hospital last night with complaints of epigastric pain. Patient has a prior history of peptic ulcer disease, hypertension, dementia, GERD. Patient was discharged from our facility approximately 3 weeks ago after inpatient stay for complaints of dysphagia and epigastric abdominal pain. During that inpatient stay, she underwent EGD with findings of distal esophageal stricture with dilation as well as hiatal hernia. Patient has had multiple dilations in the past and she states has helped however she states approximately 1 week after discharge this time, epigastric pain and dysphagia returned. Patient states that when she eats , at times the food will not go down at other times she will have onset of pain in the epigastric region. She states that she has difficulty with her pills as well but denies trouble with liquids. Patient denies any pain with swallowing however does report early satiety. She also has an increasing GERD as well as dyspepsia recently. Patient denies any melena or hematochezia or changes in her bowel habit. She does state that she has at times episodes of nausea and vomiting after she eats as well as she has to regurgitate her food. She did state that prior to admission here she went to [facility] in which she was given a GI cocktail and sent home. She states that this did not help her pain. She was also noted to have a mildly elevated troponin level which is trending down at this time. She states at this point in time she is unable to keep anything down and has not eaten in several days due to this. She denies any fever, chills or recent weight loss associated with this. She denies any NSAID use. Ms. Croft is a 71 year old female with a history of GERD, gastric ulcers, hypertension, chronic back pain. Risk factors are significant for: age, obesity, sedentary lifestyle, hypertension, family history of CAD. Her mother had several MIs in the past, mostly in her 70s. She has a long history of epigastric pain, many times related to NSAID use. She has undergone left heart catheterization in the past by Dr. Galloway on 11/09/14 and was found to have no significant obstructive disease. Echocardiogram done in July of this year with EF 50-55%. Ms. Croft presented to the emergency department on August 20 with complaints of epigastric pain for about 1 month. She was admitted found to have esophageal strictures, was dilated, and discharged home. Said the pain returned after about 3 days and has continued to get worse. The pain seems to radiate into her back. This pain is not affected by activity. She also reports nausea and vomiting anytime she eats. She has been short of breath for the last 2 weeks. She denies any chest pain, palpitations, or dizziness. Initial troponin was trivially elevated at 0.075, these have remained flat as subsequent troponins were 0.067 and 0.077. EKG showed sinus rhythm with heart rate of 61 and was otherwise unremarkable. Chest x-ray was without evidence of any acute process. Patient was seen in consultation by cardiology who felt the elevations of the serum troponins to be trivial and nondiagnostic. They recommended no further evaluation. Patient was seen in consultation by gastroenterology. A barium swallow demonstrated no evidence of recurrent stricture. Her symptoms were felt to be most compatible with gastroparesis. She was begun on erythromycin therapy, improving significantly during the remainder of her hospitalization. At the time of her discharge she was experiencing no nausea or vomiting and was eating without difficulty. Diagnosis - Discharge Diagnosis (1) Nausea & vomiting Status: Acute (2) Abdominal pain Status: Acute (3) Gastroparesis Status: Chronic (4) Chest pain Status: Acute (5) GERD (gastroesophageal reflux disease) Status: Chronic (6) History of kidney stones Status: Chronic (7) Esophageal stricture Status: Resolved (8) s/p EGD with dilation Status: Resolved Discharge Plan - Discharge Data Disposition: Disch To Home/Self Care Condition at Discharge: Stable Discharge Diet: advance to your usual diet Activity: resume usual activities as tolerated - Discharge Medications New Mirtazapine [Remeron] 7.5 mg PO BEDTIME tablet amLODIPine [Norvasc] 10 mg PO DAILY #30 tablet Erythromycin Base 250 mg PO TID W/MEALS #21 tablet Continue clonazePAM [Clonazepam] 1 mg PO BID Donepezil [Aricept] 5 mg PO BEDTIME Amlodipine Besylate 10 mg DAILY HYDROcodone/ACETAMIN 10-325 [[place] 10-325] 1 tablet PO Q4-6H PRN #20 tablet PRN Reason: Pain Severe (8-10) Pantoprazole Tab [Protonix Tab] 40 mg PO BID #60 tablet Gabapentin Cap/Tab [Neurontin Cap/Tab] 300 mg PO TID traZODone [Desyrel] 50 mg PO DAILY Promethazine Tab [Phenergan Tab] 12.5 mg PO Q6H #30 tablet - Follow Up or Referral - Forms/Instructions Exam - Constitutional Vitals: Period Temp Pulse Resp BP Sys/Argueta Pulse Ox Last 24 Hr 97.6 F-99.8 F 62-94 17-20 103-140/53-68 91-97 DS: Provider Date of admission: 08/20/17 02:17 Primary care physician: Gustavo Lancaster Attending physician on admission: Maikel Ramsey MD Consults: 08/20/17 06:30 Consult to Physician [CONS] Routine Comment: Pt. known to you, strictures Consulting Provider: Leroy Rust Consulting Provider Notified: No When should Consulting Provider be notified: In am Person Notified: URIAH GUEVARA Date Notified: 08/20/17 Time Notified: 11:25 08/24/17 13:19 Consult to Dietitian [CONS] Routine Reason for Dietitian: Other Consult Comment: education on low residual food choices Consult to Physical Therapy [CONS] Routine Reason for Physical Therapy: Other Consult Comment: neck pain; ROM exercise 08/26/17 16:22 Consult to Wound Care - [place] [CONS] Routine Reason for Wound Care: Wound Care Management Consult Comment: blister to right chest(see notes) Discharging clinician: Carrillo Hammonds
[2017-08-28] MEDS: amLODIPine 10 MG TABLET PO SCH (08:48)
[2017-08-28] MEDS: GABAPENTIN 300 MG CAPSULE PO SCH (08:49)
[2017-08-28] MEDS: ERYTHROMYCIN BASE 250 MG TABLET PO SCH (08:49)
[2017-08-28] MEDS: CYCLOBENZAPRINE 10 MG TABLET PO SCH (08:49)
[2017-08-28] MEDS: DOCUSATE SODIUM 100 MG CAPSULE PO PRN (08:49)
[2017-08-28] MEDS: clonazePAM 0.5 MG TABLET PO SCH (08:49)
[2017-08-28] MEDS: ENOXAPARIN 40 MG/0.4 ML SYRINGE SUBCUT SCH (08:49)
[2017-08-28] MEDS: PANTOPRAZOLE 40 MG TABLET PO SCH (08:49)
[2017-08-28 09:35] VITALS: BP 108/55
== END 2017-08-28 12:04 | disposition home or self-care (01) | DRG 392 ==
LOC: EDBD → EDUNIT# → N.ED 23:34 → SUATTDRO 08-20 02:17 → N.EDINP 08-20 02:17 → N.5E 08-20 02:53
PROVIDERS: ADMIT Internal Medicine

== ENCOUNTER 2017-10-13 23:34 | Inpatient (IN) ==
[2017-10-14] MEDS ORDERED: ONDANSETRON 4 MG/2 ML VIAL IV STA (00:16)
[2017-10-14] MEDS ORDERED: HYDROmorphone 2 MG/1 ML VIAL IV STA ×3 (00:16→04:55)
[2017-10-14] MEDS ORDERED: SODIUM CHLORIDE 0.9% 2,000 ML IV ONE ×2 (00:18→04:50)
[2017-10-14 02:33] LABS: Basophils % 0.4 % (0.0-0.8); Eosinophils # 0.1 10*3/uL (0.0-0.87); Eosinophils % 2.2 % (0.00-10.9); Hemoglobin 12.1 GM/DL (12.0-16.0); Immature Granulocytes % 0.2 %; Immature Granulocytes Absolute 0.01 #; Lymphocytes # 2.6 10*3/uL (1.4-4.0); Lymphocytes % 53.3 % (21.3-54.2); Mean Corpuscular HGB Conc 34.6 GM/DL (32-36); Mean Corpuscular Hemoglobin 33 PG (27-34); Mean Corpuscular Volume 96.2 FL (87-102); Mean Platelet Volume 9.9 FL (9.6-12.0); Monocytes # 0.3 10*3/uL (0.11-0.8); Monocytes % 6.9 % (1.7-12.7); Neutrophils # 1.8 10*3/uL (1.4-7.4); Platelet Count 420 T/CUMM (130-400); Red Blood Count 3.64 MC/CUMM (3.8-5.5); Red Cell Distribution Width 13.7 % (9.3-17.3); White Blood Count 4.9 T/CUMM (4-12)
[2017-10-14] MEDS ORDERED: ONDANSETRON 4 MG/2 ML VIAL ONE (02:33)
[2017-10-14] MEDS ORDERED: HYDROmorphone 2 MG/1 ML VIAL ONE ×2 (02:33→03:22)
[2017-10-14 03:02] LABS: Eosinophils 1 % (0-10); Lymphocytes 52 % (20-55); Segmented Neutrophils 41 % (50-85)
[2017-10-14 03:03] LABS: Platelet Estimate Normal
[2017-10-14 03:04] LABS: Total Cells Counted 100
[2017-10-14 03:29] LABS: Albumin 3.5 G/DL (3.4-5.0); Bilirubin,Total 0.5 MG/DL (0.2-1.0); Calcium 9.6 MG/DL (8.5-10.1); Osmolality,Calculated 281.3 MOS/KG (273-304); Potassium 2.9 MMOL/L (3.5-5.1); Total Protein 7.2 G/DL (6.4-8.3)
[2017-10-14 03:35] LABS: Troponin I Only 0.082 NG/ML (0.00-0.045)
[2017-10-14] MEDS: SODIUM CHLORIDE 0.9% 1,000 ML IV SCH (08:30)
[2017-10-14] MEDS: POTASSIUM CHLORIDE RIDER 10 MEQ in PREMIX 1 EACH IV PRN (08:44)
[2017-10-14] MEDS: HYDROmorphone 2 MG/1 ML VIAL IV PRN ×4 (08:45→20:52)
[2017-10-14] MEDS: PANTOPRAZOLE 40 MG VIAL IV SCH ×2 (08:49→21:08)
[2017-10-14] MEDS: amLODIPine 10 MG TABLET PO SCH (08:50)
[2017-10-14] MEDS: GABAPENTIN 300 MG CAPSULE PO SCH ×3 (08:51→21:21)
[2017-10-14] MEDS: clonazePAM 0.5 MG TABLET PO SCH ×2 (08:51→21:21)
[2017-10-14] MEDS: PIPERACILLIN/TAZOBACTAM 3,375 MG in SODIUM CHLORIDE 0.9% 100 ML IV SCH ×2 (09:37→16:47)
[2017-10-14] MEDS: ENOXAPARIN 40 MG/0.4 ML SYRINGE SUBCUT SCH (09:40)
[2017-10-14] MEDS: DONEPEZIL 5 MG TABLET PO SCH (21:21)
[2017-10-15] MEDS: HYDROmorphone 2 MG/1 ML VIAL IV PRN ×4 (01:35→17:47)
[2017-10-15] MEDS: PIPERACILLIN/TAZOBACTAM 3,375 MG in SODIUM CHLORIDE 0.9% 100 ML IV SCH ×3 (01:36→16:07)
[2017-10-15] MEDS: ONDANSETRON 4 MG/2 ML VIAL IV PRN ×3 (03:58→13:50)
[2017-10-15 05:59] LABS: Basophils % 0.5 % (0.0-0.8); Eosinophils # 0.3 10*3/uL (0.0-0.87); Eosinophils % 6.6 % (0.00-10.9); Lymphocytes # 2.2 10*3/uL (1.4-4.0); Lymphocytes % 53.3 % (21.3-54.2); Mean Corpuscular HGB Conc 33.7 GM/DL (32-36); Mean Corpuscular Hemoglobin 33 PG (27-34); Mean Corpuscular Volume 98.4 FL (87-102); Mean Platelet Volume 10.8 FL (9.6-12.0); Monocytes # 0.4 10*3/uL (0.11-0.8); Monocytes % 8.6 % (1.7-12.7); Neutrophils # 1.3 10*3/uL (1.4-7.4); Platelet Count 361 T/CUMM (130-400); Red Blood Count 3.05 MC/CUMM (3.8-5.5); Red Cell Distribution Width 13.9 % (9.3-17.3); White Blood Count 4.1 T/CUMM (4-12)
[2017-10-15 06:16] LABS: Hemoglobin 10.1 GM/DL (12.0-16.0)
[2017-10-15] MEDS: SODIUM CHLORIDE 0.9% 1,000 ML IV SCH ×2 (06:22→21:09)
[2017-10-15 06:25] LABS: Bilirubin,Total 1.1 MG/DL (0.2-1.0); Calcium 8.8 MG/DL (8.5-10.1); Osmolality,Calculated 278.3 MOS/KG (273-304); Potassium 3.3 MMOL/L (3.5-5.1); Total Protein 5.8 G/DL (6.4-8.3)
[2017-10-15 06:28] LABS: Atypical Lymphocytes Few; Eosinophils 8 % (0-10); Hypochromasia 1+; Lymphocytes 60 % (20-55); Segmented Neutrophils 26 % (50-85); Total Cells Counted 100
[2017-10-15 06:29] LABS: Platelet Estimate Normal
[2017-10-15] MEDS: clonazePAM 0.5 MG TABLET PO SCH ×2 (08:24→21:08)
[2017-10-15] MEDS: amLODIPine 10 MG TABLET PO SCH (08:24)
[2017-10-15] MEDS: PANTOPRAZOLE 40 MG VIAL IV SCH ×2 (08:24→21:08)
[2017-10-15] MEDS: GABAPENTIN 300 MG CAPSULE PO SCH ×3 (08:24→21:08)
[2017-10-15] MEDS: ENOXAPARIN 40 MG/0.4 ML SYRINGE SUBCUT SCH (10:40)
[2017-10-15] MEDS ORDERED: ONDANSETRON 4 MG/2 ML VIAL ONE (13:47)
[2017-10-15] MEDS ORDERED: LIDOCAINE 100 MG/5 ML SYRINGE ONE (15:26)
[2017-10-15] MEDS ORDERED: PROPOFOL 200 MG/20 ML VIAL IV ONE (15:26)
[2017-10-15] MEDS ORDERED: GLYCOPYRROLATE 0.4 MG/2 ML VIAL ONE (15:26)
[2017-10-15] MEDS: DONEPEZIL 5 MG TABLET PO SCH (21:08)
[2017-10-16] MEDS: PIPERACILLIN/TAZOBACTAM 3,375 MG in SODIUM CHLORIDE 0.9% 100 ML IV SCH ×3 (01:55→17:44)
[2017-10-16] MEDS: POTASSIUM CHLORIDE RIDER 10 MEQ in PREMIX 1 EACH IV PRN ×4 (03:02→05:55)
[2017-10-16] MEDS: ONDANSETRON 4 MG/2 ML VIAL IV PRN (03:03)
[2017-10-16] MEDS: clonazePAM 0.5 MG TABLET PO SCH ×2 (08:34→20:38)
[2017-10-16] MEDS: GABAPENTIN 300 MG CAPSULE PO SCH ×3 (08:35→20:38)
[2017-10-16] MEDS: ENOXAPARIN 40 MG/0.4 ML SYRINGE SUBCUT SCH (08:35)
[2017-10-16] MEDS: amLODIPine 10 MG TABLET PO SCH (08:36)
[2017-10-16] MEDS: PANTOPRAZOLE 40 MG VIAL IV SCH ×2 (08:36→20:38)
[2017-10-16] MEDS: DONEPEZIL 5 MG TABLET PO SCH (20:38)
[2017-10-16] MEDS: SODIUM CHLORIDE 0.9% 1,000 ML IV SCH (20:48)
[2017-10-17] MEDS: SODIUM CHLORIDE 0.9% 1,000 ML IV SCH
[2017-10-17] MEDS: PIPERACILLIN/TAZOBACTAM 3,375 MG in SODIUM CHLORIDE 0.9% 100 ML IV SCH ×3 (01:58→16:50)
[2017-10-17] MEDS: HYDROmorphone 2 MG/1 ML VIAL IV PRN ×2 (04:01→20:33)
[2017-10-17] MEDS: ONDANSETRON 4 MG/2 ML VIAL IV PRN ×4 (04:10→16:51)
[2017-10-17] MEDS: ENOXAPARIN 40 MG/0.4 ML SYRINGE SUBCUT SCH (08:07)
[2017-10-17] MEDS: clonazePAM 0.5 MG TABLET PO SCH ×2 (08:07→20:39)
[2017-10-17] MEDS: GABAPENTIN 300 MG CAPSULE PO SCH ×3 (08:08→20:40)
[2017-10-17] MEDS: PANTOPRAZOLE 40 MG VIAL IV SCH ×2 (08:08→20:37)
[2017-10-17] MEDS: amLODIPine 10 MG TABLET PO SCH (08:08)
[2017-10-17] MEDS: DONEPEZIL 5 MG TABLET PO SCH (20:40)
[2017-10-18] MEDS: PIPERACILLIN/TAZOBACTAM 3,375 MG in SODIUM CHLORIDE 0.9% 100 ML IV SCH ×2 (01:30→11:20)
[2017-10-18] MEDS: ONDANSETRON 4 MG/2 ML VIAL IV PRN ×3 (02:07→12:02)
[2017-10-18] MEDS: HYDROmorphone 2 MG/1 ML VIAL IV PRN ×3 (02:09→12:06)
[2017-10-18] MEDS: SODIUM CHLORIDE 0.9% 1,000 ML IV SCH ×2 (03:00→07:58)
[2017-10-18 05:43] LABS: Basophils % 0.4 % (0.0-0.8); Eosinophils # 0.3 10*3/uL (0.0-0.87); Eosinophils % 5.9 % (0.00-10.9); Hematocrit 28.1 VOL% (35.7-47.0); Hemoglobin 9.3 GM/DL (12.0-16.0); Immature Granulocytes % 0.2 %; Immature Granulocytes Absolute 0.01 #; Lymphocytes # 2.3 10*3/uL (1.4-4.0); Lymphocytes % 42.9 % (21.3-54.2); Mean Corpuscular HGB Conc 33.1 GM/DL (32-36); Mean Corpuscular Hemoglobin 33 PG (27-34); Mean Corpuscular Volume 99.3 FL (87-102); Monocytes # 0.4 10*3/uL (0.11-0.8); Monocytes % 6.7 % (1.7-12.7); Neutrophils # 2.3 10*3/uL (1.4-7.4); Neutrophils % 43.9 % (38.7-73.9); Platelet Count 314 T/CUMM (130-400); Red Blood Count 2.83 MC/CUMM (3.8-5.5); Red Cell Distribution Width 13.7 % (9.3-17.3); White Blood Count 5.2 T/CUMM (4-12)
[2017-10-18 06:14] LABS: Calcium 8.4 MG/DL (8.5-10.1); Osmolality,Calculated 283.8 MOS/KG (273-304); Potassium 3.5 MMOL/L (3.5-5.1)
[2017-10-18] MEDS: PANTOPRAZOLE 40 MG VIAL IV SCH (11:21)
[2017-10-18] MEDS: ENOXAPARIN 40 MG/0.4 ML SYRINGE SUBCUT SCH (11:25)
[2017-10-18] MEDS ORDERED: LOPERAMIDE 2 MG CAPSULE PO PRN (12:07)
[2017-10-18 12:18] VITALS: BP 118/56
[2017-10-18] MEDS: clonazePAM 0.5 MG TABLET PO SCH (13:22)
[2017-10-18] MEDS: amLODIPine 10 MG TABLET PO SCH (13:22)
[2017-10-18] MEDS: GABAPENTIN 300 MG CAPSULE PO SCH ×2 (13:23→14:45)
== END 2017-10-18 16:05 | disposition home or self-care (01) | DRG 392 ==
LOC: EDBD → EDUNIT# → N.ED 23:34 → N.EDINP 10-14 06:09 → N.2E 10-14 06:47
PROVIDERS: ADMIT Hospitalist; ATTEND Hospitalist

== ENCOUNTER 2018-08-10 21:10 | Inpatient (IN) ==
[2018-08-10 21:54] LABS: Calcium 10.1 MG/DL (8.5-10.1); Osmolality,Calculated 290.7 MOS/KG (273-304); Potassium 3.6 MMOL/L (3.5-5.1)
[2018-08-10] MEDS ORDERED: SODIUM CHLORIDE 0.9% 1,000 ML IV STA (22:05)
[2018-08-10] MEDS ORDERED: HALOPERIDOL 5 MG/ML AMP IV STA (22:07)
[2018-08-10] MEDS ORDERED: KETOROLAC 30 MG/1 ML VIAL IV STA (22:08)
[2018-08-10] MEDS ORDERED: LORazepam 2 MG/1 ML VIAL IV STA (22:08)
[2018-08-10 22:18] LABS: Basophils % 0.3 % (0.0-0.8); Hematocrit 36.9 VOL% (35.7-47.0); Hemoglobin 12.6 GM/DL (12.0-16.0); Immature Granulocytes % 0.4 %; Immature Granulocytes Absolute 0.03 #; Lymphocytes # 0.6 10*3/uL (1.4-4.0); Lymphocytes % 7.8 % (21.3-54.2); Mean Corpuscular HGB Conc 34.1 GM/DL (32-36); Mean Corpuscular Hemoglobin 36 PG (27-34); Mean Corpuscular Volume 105.1 FL (87-102); Mean Platelet Volume 10.2 FL (9.6-12.0); Monocytes # 0.2 10*3/uL (0.11-0.8); Monocytes % 2.9 % (1.7-12.7); Neutrophils % 88.6 % (38.7-73.9); Platelet Count 276 T/CUMM (130-400); Red Blood Count 3.51 MC/CUMM (3.8-5.5); Red Cell Distribution Width 13.7 % (9.3-17.3); White Blood Count 7.9 T/CUMM (4-12)
[2018-08-10 22:39] LABS: Alanine Aminotransferase 14 U/L (13-56); Alkaline Phosphatase 104 U/L (45-117); Aspartate Amino Transferase 17 U/L (0-37)
[2018-08-10 22:40] LABS: Albumin 3.9 G/DL (3.4-5.0); Bilirubin,Total < 0.39 MG/DL (0.2-1.0); Blood Urea Nitrogen 14 MG/DL (7-18); Glucose 138 MG/DL (74-106); Osmolality,Calculated 288.8 MOS/KG (273-304); Potassium 3.8 MMOL/L (3.5-5.1); Sodium 144 MMOL/L (136-145); Total Protein 7.8 G/DL (6.4-8.3)
[2018-08-10] MEDS ORDERED: ONDANSETRON 4 MG/2 ML VIAL ONE (23:30)
[2018-08-10] MEDS ORDERED: ONDANSETRON 4 MG/2 ML VIAL IV STA (23:31)
[2018-08-11] MEDS ORDERED: PROMETHAZINE 25 MG/1 ML VIAL IM PRN (02:30)
[2018-08-11] MEDS ORDERED: diphenhydrAMINE CAP 25 MG CAPSULE PO PRN (02:30)
[2018-08-11] MEDS ORDERED: MORPHINE 4 MG/1 ML VIAL IV STA (02:40)
[2018-08-11] MEDS: SODIUM CHLORIDE 0.9% 1,000 ML IV SCH ×3 (02:59→18:15)
[2018-08-11] MEDS: METOCLOPRAMIDE 10 MG/2 ML VIAL IV SCH ×4 (05:05→23:59)
[2018-08-11 05:34] LABS: Basophils % 0.2 % (0.0-0.8); Hematocrit 31.9 VOL% (35.7-47.0); Immature Granulocytes % 0.5 %; Immature Granulocytes Absolute 0.03 #; Lymphocytes # 0.8 10*3/uL (1.4-4.0); Lymphocytes % 11.4 % (21.3-54.2); Mean Corpuscular HGB Conc 34.5 GM/DL (32-36); Mean Corpuscular Hemoglobin 36 PG (27-34); Mean Corpuscular Volume 104.6 FL (87-102); Mean Platelet Volume 10.7 FL (9.6-12.0); Monocytes # 0.2 10*3/uL (0.11-0.8); Monocytes % 2.4 % (1.7-12.7); Neutrophils # 5.6 10*3/uL (1.4-7.4); Neutrophils % 85.5 % (38.7-73.9); Platelet Count 250 T/CUMM (130-400); Red Blood Count 3.05 MC/CUMM (3.8-5.5); Red Cell Distribution Width 13.6 % (9.3-17.3); White Blood Count 6.6 T/CUMM (4-12)
[2018-08-11 05:58] LABS: Albumin 3.4 G/DL (3.4-5.0); Bilirubin,Total 0.4 MG/DL (0.2-1.0); Calcium 9.1 MG/DL (8.5-10.1); Osmolality,Calculated 286.8 MOS/KG (273-304); Potassium 3.3 MMOL/L (3.5-5.1); Total Protein 6.9 G/DL (6.4-8.3)
[2018-08-11] MEDS ORDERED: MAGNESIUM SULF RIDER 4 GM in PREMIX 1 EACH IV PRN (07:37)
[2018-08-11] MEDS ORDERED: MAGNESIUM SULF RIDER 2 GM in PREMIX 1 EACH IV PRN (07:37)
[2018-08-11] MEDS: MORPHINE 4 MG/1 ML VIAL IV PRN ×5 (07:50→23:58)
[2018-08-11] MEDS: POTASSIUM CHLORIDE 20 MEQ TABLET PO PRN ×3 (08:41→13:15)
[2018-08-11] MEDS: PANTOPRAZOLE 40 MG VIAL IV SCH ×2 (08:42→20:16)
[2018-08-11 19:55] LABS: Apearance,Urine CLEAR (Clear); Bilirubin,Urine Negative (Negative); Blood, Urine Negative (Negative); Glucose,Urine (UA) Negative (Negative); Ketones,Urine 5 mg/dL (Negative); Nitrite,Urine Negative (Negative); Protein,Urine Negative; RBC,Urine <1 /HPF (0-4); Urine Color Yellow (Yellow); Urine Specific Gravity 1.015 (1.001-1.035); Urine Urobilinogen < 2.0 EU/DL (0.2-1.0); WBC,Urine 1 /HPF (0-6)
[2018-08-12] MEDS: SODIUM CHLORIDE 0.9% 1,000 ML IV SCH ×2 (03:00→10:16)
[2018-08-12] MEDS: MORPHINE 4 MG/1 ML VIAL IV PRN ×5 (03:52→21:02)
[2018-08-12 04:12] LABS: Basophils % 0.5 % (0.0-0.8); Eosinophils # 0.1 10*3/uL (0.0-0.87); Eosinophils % 1.5 % (0.00-10.9); Hemoglobin 9.9 GM/DL (12.0-16.0); Immature Granulocytes % 0.2 %; Immature Granulocytes Absolute 0.01 #; Lymphocytes # 2.7 10*3/uL (1.4-4.0); Lymphocytes % 46.2 % (21.3-54.2); Mean Corpuscular Hemoglobin 36 PG (27-34); Mean Corpuscular Volume 107.5 FL (87-102); Mean Platelet Volume 10.5 FL (9.6-12.0); Monocytes # 0.4 10*3/uL (0.11-0.8); Monocytes % 7.5 % (1.7-12.7); Neutrophils # 2.6 10*3/uL (1.4-7.4); Neutrophils % 44.1 % (38.7-73.9); Platelet Count 229 T/CUMM (130-400); Red Blood Count 2.79 MC/CUMM (3.8-5.5); Red Cell Distribution Width 14.1 % (9.3-17.3); White Blood Count 5.8 T/CUMM (4-12)
[2018-08-12 04:42] LABS: Calcium 8.3 MG/DL (8.5-10.1); Osmolality,Calculated 284.7 MOS/KG (273-304); Potassium 3.8 MMOL/L (3.5-5.1)
[2018-08-12] MEDS: METOCLOPRAMIDE 10 MG/2 ML VIAL IV SCH ×4 (05:34→23:37)
[2018-08-12] MEDS: PANTOPRAZOLE 40 MG VIAL IV SCH ×2 (08:18→20:32)
[2018-08-12] MEDS ORDERED: PROPOFOL 200 MG/20 ML VIAL IV ONE (11:02)
[2018-08-12] MEDS ORDERED: LIDOCAINE 1% 5 ML VIAL ONE (11:02)
[2018-08-12] MEDS ORDERED: ONDANSETRON 4 MG/2 ML VIAL ONE ×2 (12:48→14:20)
[2018-08-12] MEDS: ONDANSETRON 4 MG/2 ML VIAL IV PRN ×3 (12:52→23:37)
[2018-08-13] MEDS: SODIUM CHLORIDE 0.9% 1,000 ML IV SCH ×3 (00:15→20:23)
[2018-08-13] MEDS: MORPHINE 4 MG/1 ML VIAL IV PRN ×6 (01:03→21:50)
[2018-08-13] MEDS: METOCLOPRAMIDE 10 MG/2 ML VIAL IV SCH ×3 (05:30→17:26)
[2018-08-13] MEDS: PANTOPRAZOLE 40 MG VIAL IV SCH ×2 (09:21→20:23)
[2018-08-13] MEDS: ONDANSETRON 4 MG/2 ML VIAL IV PRN ×3 (09:22→18:32)
[2018-08-14] MEDS: METOCLOPRAMIDE 10 MG/2 ML VIAL IV SCH ×2 (00:47→06:29)
[2018-08-14] MEDS: MORPHINE 4 MG/1 ML VIAL IV PRN ×5 (02:24→20:23)
[2018-08-14] MEDS: SODIUM CHLORIDE 0.9% 1,000 ML IV SCH ×3 (04:16→20:28)
[2018-08-14] MEDS: PANTOPRAZOLE 40 MG VIAL IV SCH ×2 (09:47→20:18)
[2018-08-14] MEDS: POTASSIUM CHLORIDE 20 MEQ TABLET PO PRN (14:53)
[2018-08-14] MEDS: GABAPENTIN 300 MG CAPSULE PO SCH ×2 (14:53→20:18)
[2018-08-14] MEDS: amLODIPine 10 MG TABLET PO SCH (14:54)
[2018-08-14] MEDS: clonazePAM 0.5 MG TABLET PO SCH (20:18)
[2018-08-14] MEDS ORDERED: traZODone 50 MG TABLET PO SCH (21:00)
[2018-08-14] MEDS ORDERED: MIRTAZAPINE 15 MG TABLET PO SCH (21:00)
[2018-08-14] MEDS ORDERED: DONEPEZIL 5 MG TABLET PO SCH (21:00)
[2018-08-15] MEDS: MORPHINE 4 MG/1 ML VIAL IV PRN ×2 (02:53→08:10)
[2018-08-15] MEDS: SODIUM CHLORIDE 0.9% 1,000 ML IV SCH ×2 (04:33→12:05)
[2018-08-15] MEDS: PANTOPRAZOLE 40 MG VIAL IV SCH (08:03)
[2018-08-15] MEDS: GABAPENTIN 300 MG CAPSULE PO SCH (08:09)
[2018-08-15] MEDS: amLODIPine 10 MG TABLET PO SCH (08:09)
[2018-08-15] MEDS: clonazePAM 0.5 MG TABLET PO SCH (08:09)
[2018-08-15 11:35] VITALS: BP 139/78
== END 2018-08-15 12:20 | disposition home or self-care (01) | DRG 384 ==
LOC: EDUNIT# → EDBD → N.EDINP 21:10 → N.ED 21:10 → N.2E 08-11 03:11

== ENCOUNTER 2018-11-16 18:59 | Inpatient (IN) ==
[2018-11-16] MEDS ORDERED: ALUM/MAG/SIMETH/LIDO VISC 1:1 30 ML BOTTLE PO STA (19:25)
[2018-11-16] MEDS ORDERED: MORPHINE 4 MG/1 ML VIAL ONE (21:11)
[2018-11-16] MEDS ORDERED: ONDANSETRON 4 MG/2 ML VIAL ONE (21:11)
[2018-11-16] MEDS ORDERED: MORPHINE 4 MG/1 ML VIAL IV STA (21:21)
[2018-11-16] MEDS ORDERED: ONDANSETRON 4 MG/2 ML VIAL IV STA (21:22)
[2018-11-16 21:58] LABS: Basophils % 0.2 % (0.0-0.8); Eosinophils % 0.4 % (0.00-10.9); Hematocrit 35.3 VOL% (35.7-47.0); Hemoglobin 11.5 GM/DL (12.0-16.0); Immature Granulocytes % 0.2 %; Immature Granulocytes Absolute 0.01 #; Lymphocytes # 1.9 10*3/uL (1.4-4.0); Lymphocytes % 40.7 % (21.3-54.2); Mean Corpuscular HGB Conc 32.6 GM/DL (32-36); Mean Corpuscular Hemoglobin 34 PG (27-34); Mean Corpuscular Volume 105.4 FL (87-102); Mean Platelet Volume 10.4 FL (9.6-12.0); Monocytes # 0.4 10*3/uL (0.11-0.8); Monocytes % 7.5 % (1.7-12.7); Neutrophils # 2.4 10*3/uL (1.4-7.4); Platelet Count 309 T/CUMM (130-400); Red Blood Count 3.35 MC/CUMM (3.8-5.5); Red Cell Distribution Width 13.8 % (9.3-17.3); White Blood Count 4.7 T/CUMM (4-12)
[2018-11-16] MEDS ORDERED: LACTATED RINGERS 1,000 ML IV ONE (22:10)
[2018-11-16 22:19] LABS: Albumin 3.7 G/DL (3.4-5.0); Bilirubin,Total 0.7 MG/DL (0.2-1.0); Calcium 9.4 MG/DL (8.5-10.1); Osmolality,Calculated 288.7 MOS/KG (273-304); Potassium 3.9 MMOL/L (3.5-5.1); Total Protein 6.8 G/DL (6.4-8.3)
[2018-11-17] MEDS ORDERED: diphenhydrAMINE CAP 25 MG CAPSULE PO PRN (00:30)
[2018-11-17] MEDS ORDERED: ZALEPLON 5 MG CAPSULE PO PRN (00:30)
[2018-11-17] MEDS ORDERED: METOCLOPRAMIDE 10 MG/2 ML VIAL IV PRN (00:30)
[2018-11-17] MEDS ORDERED: SODIUM CHLORIDE 0.9% 1,000 ML IV SCH (00:30)
[2018-11-17] MEDS ORDERED: MAGNESIUM SULF RIDER 2 GM in PREMIX 1 EACH IV PRN (00:30)
[2018-11-17] MEDS ORDERED: MAGNESIUM SULF RIDER 4 GM in PREMIX 1 EACH IV PRN (00:30)
[2018-11-17] MEDS ORDERED: NICOTINE 21 MG/24 HR PATCH TRANSDERM PRN (00:30)
[2018-11-17 01:45] LABS: Basophils % 0.4 % (0.0-0.8); Eosinophils % 0.8 % (0.00-10.9); Hematocrit 33.5 VOL% (35.7-47.0); Hemoglobin 11.1 GM/DL (12.0-16.0); Immature Granulocytes % 0.2 %; Immature Granulocytes Absolute 0.01 #; Lymphocytes % 57.6 % (21.3-54.2); Mean Corpuscular HGB Conc 33.1 GM/DL (32-36); Mean Corpuscular Hemoglobin 35 PG (27-34); Mean Platelet Volume 10.1 FL (9.6-12.0); Monocytes # 0.4 10*3/uL (0.11-0.8); Monocytes % 7.8 % (1.7-12.7); Neutrophils # 1.7 10*3/uL (1.4-7.4); Neutrophils % 33.2 % (38.7-73.9); Platelet Count 285 T/CUMM (130-400); Red Blood Count 3.22 MC/CUMM (3.8-5.5); Red Cell Distribution Width 13.9 % (9.3-17.3); White Blood Count 5.2 T/CUMM (4-12)
[2018-11-17] MEDS: ONDANSETRON 4 MG/2 ML VIAL IV PRN ×2 (01:49→05:57)
[2018-11-17] MEDS: MORPHINE 4 MG/1 ML VIAL IV PRN ×4 (01:50→20:41)
[2018-11-17 02:06] LABS: Albumin 3.5 G/DL (3.4-5.0); Bilirubin,Total 0.6 MG/DL (0.2-1.0); Potassium 3.2 MMOL/L (3.5-5.1); Total Protein 6.9 G/DL (6.4-8.3)
[2018-11-17 02:12] LABS: Risk Ratio 2.87; Thyroid Stimulating Hormone 0.353 uIU/ml (0.358-3.74); VLDL CHOLESTEROL 19.2 MG/DL
[2018-11-17 02:28] LABS: Band Neutrophils 4 % (0-10); Eosinophils 2 % (0-10); Lymphocytes 48 % (20-55); Segmented Neutrophils 40 % (50-85); Total Cells Counted 100
[2018-11-17 02:30] LABS: Anisocytosis 1+; Hypochromasia Slight; Platelet Estimate Adequate
[2018-11-17] MEDS: POTASSIUM CHLORIDE 20 MEQ TABLET PO PRN ×4 (02:53→19:06)
[2018-11-17] MEDS: SODIUM CHLORIDE 0.9% 1,000 ML IV SCH (02:54)
[2018-11-17 04:12] LABS: Apearance,Urine Slightly Hazy (Clear); Bacteria,Urine Occasional /HPF (Few); Bilirubin,Urine Negative (Negative); Blood, Urine Negative (Negative); Glucose,Urine (UA) Negative (Negative); Ketones,Urine Negative (Negative); Mucus,Urine Few /LPF (Occasional); Nitrite,Urine Negative (Negative); Protein,Urine 30 MG/DL; RBC,Urine 2 /HPF (0-4); Squamous Epithelial Cell,Urine Occasional /HPF (0-10); Urine Color Amber (Yellow); Urine Urobilinogen < 2.0 EU/DL (0.2-1.0); WBC,Urine 54 /HPF (0-6)
[2018-11-17 04:51] LABS: Hematocrit 33.4 VOL% (35.7-47.0); Hemoglobin 10.7 GM/DL (12.0-16.0)
[2018-11-17] MEDS ORDERED: ENOXAPARIN 40 MG/0.4 ML SYRINGE SUBCUT SCH (09:00)
[2018-11-17] MEDS: PANTOPRAZOLE 40 MG VIAL IV SCH ×2 (09:00→20:25)
[2018-11-17] MEDS ORDERED: PANTOPRAZOLE 40 MG TABLET PO SCH (09:00)
[2018-11-17] MEDS: ASPIRIN EC 81 MG TABLET PO SCH (10:53)
[2018-11-17] MEDS: amLODIPine 10 MG TABLET PO SCH (10:53)
[2018-11-17] MEDS: GABAPENTIN 300 MG CAPSULE PO SCH ×3 (10:53→20:25)
[2018-11-17] MEDS: metroNIDAZOLE 500 MG TABLET PO SCH ×2 (16:09→21:33)
[2018-11-17] MEDS: LEVOFLOXACIN INJ 500 MG in PREMIX 1 EACH IV SCH (16:23)
[2018-11-17] MEDS: traZODone 50 MG TABLET PO SCH (20:24)
[2018-11-17] MEDS: MIRTAZAPINE 30 MG TABLET PO SCH (20:24)
[2018-11-17] MEDS ORDERED: DONEPEZIL 5 MG TABLET PO SCH (21:00)
[2018-11-18] MEDS: MORPHINE 4 MG/1 ML VIAL IV PRN ×4 (01:26→21:19)
[2018-11-18] MEDS: metroNIDAZOLE 500 MG TABLET PO SCH ×3 (05:58→21:21)
[2018-11-18] MEDS: SODIUM CHLORIDE 0.9% 1,000 ML IV SCH ×3 (06:30→22:42)
[2018-11-18] MEDS: PANTOPRAZOLE 40 MG VIAL IV SCH (09:10)
[2018-11-18] MEDS: amLODIPine 10 MG TABLET PO SCH (09:10)
[2018-11-18] MEDS: GABAPENTIN 300 MG CAPSULE PO SCH ×3 (09:10→20:49)
[2018-11-18] MEDS: ASPIRIN EC 81 MG TABLET PO SCH (09:12)
[2018-11-18] MEDS: LEVOFLOXACIN INJ 500 MG in PREMIX 1 EACH IV SCH (11:51)
[2018-11-18 14:24] LABS: Basophils % 0.5 % (0.0-0.8); Eosinophils # 0.1 10*3/uL (0.0-0.87); Eosinophils % 2.7 % (0.00-10.9); Hematocrit 31.1 VOL% (35.7-47.0); Hemoglobin 9.8 GM/DL (12.0-16.0); Immature Granulocytes % 0.2 %; Immature Granulocytes Absolute 0.01 #; Lymphocytes # 2.3 10*3/uL (1.4-4.0); Lymphocytes % 56.4 % (21.3-54.2); Mean Corpuscular HGB Conc 31.5 GM/DL (32-36); Mean Corpuscular Hemoglobin 34 PG (27-34); Mean Corpuscular Volume 109.1 FL (87-102); Mean Platelet Volume 10.7 FL (9.6-12.0); Monocytes # 0.4 10*3/uL (0.11-0.8); Monocytes % 8.7 % (1.7-12.7); Neutrophils # 1.3 10*3/uL (1.4-7.4); Neutrophils % 31.5 % (38.7-73.9); Platelet Count 222 T/CUMM (130-400); Red Blood Count 2.85 MC/CUMM (3.8-5.5)
[2018-11-18 15:16] LABS: Lymphocytes 47 % (20-55); Segmented Neutrophils 41 % (50-85); Total Cells Counted 100
[2018-11-18 15:17] LABS: Macrocytosis 1+
[2018-11-18 15:19] LABS: Platelet Estimate Decreased
[2018-11-18] MEDS: METOCLOPRAMIDE 10 MG/10 ML UDCUP PO SCH ×2 (16:48→20:49)
[2018-11-18] MEDS: PANTOPRAZOLE 40 MG TABLET PO SCH (20:49)
[2018-11-18] MEDS: traZODone 50 MG TABLET PO SCH (20:49)
[2018-11-18] MEDS: MIRTAZAPINE 30 MG TABLET PO SCH (20:49)
[2018-11-19] MEDS: MORPHINE 4 MG/1 ML VIAL IV PRN ×3 (01:38→10:41)
[2018-11-19] MEDS: SODIUM CHLORIDE 0.9% 1,000 ML IV SCH (02:11)
[2018-11-19] MEDS: metroNIDAZOLE 500 MG TABLET PO SCH (06:12)
[2018-11-19 06:44] LABS: Basophils % 0.9 % (0.0-0.8); Eosinophils # 0.2 10*3/uL (0.0-0.87); Eosinophils % 5.4 % (0.00-10.9); Hematocrit 31.1 VOL% (35.7-47.0); Hemoglobin 9.9 GM/DL (12.0-16.0); Immature Granulocytes % 0.2 %; Immature Granulocytes Absolute 0.01 #; Lymphocytes # 2.1 10*3/uL (1.4-4.0); Lymphocytes % 47.5 % (21.3-54.2); Mean Corpuscular HGB Conc 31.8 GM/DL (32-36); Mean Corpuscular Hemoglobin 35 PG (27-34); Mean Corpuscular Volume 109.5 FL (87-102); Mean Platelet Volume 10.3 FL (9.6-12.0); Monocytes # 0.4 10*3/uL (0.11-0.8); Monocytes % 8.5 % (1.7-12.7); Neutrophils # 1.7 10*3/uL (1.4-7.4); Neutrophils % 37.5 % (38.7-73.9); Platelet Count 226 T/CUMM (130-400); Red Blood Count 2.84 MC/CUMM (3.8-5.5); White Blood Count 4.5 T/CUMM (4-12)
[2018-11-19 07:58] LABS: Atypical Lymphocytes Few; Eosinophils 8 % (0-10); Lymphocytes 48 % (20-55); Segmented Neutrophils 40 % (50-85); Total Cells Counted 100
[2018-11-19 08:00] LABS: Hypochromasia 1+; Macrocytosis Slight
[2018-11-19 08:01] LABS: Platelet Estimate Normal
[2018-11-19] MEDS: ASPIRIN EC 81 MG TABLET PO SCH (08:34)
[2018-11-19] MEDS: amLODIPine 10 MG TABLET PO SCH (08:34)
[2018-11-19] MEDS: GABAPENTIN 300 MG CAPSULE PO SCH (08:34)
[2018-11-19] MEDS: PANTOPRAZOLE 40 MG TABLET PO SCH (08:35)
[2018-11-19] MEDS: METOCLOPRAMIDE 10 MG/10 ML UDCUP PO SCH ×2 (08:35→13:21)
[2018-11-19] MEDS ORDERED: CIPROFLOXACIN 500 MG TABLET PO SCH (12:00)
[2018-11-19 12:07] VITALS: BP 126/57
[2018-11-21 08:30] LABS: Methylmalonic Acid, Serum 0.16 nmol/mL (<=0.40)
[2018-12-30] MEDS ORDERED: PANTOPRAZOLE 40 MG TABLET PO SCH (09:00)
== END 2018-11-19 13:19 | disposition home or self-care (01) | DRG 392 ==
LOC: EDSEX → EDUNIT# → EDBD → N.ED 18:59 → N.EDINP 18:59 → N.4E 11-17 00:24
PROVIDERS: ADMIT Internal Medicine Infectious Disease; ATTEND Internal Medicine Infectious Disease

== ENCOUNTER 2018-12-24 13:37 | Inpatient (IN) ==
[2018-12-24 14:06] LABS: Basophils % 0.7 % (0.0-0.8); Eosinophils % 0.9 % (0.00-10.9); Hemoglobin 11.9 GM/DL (12.0-16.0); Lymphocytes # 2.3 10*3/uL (1.4-4.0); Lymphocytes % 51.3 % (21.3-54.2); Mean Corpuscular HGB Conc 33.1 GM/DL (32-36); Mean Corpuscular Hemoglobin 34 PG (27-34); Mean Corpuscular Volume 102.9 FL (87-102); Monocytes # 0.3 10*3/uL (0.11-0.8); Monocytes % 6.4 % (1.7-12.7); Neutrophils # 1.8 10*3/uL (1.4-7.4); Neutrophils % 40.7 % (38.7-73.9); Platelet Count 314 T/CUMM (130-400); Red Cell Distribution Width 12.6 % (9.3-17.3); White Blood Count 4.4 T/CUMM (4-12)
[2018-12-24] MEDS ORDERED: SODIUM CHLORIDE 0.9% 1,000 ML IV STA (14:07)
[2018-12-24] MEDS ORDERED: ONDANSETRON 4 MG/2 ML VIAL IV STA ×2 (14:07→17:20)
[2018-12-24] MEDS ORDERED: HYDROmorphone 2 MG/1 ML VIAL IV STA ×2 (14:07→17:19)
[2018-12-24 14:38] LABS: Albumin 3.9 G/DL (3.4-5.0); Bilirubin,Total 0.6 MG/DL (0.2-1.0); Calcium 9.4 MG/DL (8.5-10.1); Osmolality,Calculated 282.3 MOS/KG (273-304); Potassium 3.9 MMOL/L (3.5-5.1); Total Protein 7.6 G/DL (6.4-8.3); Troponin I 0.023 NG/ML (0.00-0.045)
[2018-12-24 15:22] LABS: Apearance,Urine CLEAR (Clear); Bilirubin,Urine Negative (Negative); Blood, Urine Negative (Negative); Glucose,Urine (UA) Negative (Negative); Ketones,Urine Negative (Negative); Mucus,Urine Occasional /LPF (Occasional); Nitrite,Urine Negative (Negative); Protein,Urine Negative; RBC,Urine 1 /HPF (0-4); Squamous Epithelial Cell,Urine Occasional /HPF (0-10); Urine Color Yellow (Yellow); Urine Specific Gravity 1.023 (1.001-1.035); Urine Urobilinogen < 2.0 EU/DL (0.2-1.0); WBC,Urine 2 /HPF (0-6)
[2018-12-24] MEDS: GABAPENTIN 300 MG CAPSULE PO SCH (20:43)
[2018-12-24] MEDS: FAMOTIDINE 20 MG TABLET PO SCH (20:43)
[2018-12-24] MEDS: DONEPEZIL 5 MG TABLET PO SCH (20:43)
[2018-12-24] MEDS: PANTOPRAZOLE 40 MG TABLET PO SCH (20:43)
[2018-12-24] MEDS: traZODone 50 MG TABLET PO SCH (20:43)
[2018-12-24] MEDS: MIRTAZAPINE 30 MG TABLET PO SCH (20:43)
[2018-12-25] MEDS: HYDROmorphone 2 MG/1 ML VIAL IV PRN ×3 (01:57→20:53)
[2018-12-25 06:21] LABS: Basophils % 0.7 % (0.0-0.8); Eosinophils # 0.2 10*3/uL (0.0-0.87); Eosinophils % 5.6 % (0.00-10.9); Hematocrit 31.7 VOL% (35.7-47.0); Hemoglobin 10.2 GM/DL (12.0-16.0); Lymphocytes # 2.8 10*3/uL (1.4-4.0); Lymphocytes % 64.3 % (21.3-54.2); Mean Corpuscular HGB Conc 32.2 GM/DL (32-36); Mean Corpuscular Hemoglobin 33 PG (27-34); Mean Corpuscular Volume 102.9 FL (87-102); Mean Platelet Volume 10.4 FL (9.6-12.0); Monocytes # 0.3 10*3/uL (0.11-0.8); Monocytes % 6.8 % (1.7-12.7); Neutrophils % 22.6 % (38.7-73.9); Platelet Count 282 T/CUMM (130-400); Red Blood Count 3.08 MC/CUMM (3.8-5.5); Red Cell Distribution Width 12.8 % (9.3-17.3); White Blood Count 4.3 T/CUMM (4-12)
[2018-12-25 06:46] LABS: Atypical Lymphocytes Few; Eosinophils 4 % (0-10); Hypochromasia 1+; Lymphocytes 56 % (20-55); Ovalocytes Slight; Platelet Estimate Adequate; Segmented Neutrophils 34 % (50-85); Total Cells Counted 100
[2018-12-25 06:50] LABS: Albumin 3.2 G/DL (3.4-5.0); Calcium 8.9 MG/DL (8.5-10.1); Osmolality,Calculated 282.1 MOS/KG (273-304); Potassium 3.8 MMOL/L (3.5-5.1); Total Protein 6.3 G/DL (6.4-8.3)
[2018-12-25] MEDS: GABAPENTIN 300 MG CAPSULE PO SCH ×3 (09:14→20:56)
[2018-12-25] MEDS: PANTOPRAZOLE 40 MG TABLET PO SCH ×2 (09:14→20:56)
[2018-12-25] MEDS: amLODIPine 10 MG TABLET PO SCH (09:14)
[2018-12-25] MEDS: FAMOTIDINE 20 MG TABLET PO SCH (20:56)
[2018-12-25] MEDS: DONEPEZIL 5 MG TABLET PO SCH (20:56)
[2018-12-25] MEDS: MIRTAZAPINE 30 MG TABLET PO SCH (20:56)
[2018-12-25] MEDS: traZODone 50 MG TABLET PO SCH (20:56)
[2018-12-26] MEDS: HYDROmorphone 2 MG/1 ML VIAL IV PRN ×4 (05:49→21:02)
[2018-12-26 06:10] LABS: Basophils % 1.1 % (0.0-0.8); Eosinophils # 0.3 10*3/uL (0.0-0.87); Eosinophils % 7.6 % (0.00-10.9); Hematocrit 32.6 VOL% (35.7-47.0); Hemoglobin 10.5 GM/DL (12.0-16.0); Lymphocytes # 2.2 10*3/uL (1.4-4.0); Lymphocytes % 58.7 % (21.3-54.2); Mean Corpuscular HGB Conc 32.2 GM/DL (32-36); Mean Corpuscular Hemoglobin 33 PG (27-34); Mean Corpuscular Volume 103.8 FL (87-102); Mean Platelet Volume 10.5 FL (9.6-12.0); Monocytes # 0.3 10*3/uL (0.11-0.8); Monocytes % 7.4 % (1.7-12.7); Neutrophils % 25.2 % (38.7-73.9); Platelet Count 283 T/CUMM (130-400); Red Blood Count 3.14 MC/CUMM (3.8-5.5); Red Cell Distribution Width 12.7 % (9.3-17.3); White Blood Count 3.8 T/CUMM (4-12)
[2018-12-26 06:29] LABS: Calcium 8.9 MG/DL (8.5-10.1); Osmolality,Calculated 280.3 MOS/KG (273-304); Potassium 3.7 MMOL/L (3.5-5.1)
[2018-12-26 06:34] LABS: Atypical Lymphocytes Few; Eosinophils 6 % (0-10); Hypochromasia 1+; Lymphocytes 60 % (20-55); Segmented Neutrophils 24 % (50-85); Total Cells Counted 100
[2018-12-26 06:35] LABS: Macrocytosis Slight; Platelet Estimate Normal
[2018-12-26] MEDS ORDERED: LIDOCAINE 2% 5 ML VIAL ONE (10:00)
[2018-12-26] MEDS ORDERED: PROPOFOL 200 MG/20 ML VIAL IV ONE (10:00)
[2018-12-26] MEDS: amLODIPine 10 MG TABLET PO SCH (10:29)
[2018-12-26] MEDS: PANTOPRAZOLE 40 MG TABLET PO SCH ×2 (10:29→20:55)
[2018-12-26] MEDS: ONDANSETRON 4 MG/2 ML VIAL IV PRN ×2 (10:34→17:10)
[2018-12-26] MEDS: GABAPENTIN 300 MG CAPSULE PO SCH (11:13)
[2018-12-26] MEDS: GABAPENTIN 100 MG CAPSULE PO SCH ×2 (16:56→20:55)
[2018-12-26] MEDS: traZODone 50 MG TABLET PO SCH (20:55)
[2018-12-26] MEDS: MIRTAZAPINE 30 MG TABLET PO SCH (20:55)
[2018-12-26] MEDS: FAMOTIDINE 20 MG TABLET PO SCH (20:55)
[2018-12-26] MEDS: DONEPEZIL 5 MG TABLET PO SCH (20:55)
[2018-12-27] MEDS: ONDANSETRON 4 MG/2 ML VIAL IV PRN ×4 (02:02→15:04)
[2018-12-27] MEDS: HYDROmorphone 2 MG/1 ML VIAL IV PRN ×6 (02:02→20:53)
[2018-12-27] MEDS: HYOSCYAMINE 0.125 MG TABLET PO SCH ×3 (09:11→20:55)
[2018-12-27] MEDS: GABAPENTIN 100 MG CAPSULE PO SCH ×3 (09:12→20:54)
[2018-12-27] MEDS: amLODIPine 10 MG TABLET PO SCH (09:13)
[2018-12-27] MEDS: PANTOPRAZOLE 40 MG TABLET PO SCH ×2 (09:13→20:54)
[2018-12-27] MEDS: SUCRALFATE 1 GM/10 ML UDCUP PO SCH ×3 (12:20→20:54)
[2018-12-27] MEDS: DONEPEZIL 5 MG TABLET PO SCH (20:54)
[2018-12-27] MEDS: FAMOTIDINE 20 MG TABLET PO SCH (20:54)
[2018-12-27] MEDS: MIRTAZAPINE 30 MG TABLET PO SCH (20:54)
[2018-12-27] MEDS: traZODone 50 MG TABLET PO SCH (20:54)
[2018-12-28] MEDS: HYDROmorphone 2 MG/1 ML VIAL IV PRN ×6 (01:21→22:48)
[2018-12-28] MEDS: amLODIPine 10 MG TABLET PO SCH (08:18)
[2018-12-28] MEDS: SUCRALFATE 1 GM/10 ML UDCUP PO SCH ×4 (08:18→21:32)
[2018-12-28] MEDS: GABAPENTIN 100 MG CAPSULE PO SCH ×3 (08:18→21:32)
[2018-12-28] MEDS: HYOSCYAMINE 0.125 MG TABLET PO SCH ×4 (08:18→21:33)
[2018-12-28] MEDS: ONDANSETRON 4 MG/2 ML VIAL IV PRN (08:23)
[2018-12-28] MEDS: PANTOPRAZOLE 40 MG TABLET PO SCH ×2 (08:34→21:33)
[2018-12-28] MEDS ORDERED: PROMETHAZINE 25 MG/1 ML VIAL IM PRN (09:11)
[2018-12-28] MEDS: METOCLOPRAMIDE 10 MG/2 ML VIAL IV SCH ×2 (11:28→17:03)
[2018-12-28] MEDS: MIRTAZAPINE 30 MG TABLET PO SCH (21:33)
[2018-12-28] MEDS: traZODone 50 MG TABLET PO SCH (21:33)
[2018-12-28] MEDS: FAMOTIDINE 20 MG TABLET PO SCH (21:33)
[2018-12-28] MEDS: DONEPEZIL 5 MG TABLET PO SCH (21:34)
[2018-12-29] MEDS: METOCLOPRAMIDE 10 MG/2 ML VIAL IV SCH ×3 (00:16→13:01)
[2018-12-29] MEDS: HYDROmorphone 2 MG/1 ML VIAL IV PRN ×3 (03:59→13:02)
[2018-12-29] MEDS: HYOSCYAMINE 0.125 MG TABLET PO SCH ×3 (03:59→14:45)
[2018-12-29] MEDS: amLODIPine 10 MG TABLET PO SCH (08:39)
[2018-12-29] MEDS: GABAPENTIN 100 MG CAPSULE PO SCH ×2 (08:39→14:45)
[2018-12-29] MEDS: SUCRALFATE 1 GM/10 ML UDCUP PO SCH ×3 (08:40→17:10)
[2018-12-29] MEDS: PANTOPRAZOLE 40 MG TABLET PO SCH (08:40)
[2018-12-29 08:59] LABS: Calcium 8.7 MG/DL (8.5-10.1); Potassium 4.1 MMOL/L (3.5-5.1)
[2018-12-29 16:40] VITALS: BP 119/66
== END 2018-12-29 18:05 | disposition home health service (06) | DRG 392 ==
LOC: EDUNIT# → N.EDINP 13:37 → N.ED 13:37 → SUATTDRO 17:21 → N.5E 18:13
PROVIDERS: ADMIT Internal Medicine; ATTEND Internal Medicine

== ENCOUNTER 2019-08-24 22:15 | Inpatient (IN) ==
[2019-08-24] MEDS ORDERED: ONDANSETRON 4 MG/2 ML VIAL IV STA (23:24)
[2019-08-24] MEDS ORDERED: PIPERACILLIN/TAZOBACTAM 3,375 MG in SODIUM CHLORIDE 0.9% 100 ML IV STA (23:24)
[2019-08-24] MEDS ORDERED: SODIUM CHLORIDE 0.9% 1,000 ML IV SCH (23:30)
[2019-08-25 00:19] LABS: Basophils % 0.3 % (0.0-0.8); Eosinophils % 0.6 % (0.00-10.9); Hematocrit 33.3 VOL% (35.7-47.0); Hemoglobin 11.4 GM/DL (12.0-16.0); Immature Granulocytes % 0.3 %; Immature Granulocytes Absolute 0.01 #; Lymphocytes % 61.9 % (21.3-54.2); Mean Corpuscular HGB Conc 34.2 GM/DL (32-36); Mean Corpuscular Volume 98.8 FL (87-102); Mean Platelet Volume 11.9 FL (9.6-12.0); Monocytes % 6.4 % (1.7-12.7); Neutrophils % 30.5 % (38.7-73.9); Platelet Count 122 T/CUMM (130-400); Red Blood Count 3.37 MC/CUMM (3.8-5.5); White Blood Count 3.3 T/CUMM (4-12)
[2019-08-25] MEDS ORDERED: ONDANSETRON 4 MG/2 ML VIAL IV PRN (00:28)
[2019-08-25] MEDS: MORPHINE 4 MG/1 ML VIAL IV PRN ×6 (02:02→21:17)
[2019-08-25 02:40] LABS: Albumin 3.1 G/DL (3.4-5.0); Bilirubin,Total 0.5 MG/DL (0.2-1.0); Calcium 8.6 MG/DL (8.5-10.1); Osmolality,Calculated 291.4 MOS/KG (273-304); Total Protein 6.3 G/DL (6.4-8.3)
[2019-08-25 02:59] LABS: Lymphocytes 68 % (20-55); Segmented Neutrophils 26 % (50-85)
[2019-08-25 03:01] LABS: Total Cells Counted 100
[2019-08-25] MEDS ORDERED: SODIUM CHLORIDE 0.9% 100 ML IV ONE (03:06)
[2019-08-25] MEDS: cefTRIAXone 1,000 MG in SYRINGE 1 EACH IV SCH (03:20)
[2019-08-25] MEDS: SODIUM CHLOR 0.9% KCL 20 MEQ 20 MEQ/1,000 ML BAG IV SCH ×2 (04:16→15:01)
[2019-08-25] MEDS: SODIUM CHLORIDE 0.9% 1,000 ML IV SCH ×2 (04:16→16:50)
[2019-08-25] MEDS: metroNIDAZOLE INJ 500 MG in PREMIX 1 EACH IV SCH ×3 (05:16→21:09)
[2019-08-25] MEDS ORDERED: INFLUENZA VIRUS VACCINE 0.5 ML SYRINGE IM ONE (07:05)
[2019-08-25 08:21] LABS: Apearance,Urine CLEAR (Clear); Bilirubin,Urine Negative (Negative); Blood, Urine Negative (Negative); Glucose,Urine (UA) Negative (Negative); Ketones,Urine Negative (Negative); Mucus,Urine Occasional /LPF (Occasional); Nitrite,Urine Negative (Negative); Protein,Urine Negative; RBC,Urine 2 /HPF (0-4); Squamous Epithelial Cell,Urine Occasional /HPF (0-10); Urine Color Yellow (Yellow); Urine Specific Gravity 1.026 (1.001-1.035); Urine Urobilinogen < 2.0 EU/DL (0.2-1.0); WBC,Urine 4 /HPF (0-6)
[2019-08-25] MEDS: GABAPENTIN 100 MG CAPSULE PO SCH ×3 (09:08→21:09)
[2019-08-25] MEDS: CITALOPRAM 20 MG TABLET PO SCH (09:08)
[2019-08-25] MEDS: ENOXAPARIN 40 MG/0.4 ML SYRINGE SUBCUT SCH (09:08)
[2019-08-25] MEDS: PANTOPRAZOLE 40 MG TABLET PO SCH (09:08)
[2019-08-25] MEDS: amLODIPine 10 MG TABLET PO SCH (09:08)
[2019-08-26] MEDS: SODIUM CHLOR 0.9% KCL 20 MEQ 20 MEQ/1,000 ML BAG IV SCH ×2 (01:36→15:30)
[2019-08-26] MEDS: cefTRIAXone 1,000 MG in SYRINGE 1 EACH IV SCH (02:33)
[2019-08-26] MEDS: MORPHINE 4 MG/1 ML VIAL IV PRN ×5 (02:43→20:37)
[2019-08-26] MEDS: metroNIDAZOLE INJ 500 MG in PREMIX 1 EACH IV SCH ×2 (05:12→15:31)
[2019-08-26] MEDS: SODIUM CHLORIDE 0.9% 1,000 ML IV SCH ×2 (05:12→20:00)
[2019-08-26 05:53] LABS: Basophils % 0.5 % (0.0-0.8); Eosinophils # 0.3 10*3/uL (0.0-0.87); Eosinophils % 6.3 % (0.00-10.9); Hematocrit 29.5 VOL% (35.7-47.0); Hemoglobin 9.6 GM/DL (12.0-16.0); Immature Granulocytes % 0.2 %; Immature Granulocytes Absolute 0.01 #; Lymphocytes # 2.3 10*3/uL (1.4-4.0); Mean Corpuscular HGB Conc 32.5 GM/DL (32-36); Mean Corpuscular Volume 103.9 FL (87-102); Mean Platelet Volume 10.3 FL (9.6-12.0); Monocytes % 7.7 % (1.7-12.7); Neutrophils % 30.3 % (38.7-73.9); Platelet Count 243 T/CUMM (130-400); Red Blood Count 2.84 MC/CUMM (3.8-5.5); Red Cell Distribution Width 13.9 % (9.3-17.3); White Blood Count 4.1 T/CUMM (4-12)
[2019-08-26 06:07] LABS: Calcium 8.3 MG/DL (8.5-10.1); Osmolality,Calculated 291.3 MOS/KG (273-304)
[2019-08-26 06:18] LABS: Eosinophils 8 % (0-10); Lymphocytes 53 % (20-55); Segmented Neutrophils 37 % (50-85); Total Cells Counted 100
[2019-08-26 06:19] LABS: Hypochromasia Slight; Macrocytosis Slight; Platelet Estimate Normal
[2019-08-26] MEDS ORDERED: PROPOFOL 200 MG/20 ML VIAL IV ONE (10:00)
[2019-08-26] MEDS ORDERED: LIDOCAINE 2% 5 ML VIAL ONE (10:00)
[2019-08-26] MEDS: GABAPENTIN 100 MG CAPSULE PO SCH ×3 (10:34→20:05)
[2019-08-26] MEDS: PANTOPRAZOLE 40 MG TABLET PO SCH (10:34)
[2019-08-26] MEDS: CITALOPRAM 20 MG TABLET PO SCH (10:34)
[2019-08-26] MEDS: amLODIPine 10 MG TABLET PO SCH (10:34)
[2019-08-26] MEDS: ENOXAPARIN 40 MG/0.4 ML SYRINGE SUBCUT SCH (10:35)
[2019-08-26] MEDS: LACTATED RINGERS 1,000 ML IV SCH (14:03)
[2019-08-27] MEDS ORDERED: cefTRIAXone 1,000 MG VIAL IM ONE (01:22)
[2019-08-27] MEDS: SODIUM CHLOR 0.9% KCL 20 MEQ 20 MEQ/1,000 ML BAG IV SCH ×2 (01:38→06:31)
[2019-08-27] MEDS: metroNIDAZOLE 500 MG TABLET PO SCH ×2 (02:07→09:53)
[2019-08-27 06:16] LABS: Basophils % 0.5 % (0.0-0.8); Eosinophils # 0.4 10*3/uL (0.0-0.87); Eosinophils % 9.9 % (0.00-10.9); Hematocrit 32.2 VOL% (35.7-47.0); Hemoglobin 10.5 GM/DL (12.0-16.0); Immature Granulocytes % 0.3 %; Immature Granulocytes Absolute 0.01 #; Lymphocytes # 1.9 10*3/uL (1.4-4.0); Lymphocytes % 49.2 % (21.3-54.2); Mean Corpuscular HGB Conc 32.6 GM/DL (32-36); Mean Corpuscular Volume 101.9 FL (87-102); Mean Platelet Volume 10.5 FL (9.6-12.0); Monocytes % 8.6 % (1.7-12.7); Neutrophils % 31.5 % (38.7-73.9); Platelet Count 275 T/CUMM (130-400); Red Blood Count 3.16 MC/CUMM (3.8-5.5); Red Cell Distribution Width 13.6 % (9.3-17.3); White Blood Count 3.8 T/CUMM (4-12)
[2019-08-27 06:37] LABS: Osmolality,Calculated 281.8 MOS/KG (273-304)
[2019-08-27 06:41] LABS: Eosinophils 18 % (0-10); Hypochromasia 1+; Lymphocytes 45 % (20-55); Ovalocytes Slight; Platelet Estimate Adequate; Segmented Neutrophils 29 % (50-85); Total Cells Counted 100
[2019-08-27 06:42] LABS: Macrocytosis Slight
[2019-08-27] MEDS: metroNIDAZOLE INJ 500 MG in PREMIX 1 EACH IV SCH (07:27)
[2019-08-27] MEDS: cefTRIAXone 1,000 MG in SYRINGE 1 EACH IV SCH (07:31)
[2019-08-27] MEDS: ENOXAPARIN 40 MG/0.4 ML SYRINGE SUBCUT SCH (08:53)
[2019-08-27] MEDS: CITALOPRAM 20 MG TABLET PO SCH (08:54)
[2019-08-27] MEDS: GABAPENTIN 100 MG CAPSULE PO SCH ×2 (08:55→14:57)
[2019-08-27] MEDS: amLODIPine 10 MG TABLET PO SCH (08:55)
[2019-08-27] MEDS: SODIUM CHLORIDE 0.9% 1,000 ML IV SCH (08:55)
[2019-08-27] MEDS: PANTOPRAZOLE 40 MG TABLET PO SCH (08:55)
[2019-08-27] MEDS ORDERED: ALUM/MAG/SIMETH/LIDO VISC 1:1 30 ML BOTTLE PO ONE (10:09)
[2019-08-27 11:13] VITALS: BP 127/49
[2019-08-27] MEDS: LACTATED RINGERS 1,000 ML IV SCH (17:19)
== END 2019-08-27 16:43 | disposition home or self-care (01) | DRG 392 ==
LOC: EDUNIT# → EDBD → N.ED 22:15 → N.EDINP 08-25 00:28 → N.3E 08-25 00:52
PROVIDERS: ADMIT Internal Medicine; ATTEND Internal Medicine

== ENCOUNTER 2020-08-23 14:05 | Observation (INO) ==
[2020-08-23] MEDS ORDERED: ALUM/MAG/SIMETH/LIDO VISC 1:1 30 ML BOTTLE PO ONE (14:42)
[2020-08-23] MEDS ORDERED: ALUM/MAG/SIMETH/LIDO VISC 1:1 30 ML BOTTLE PO STA (14:52)
[2020-08-23] MEDS ORDERED: ONDANSETRON 4 MG/2 ML VIAL IV STA (16:56)
[2020-08-23] MEDS ORDERED: SODIUM CHLORIDE 0.9% 1,000 ML IV STA (16:56)
[2020-08-23 17:20] LABS: Basophils % 0.7 % (0.0-0.8); Eosinophils # 0.1 10*3/uL (0.0-0.87); Eosinophils % 2.4 % (0.00-10.9); Hematocrit 37.4 VOL% (35.7-47.0); Hemoglobin 12.4 GM/DL (12.0-16.0); Immature Granulocytes % 0.7 %; Immature Granulocytes Absolute 0.03 #; Lymphocytes # 1.6 10*3/uL (1.4-4.0); Lymphocytes % 34.9 % (21.3-54.2); Mean Corpuscular HGB Conc 33.2 GM/DL (32-36); Mean Corpuscular Volume 100.3 FL (87-102); Mean Platelet Volume 11.6 FL (9.6-12.0); Monocytes % 8.6 % (1.7-12.7); Neutrophils % 52.7 % (38.7-73.9); Platelet Count 251 T/CUMM (130-400); Red Blood Count 3.73 MC/CUMM (3.8-5.5); Red Cell Distribution Width 14.1 % (9.3-17.3); White Blood Count 4.5 T/CUMM (4-12)
[2020-08-23 17:22] LABS: Alanine Aminotransferase 15 U/L (13-56); Albumin 3.9 G/DL (3.4-5.0); Alkaline Phosphatase 115 U/L (45-117); Aspartate Amino Transferase 20 U/L (0-37); Bilirubin,Total < 0.39 MG/DL (0.2-1.0); Blood Urea Nitrogen 15 MG/DL (7-18); Estimated Glom Filtration Rate 60 ML/MIN; Glucose 83 MG/DL (74-106); Total Protein 8.2 G/DL (6.4-8.3)
[2020-08-23 18:10] LABS: Platelet Estimate Adequate
[2020-08-23] MEDS ORDERED: GLUCAGON 1 MG VIAL IM PRN (18:14)
[2020-08-23] MEDS ORDERED: DEXTROSE 50% 25 GM/50 ML VIAL IV PRN (18:14)
[2020-08-23] MEDS ORDERED: GABAPENTIN 300 MG CAPSULE PO PRN (18:17)
[2020-08-23] MEDS ORDERED: traZODone 50 MG TABLET PO PRN (18:17)
[2020-08-23] MEDS ORDERED: HydrOXYzine PAMOATE 25 MG CAPSULE PO PRN (18:17)
[2020-08-23 19:51] LABS: Calcium 9.1 MG/DL (8.5-10.1); Osmolality,Calculated 287.7 MOS/KG (273-304)
[2020-08-23] MEDS ORDERED: ENOXAPARIN 40 MG/0.4 ML SYRINGE SUBCUT SCH (21:00)
[2020-08-23] MEDS ORDERED: DONEPEZIL 5 MG TABLET PO SCH (21:00)
[2020-08-23] MEDS ORDERED: MIRTAZAPINE 30 MG TABLET PO SCH (21:00)
[2020-08-23] MEDS: ALUMINUM/MAGNES/SIMETH MAX STR 30 ML UDCUP PO PRN (22:38)
[2020-08-24] MEDS: DICYCLOMINE 20 MG TABLET PO PRN ×2 (00:20→07:53)
[2020-08-24 06:48] LABS: Basophils % 0.5 % (0.0-0.8); Eosinophils # 0.3 10*3/uL (0.0-0.87); Eosinophils % 7.4 % (0.00-10.9); Hematocrit 34.1 VOL% (35.7-47.0); Hemoglobin 11.2 GM/DL (12.0-16.0); Immature Granulocytes % 0.2 %; Immature Granulocytes Absolute 0.01 #; Lymphocytes # 2.2 10*3/uL (1.4-4.0); Lymphocytes % 51.7 % (21.3-54.2); Mean Corpuscular HGB Conc 32.8 GM/DL (32-36); Mean Corpuscular Volume 101.8 FL (87-102); Mean Platelet Volume 11.6 FL (9.6-12.0); Monocytes % 8.8 % (1.7-12.7); Neutrophils % 31.4 % (38.7-73.9); Platelet Count 226 T/CUMM (130-400); Red Blood Count 3.35 MC/CUMM (3.8-5.5); Red Cell Distribution Width 14.2 % (9.3-17.3); White Blood Count 4.2 T/CUMM (4-12)
[2020-08-24 07:14] LABS: Atypical Lymphocytes Few; Eosinophils 6 % (0-10); Hypochromasia 1+; Lymphocytes 60 % (20-55); Segmented Neutrophils 26 % (50-85); Total Cells Counted 100
[2020-08-24 07:15] LABS: Macrocytosis Slight; Platelet Estimate Normal
[2020-08-24 07:50] LABS: Calcium 9.2 MG/DL (8.5-10.1); Osmolality,Calculated 279.3 MOS/KG (273-304)
[2020-08-24] MEDS: ALUMINUM/MAGNES/SIMETH MAX STR 30 ML UDCUP PO PRN (07:53)
[2020-08-24] MEDS ORDERED: PANTOPRAZOLE 40 MG TABLET PO SCH (09:00)
[2020-08-24] MEDS ORDERED: amLODIPine 10 MG TABLET PO SCH (09:00)
[2020-08-24] MEDS: ONDANSETRON 4 MG/2 ML VIAL IV PRN ×2 (09:37→16:38)
[2020-08-24 16:19] VITALS: BP 127/56
== END 2020-08-24 17:20 | disposition hospice, home (50) ==
LOC: N.EDINP 14:05 → N.ED 14:05 → N.TELEN 19:50
PROVIDERS: ADMIT Internal Medicine Geriatric Medicine; ATTEND Internal Medicine Geriatric Medicine

== ENCOUNTER 2020-12-13 13:53 | Observation (INO) ==
[2020-12-13 17:41] LABS: Bacteria,Urine Occasional /HPF (Few); Bilirubin,Urine Negative (Negative); Blood, Urine Negative (Negative); Glucose,Urine (UA) Negative (Negative); Hyaline Casts,Urine 3 /LPF (0-3); Ketones,Urine 5 mg/dL (Negative); Mucus,Urine Few /LPF (Occasional); Nitrite,Urine Negative (Negative); Protein,Urine 100 MG/DL; RBC,Urine 5 /HPF (0-4); Squamous Epithelial Cell,Urine Occasional /HPF (0-10); Urine Appearance CLEAR (Clear); Urine Color Amber (Yellow); Urine Specific Gravity 1.021 (1.001-1.035); Urine Urobilinogen < 2.0 EU/DL (0.2-1.0); WBC,Urine 47 /HPF (0-6)
[2020-12-13] MEDS ORDERED: ALUM/MAG/SIMETH/LIDO VISC 1:1 30 ML BOTTLE PO STA (18:11)
[2020-12-13 18:45] LABS: Basophils % 0.4 % (0.0-0.8); Eosinophils % 0.4 % (0.00-10.9); Hematocrit 38.5 VOL% (35.7-47.0); Hemoglobin 13.5 GM/DL (12.0-16.0); Immature Granulocytes % 0.1 %; Immature Granulocytes Absolute 0.01 #; Lymphocytes # 2.2 10*3/uL (1.4-4.0); Lymphocytes % 30.8 % (21.3-54.2); Mean Corpuscular HGB Conc 35.1 GM/DL (32-36); Mean Platelet Volume 10.4 FL (9.6-12.0); Monocytes % 10.3 % (1.7-12.7); Platelet Count 377 T/CUMM (130-400); Red Blood Count 3.89 MC/CUMM (3.8-5.5); Red Cell Distribution Width 13.6 % (9.3-17.3); White Blood Count 7.1 T/CUMM (4-12)
[2020-12-13 19:15] LABS: Albumin 4.1 G/DL (3.4-5.0); Bilirubin,Total 0.9 MG/DL (0.2-1.0); Calcium 9.7 MG/DL (8.5-10.1); Osmolality,Calculated 273.7 MOS/KG (273-304); Potassium 2.9 MMOL/L (3.5-5.1); Total Protein 7.4 G/DL (6.4-8.3)
[2020-12-13] MEDS ORDERED: POTASSIUM CHLORIDE 20 MEQ TABLET PO STA ×2 (19:39→19:41)
[2020-12-13] MEDS ORDERED: HYDROmorphone 2 MG/1 ML VIAL IV STA (19:43)
[2020-12-13] MEDS ORDERED: KETOROLAC 30 MG/1 ML VIAL IV STA (19:49)
[2020-12-13] MEDS ORDERED: GLUCAGON 1 MG VIAL IM PRN (20:15)
[2020-12-13] MEDS ORDERED: DEXTROSE 50% 25 GM/50 ML VIAL IV PRN (20:15)
[2020-12-13] MEDS ORDERED: NICOTINE 21 MG/24 HR PATCH TRANSDERM PRN (20:15)
[2020-12-14] MEDS: MORPHINE 4 MG/1 ML VIAL IV PRN ×6 (00:55→23:20)
[2020-12-14 04:55] LABS: Albumin 3.7 G/DL (3.4-5.0); Bilirubin,Total 1.1 MG/DL (0.2-1.0); Calcium 9.5 MG/DL (8.5-10.1); Osmolality,Calculated 283.1 MOS/KG (273-304); Potassium 3.2 MMOL/L (3.5-5.1); Total Protein 7.5 G/DL (6.4-8.3)
[2020-12-14] MEDS ORDERED: POTASSIUM CHLORIDE 20 MEQ TABLET PO ONE (07:40)
[2020-12-14] MEDS: SODIUM CHLORIDE 0.9% 1,000 ML IV SCH (08:30)
[2020-12-14] MEDS: PANTOPRAZOLE 40 MG VIAL IV SCH ×2 (08:46→20:54)
[2020-12-14] MEDS: SULFAMETHOX/TRIMETHOPRIM 800-160 MG TABLET PO SCH ×2 (08:46→20:57)
[2020-12-14] MEDS ORDERED: PANTOPRAZOLE 20 MG TABLET PO SCH (09:00)
[2020-12-14] MEDS ORDERED: amLODIPine 10 MG TABLET PO SCH (09:00)
[2020-12-14] MEDS ORDERED: POTASSIUM CHLORIDE 20 MEQ TABLET PO PRN (12:30)
[2020-12-14 14:53] LABS: Calcium 8.8 MG/DL (8.5-10.1); Osmolality,Calculated 278.5 MOS/KG (273-304)
[2020-12-14] MEDS: traZODone 50 MG TABLET PO SCH (20:57)
[2020-12-15 05:34] LABS: Calcium 8.6 MG/DL (8.5-10.1); Osmolality,Calculated 284.1 MOS/KG (273-304); Potassium 4.1 MMOL/L (3.5-5.1)
[2020-12-15] MEDS: SODIUM CHLORIDE 0.9% 1,000 ML IV SCH ×2 (05:37→19:03)
[2020-12-15] MEDS: MORPHINE 4 MG/1 ML VIAL IV PRN ×4 (05:37→20:41)
[2020-12-15] MEDS: PANTOPRAZOLE 40 MG VIAL IV SCH ×2 (09:16→20:45)
[2020-12-15] MEDS: ONDANSETRON 4 MG/2 ML VIAL IV PRN ×3 (10:49→20:42)
[2020-12-15] MEDS: LACTATED RINGERS 1,000 ML IV SCH (11:53)
[2020-12-15] MEDS ORDERED: LIDOCAINE 2% 5 ML VIAL ONE (13:48)
[2020-12-15] MEDS ORDERED: propofoL 200 MG/20 ML VIAL IV ONE (13:48)
[2020-12-15] MEDS ORDERED: ETOMIDATE 20 MG/10 ML VIAL IV ONE (13:52)
[2020-12-15] MEDS: SULFAMETHOX/TRIMETHOPRIM 800-160 MG TABLET PO SCH ×2 (15:14→20:46)
[2020-12-15] MEDS: amLODIPine 5 MG TABLET PO SCH (15:14)
[2020-12-15] MEDS: traZODone 50 MG TABLET PO SCH (20:46)
[2020-12-16] MEDS: MORPHINE 4 MG/1 ML VIAL IV PRN (02:12)
[2020-12-16 05:51] LABS: Calcium 8.7 MG/DL (8.5-10.1); Osmolality,Calculated 283.1 MOS/KG (273-304); Potassium 4.1 MMOL/L (3.5-5.1)
[2020-12-16 05:52] LABS: Basophils % 0.4 % (0.0-0.8); Eosinophils # 0.3 10*3/uL (0.0-0.87); Eosinophils % 5.1 % (0.00-10.9); Hematocrit 31.8 VOL% (35.7-47.0); Immature Granulocytes % 0.2 %; Immature Granulocytes Absolute 0.01 #; Lymphocytes # 2.4 10*3/uL (1.4-4.0); Lymphocytes % 41.4 % (21.3-54.2); Mean Corpuscular HGB Conc 32.4 GM/DL (32-36); Mean Corpuscular Volume 107.1 FL (87-102); Mean Platelet Volume 11.3 FL (9.6-12.0); Monocytes % 7.8 % (1.7-12.7); Neutrophils % 45.1 % (38.7-73.9); Red Cell Distribution Width 14.7 % (9.3-17.3); White Blood Count 5.7 T/CUMM (4-12)
[2020-12-16 05:54] LABS: Hemoglobin 10.3 GM/DL (12.0-16.0); Platelet Count 254 T/CUMM (130-400); Red Blood Count 2.97 MC/CUMM (3.8-5.5)
[2020-12-16] MEDS: SULFAMETHOX/TRIMETHOPRIM 800-160 MG TABLET PO SCH ×2 (08:28→20:42)
[2020-12-16] MEDS: amLODIPine 5 MG TABLET PO SCH (08:28)
[2020-12-16] MEDS: PANTOPRAZOLE 40 MG VIAL IV SCH (08:29)
[2020-12-16] MEDS: LACTATED RINGERS 1,000 ML IV SCH (08:35)
[2020-12-16] MEDS: ONDANSETRON 4 MG/2 ML VIAL IV PRN ×2 (11:26→19:33)
[2020-12-16] MEDS ORDERED: BISMUTH SUBSALICYLATE 30 ML/524 MG 240 ML/BOTTLE PO PRN (12:57)
[2020-12-16] MEDS: AMOXICILLIN 500 MG CAPSULE PO SCH ×2 (14:30→20:42)
[2020-12-16] MEDS: PROMETHAZINE 25 MG/1 ML VIAL IM PRN ×2 (14:55→23:28)
[2020-12-16] MEDS: traZODone 50 MG TABLET PO SCH (20:42)
[2020-12-17] MEDS: SODIUM CHLORIDE 0.9% 1,000 ML IV SCH ×2 (00:30→10:58)
[2020-12-17] MEDS: AMOXICILLIN 500 MG CAPSULE PO SCH ×2 (08:39→20:42)
[2020-12-17] MEDS: ONDANSETRON 4 MG/2 ML VIAL IV PRN ×2 (08:40→19:34)
[2020-12-17] MEDS: SULFAMETHOX/TRIMETHOPRIM 800-160 MG TABLET PO SCH (08:40)
[2020-12-17] MEDS: PANTOPRAZOLE 40 MG TABLET PO SCH (08:40)
[2020-12-17] MEDS: amLODIPine 5 MG TABLET PO SCH (08:40)
[2020-12-17] MEDS: SUCRALFATE 1 GM/10 ML UDCUP PO SCH ×3 (11:02→20:42)
[2020-12-17] MEDS: PROMETHAZINE 25 MG/1 ML VIAL IM PRN (13:18)
[2020-12-17] MEDS: traZODone 50 MG TABLET PO SCH (20:42)
[2020-12-18] MEDS: ONDANSETRON 4 MG/2 ML VIAL IV PRN ×2 (03:57→10:16)
[2020-12-18 08:00] VITALS: BP 143/70
[2020-12-18] MEDS: SUCRALFATE 1 GM/10 ML UDCUP PO SCH ×2 (08:47→11:29)
[2020-12-18] MEDS: SODIUM CHLORIDE 0.9% 1,000 ML IV SCH (08:47)
[2020-12-18] MEDS: amLODIPine 5 MG TABLET PO SCH (08:48)
[2020-12-18] MEDS: PANTOPRAZOLE 40 MG TABLET PO SCH (08:48)
[2020-12-18] MEDS: AMOXICILLIN 500 MG CAPSULE PO SCH (08:48)
== END 2020-12-18 14:04 | disposition home or self-care (01) ==
LOC: N.ED 13:53 → N.EDINP 13:53 → SUATTDRO 20:15 → UNDODISOB 12-14 11:09 → N.EDINP 12-14 12:15 → N.TELES 12-14 12:20
PROVIDERS: ADMIT Internal Medicine; ATTEND Emergency Medicine

== ENCOUNTER 2022-09-22 12:22 | Observation (INO) ==
[2022-09-22] MEDS ORDERED: ALUM/MAG/SIMETH/LIDO VISC 1:1 30 ML BOTTLE PO ONE ×2 (12:38→23:20)
[2022-09-22] MEDS ORDERED: ONDANSETRON 4 MG/2 ML VIAL IV STA (12:42)
[2022-09-22] MEDS ORDERED: PANTOPRAZOLE 40 MG VIAL IV STA (12:42)
[2022-09-22] MEDS ORDERED: ALUM/MAG/SIMETH/LIDO VISC 1:1 30 ML BOTTLE PO STA (12:42)
[2022-09-22] MEDS ORDERED: SODIUM CHLORIDE 0.9% 500 ML IV STA (12:42)
[2022-09-22 13:01] LABS: Basophils % 0.4 % (0.0-0.8); Eosinophils % 0.4 % (0.00-10.9); Hemoglobin 12.6 GM/DL (12.0-16.0); Immature Granulocytes % 0.2 %; Immature Granulocytes Absolute 0.01 #; Lymphocytes % 37.7 % (21.3-54.2); Mean Corpuscular HGB Conc 33.2 GM/DL (32-36); Mean Corpuscular Volume 101.3 FL (87-102); Monocytes # 0.3 10*3/uL (0.11-0.8); Monocytes % 5.4 % (1.7-12.7); Neutrophils % 55.9 % (38.7-73.9); Platelet Count 285 T/CUMM (130-400); Red Blood Count 3.75 MC/CUMM (3.8-5.5); Red Cell Distribution Width 14.1 % (9.3-17.3); White Blood Count 5.2 T/CUMM (4-12)
[2022-09-22 13:25] LABS: Albumin 3.6 G/DL (3.4-5.0); Bilirubin,Total 0.6 MG/DL (0.20-1.00); Calcium 10.1 MG/DL (8.5-10.1); Total Protein 7.5 G/DL (6.4-8.2)
[2022-09-22] MEDS ORDERED: MORPHINE 2 MG/1 ML SYRINGE IV STA (13:27)
[2022-09-22 13:37] LABS: Bilirubin,Urine Negative (Negative); Blood, Urine Negative (Negative); Glucose,Urine (UA) Negative (Negative); Ketones,Urine Negative (Negative); Mucus,Urine Occasional /LPF (Occasional); Nitrite,Urine Negative (Negative); Protein,Urine Negative (Negative); RBC,Urine 1 /HPF (0-4); Squamous Epithelial Cell,Urine Occasional /HPF (0-10); Urine Appearance CLEAR (Clear); Urine Color Yellow (Yellow); Urine Specific Gravity 1.014 (1.001-1.035); Urine Urobilinogen < 2.0 eU/dL (<2.0)
[2022-09-22] MEDS ORDERED: SODIUM CHLORIDE 0.9% 1,000 ML IV STA (14:49)
[2022-09-22] MEDS ORDERED: SUCRALFATE 1 GM/10 ML UDCUP PO SCH (16:30)
[2022-09-22] MEDS ORDERED: MORPHINE 2 MG/1 ML SYRINGE IV PRN (18:01)
[2022-09-22] MEDS ORDERED: hydrALAZINE 20 MG/1 ML VIAL IV PRN (18:29)
[2022-09-22] MEDS ORDERED: ENOXAPARIN 30 MG/0.3 ML SYRINGE SUBCUT SCH (18:30)
[2022-09-22] MEDS: SODIUM CHLORIDE 0.9% 1,000 ML IV SCH (19:12)
[2022-09-22] MEDS: GABAPENTIN 300 MG CAPSULE PO SCH (20:56)
[2022-09-22] MEDS ORDERED: ZALEPLON 5 MG CAPSULE PO ONE (23:29)
[2022-09-22] MEDS: FAMOTIDINE 20 MG/2 ML VIAL IV SCH (23:35)
[2022-09-23] MEDS: ONDANSETRON 4 MG/2 ML VIAL IV PRN ×3 (02:16→18:14)
[2022-09-23] MEDS: SUCRALFATE 1 GM/10 ML UDCUP PO SCH ×5 (02:16→20:28)
[2022-09-23] MEDS ORDERED: MORPHINE 2 MG/1 ML SYRINGE IV ONE ×2 (02:26→23:41)
[2022-09-23 06:20] LABS: Basophils % 0.5 % (0.0-0.8); Eosinophils # 0.1 10*3/uL (0.0-0.87); Eosinophils % 2.3 % (0.00-10.9); Hematocrit 31.5 VOL% (35.7-47.0); Immature Granulocytes % 0.3 %; Immature Granulocytes Absolute 0.01 #; Lymphocytes # 1.8 10*3/uL (1.4-4.0); Lymphocytes % 46.8 % (21.3-54.2); Mean Corpuscular Volume 104.7 FL (87-102); Mean Platelet Volume 11.1 FL (9.6-12.0); Monocytes # 0.3 10*3/uL (0.11-0.8); Monocytes % 6.7 % (1.7-12.7); Neutrophils % 43.4 % (38.7-73.9); Red Blood Count 3.01 MC/CUMM (3.8-5.5); Red Cell Distribution Width 14.2 % (9.3-17.3); White Blood Count 3.9 T/CUMM (4-12)
[2022-09-23 06:22] LABS: Albumin 2.8 G/DL (3.4-5.0); Bilirubin,Total 0.6 MG/DL (0.20-1.00); Calcium 8.6 MG/DL (8.5-10.1); Potassium 3.9 MMOL/L (3.5-5.1)
[2022-09-23 06:24] LABS: Hemoglobin 10.4 GM/DL (12.0-16.0); Platelet Count 227 T/CUMM (130-400)
[2022-09-23] MEDS: GABAPENTIN 300 MG CAPSULE PO SCH ×3 (08:41→20:28)
[2022-09-23] MEDS: PANTOPRAZOLE 40 MG TABLET PO SCH (08:41)
[2022-09-23] MEDS: amLODIPine 10 MG TABLET PO SCH (08:41)
[2022-09-23] MEDS: SODIUM CHLORIDE 0.9% 1,000 ML IV SCH ×2 (08:54→22:14)
[2022-09-23] MEDS: FAMOTIDINE 20 MG/2 ML VIAL IV SCH ×2 (11:41→20:28)
[2022-09-24] MEDS: MORPHINE 2 MG/1 ML SYRINGE IV PRN ×3 (08:55→20:46)
[2022-09-24] MEDS ORDERED: LACTATED RINGERS 1,000 ML IV SCH (12:00)
[2022-09-24] MEDS ORDERED: propofoL 200 MG/20 ML VIAL IV ONE (12:43)
[2022-09-24] MEDS ORDERED: LIDOCAINE 2% 5 ML VIAL ONE (12:43)
[2022-09-24] MEDS ORDERED: ETOMIDATE 20 MG/10 ML VIAL IV ONE (12:43)
[2022-09-24] MEDS: SUCRALFATE 1 GM/10 ML UDCUP PO SCH ×3 (14:56→20:31)
[2022-09-24] MEDS: GABAPENTIN 300 MG CAPSULE PO SCH ×3 (14:56→20:31)
[2022-09-24] MEDS: amLODIPine 10 MG TABLET PO SCH (15:08)
[2022-09-24] MEDS: PANTOPRAZOLE 40 MG TABLET PO SCH (15:36)
[2022-09-24] MEDS: FAMOTIDINE 20 MG/2 ML VIAL IV SCH ×2 (15:36→20:34)
[2022-09-24] MEDS: SODIUM CHLORIDE 0.9% 1,000 ML IV SCH ×2 (15:50→23:14)
[2022-09-25] MEDS: SUCRALFATE 1 GM/10 ML UDCUP PO SCH ×4 (09:11→20:21)
[2022-09-25] MEDS: PANTOPRAZOLE 40 MG TABLET PO SCH (09:12)
[2022-09-25] MEDS: amLODIPine 10 MG TABLET PO SCH ×2 (09:12→09:39)
[2022-09-25] MEDS: GABAPENTIN 300 MG CAPSULE PO SCH ×3 (09:12→20:22)
[2022-09-25] MEDS: MORPHINE 2 MG/1 ML SYRINGE IV PRN ×2 (09:12→21:16)
[2022-09-25 09:32] LABS: Basophils % 0.3 % (0.0-0.8); Eosinophils # 0.2 10*3/uL (0.0-0.87); Eosinophils % 4.1 % (0.00-10.9); Hematocrit 32.4 VOL% (35.7-47.0); Hemoglobin 10.6 GM/DL (12.0-16.0); Lymphocytes % 55.9 % (21.3-54.2); Mean Corpuscular HGB Conc 32.7 GM/DL (32-36); Mean Corpuscular Volume 105.9 FL (87-102); Mean Platelet Volume 10.1 FL (9.6-12.0); Monocytes # 0.3 10*3/uL (0.11-0.8); Monocytes % 7.2 % (1.7-12.7); Neutrophils % 32.5 % (38.7-73.9); Platelet Count 200 T/CUMM (130-400); Red Blood Count 3.06 MC/CUMM (3.8-5.5); Red Cell Distribution Width 14.2 % (9.3-17.3); White Blood Count 3.6 T/CUMM (4-12)
[2022-09-25 09:57] LABS: Bilirubin,Total 0.9 MG/DL (0.20-1.00); Calcium 9.5 MG/DL (8.5-10.1); Osmolality,Calculated 285.8 MOS/KG (273-304); Potassium 4.6 MMOL/L (3.5-5.1); Total Protein 5.9 G/DL (6.4-8.2)
[2022-09-25 10:03] LABS: Eosinophils 6 % (0-10); Lymphocytes 57 % (20-55); Total Cells Counted 100
[2022-09-25 10:04] LABS: Platelet Estimate Adequate
[2022-09-25] MEDS: FAMOTIDINE 20 MG/2 ML VIAL IV SCH (10:52)
[2022-09-25] MEDS: ONDANSETRON 4 MG/2 ML VIAL IV PRN ×2 (13:20→17:30)
[2022-09-25] MEDS: FAMOTIDINE 20 MG TABLET PO SCH (20:21)
[2022-09-26] MEDS: ONDANSETRON 4 MG/2 ML VIAL IV PRN ×2 (03:33→08:30)
[2022-09-26 05:50] LABS: Basophils % 0.3 % (0.0-0.8); Eosinophils # 0.1 10*3/uL (0.0-0.87); Eosinophils % 3.3 % (0.00-10.9); Hematocrit 31.5 VOL% (35.7-47.0); Hemoglobin 10.1 GM/DL (12.0-16.0); Lymphocytes # 1.8 10*3/uL (1.4-4.0); Lymphocytes % 49.3 % (21.3-54.2); Mean Corpuscular HGB Conc 32.1 GM/DL (32-36); Mean Corpuscular Volume 106.8 FL (87-102); Mean Platelet Volume 10.1 FL (9.6-12.0); Monocytes # 0.2 10*3/uL (0.11-0.8); Monocytes % 6.4 % (1.7-12.7); Neutrophils % 40.7 % (38.7-73.9); Platelet Count 188 T/CUMM (130-400); Red Blood Count 2.95 MC/CUMM (3.8-5.5); Red Cell Distribution Width 14.1 % (9.3-17.3); White Blood Count 3.6 T/CUMM (4-12)
[2022-09-26 06:08] LABS: Alanine Aminotransferase 13 U/L (13-56); Albumin 2.6 G/DL (3.4-5.0); Alkaline Phosphatase 106 U/L (45-117); Aspartate Amino Transferase 11 U/L (0-37); Bilirubin,Total < 0.39 MG/DL (0.20-1.00); Blood Urea Nitrogen 16 MG/DL (7-18); Carbon Dioxide 25 MMOL/L (21-32); Chloride 115 MMOL/L (98-107); Glucose 104 MG/DL (74-106); Osmolality,Calculated 288.7 MOS/KG (273-304); Potassium 4.2 MMOL/L (3.5-5.1); Sodium 145 MMOL/L (136-145); Total Protein 5.7 G/DL (6.4-8.2)
[2022-09-26] MEDS: SUCRALFATE 1 GM/10 ML UDCUP PO SCH ×2 (09:10→12:26)
[2022-09-26] MEDS: PANTOPRAZOLE 40 MG TABLET PO SCH (09:11)
[2022-09-26] MEDS: GABAPENTIN 300 MG CAPSULE PO SCH (09:11)
[2022-09-26] MEDS: FAMOTIDINE 20 MG TABLET PO SCH (09:11)
[2022-09-26] MEDS: amLODIPine 10 MG TABLET PO SCH (09:11)
[2022-09-26] MEDS: MORPHINE 2 MG/1 ML SYRINGE IV PRN (10:13)
[2022-09-26] MEDS ORDERED: ALUM/MAG/SIMETH/LIDO VISC 1:1 30 ML BOTTLE PO ONE (11:55)
[2022-09-26 12:01] VITALS: BP 153/54
== END 2022-09-26 15:44 | disposition home or self-care (01) ==
LOC: N.5E 12:22 → N.ED 12:22 → SUATTDRO 18:01 → N.5E 19:34
PROVIDERS: ADMIT Internal Medicine Geriatric Medicine; ATTEND Family Medicine